=== PATIENT | male | born 1935 | race Caucasian/White ===

== ENCOUNTER 2016-11-23 10:49 | Inpatient (IN) ==
[2016-11-23] MEDS ORDERED: ACETAMINOPHEN 500 MG TABLET PO STA (10:59)
[2016-11-23] MEDS ORDERED: SODIUM CHLORIDE 0.9% 1,000 ML IV STA ×2 (11:02→11:33)
[2016-11-23] MEDS ORDERED: ACETAMINOPHEN 500 MG TABLET ONE (11:03)
[2016-11-23 11:17] LABS: Hematocrit 28.6 VOL% (42.0-52.0); Hemoglobin 10.4 GM/DL (14.0-18.0); Immature Granulocytes % 2.8 %; Immature Granulocytes Absolute 0.01 #; Lymphocytes # 0.3 10*3/uL (1.4-4.0); Lymphocytes % 69.4 % (21.2-54.2); Mean Corpuscular HGB Conc 36.4 GM/DL (32-36); Mean Corpuscular Hemoglobin 35 PG (27-34); Mean Corpuscular Volume 97.3 FL (87-102); Mean Platelet Volume 13.2 FL (9.6-12.0); Monocytes % 2.8 % (1.7-12.7); Neutrophils # 0.1 10*3/uL (1.4-7.4); Platelet Count 13 T/CUMM (130-400); Red Blood Count 2.94 MC/CUMM (3.8-5.5); Red Cell Distribution Width 15.2 % (9.3-17.3)
[2016-11-23 11:19] LABS: White Blood Count 0.4 T/CUMM (4-12)
[2016-11-23 11:22] LABS: Apearance,Urine CLEAR (Clear); Bacteria,Urine Moderate /HPF (Few); Bilirubin,Urine Negative (Negative); Blood, Urine Negative (Negative); Glucose,Urine (UA) Negative (Negative); Ketones,Urine 5 mg/dL (Negative); Nitrite,Urine Negative (Negative); Protein,Urine 30 MG/DL; RBC,Urine 2 /HPF (0-4); Squamous Epithelial Cell,Urine Occasional /HPF (0-10); Urine Color Amber (Yellow); Urine Specific Gravity 1.015 (1.001-1.035); WBC,Urine 4 /HPF (0-6)
[2016-11-23] MEDS ORDERED: LEVOFLOXACIN INJ 750 MG in PREMIX 1 EACH IV STA (11:27)
--- NOTE | 2016-11-23 11:29 | XRay Report ---
Exam: XR chest 1V portable Date: 11/23/2016 10:58 AM Indication: Shortness of breath fever Comparison: 12/10/2014 Technical: AP portable Findings: Mild cardiac enlargement. There is resolution of the right basilar interstitial pneumonic infiltrate when compared to the previous examination. No obvious consolidating infiltrates or effusions clearly seen. There is elevation right hemidiaphragm. No pneumothorax. External cardiac leads are present. Impression: 1. Cardiomegaly without decompensation or acute infiltrates with resolution of previous bilateral basilar pneumonic infiltrates . PROCEDURE INTERPRETED AT [facility] DEPARTMENT OF RADIOLOGY Final Report Signed by: Dr. Luigi Echevarria
[2016-11-23] MEDS ORDERED: LEVOFLOXACIN INJ 150 ML IV ONE (11:30)
--- NOTE | 2016-11-23 11:44 | Emergency Department Note ---
Rusty Christianson Manpreet, am scribing for, and in the presence of, Aleshia Alvarado DO 11: 43. IChristiano Debra, DO, personally performed the services described in this documentation, ascribed by Dragan Ojeda in my presence, and it is both accurate and complete . Arrival - Arrival Chief Complaint: Altered Mental Status Stated Complaint: altered LOC ED Nursing Triage Note: Complains of altered mental status and fever. Was recently diagnosed with uti. Currently taking macrobid. Started abx yesterday. Mode of Arrival: Stretcher Time Seen by Provider: 11/23/16 11:27 - History of Present Illness HPI Narrative: Pt is a 81 y/o male who is brought to the ED by his and granddaughter, his primary historians, who reported the pt with CC of AMS and fever since yesterday. Pt Dx'ed with UTI and started Abx yesterday. Pt is unable to how many kids he has when prompted. Pt also c/o pain to this right leg. Pt has a PMHx of bladder CA but is in remission. Pt also has leukemia and sees Dr. Roger. No other pains/complaints reported to ED. Allergies/Adverse Reactions: Allergies Allergy/AdvReac Type Severity Reaction Status Date / Time No Known Allergies Allergy Verified 03/11/16 15:24 Home Medications: Home Medications Medication Instructions Recorded Confirmed Type Aspirin [Ecotrin] 81 mg PO MOWEFR 12/06/14 11/23/16 History Gabapentin 600 mg PO DAILY 12/06/14 11/23/16 History Montelukast Tab [Singulair Tab] 10 mg PO DAILY 12/06/14 11/23/16 History Potassium Chloride 20 meq PO DAILY 12/06/14 11/23/16 History predniSONE TAB [PredniSONE] 10 mg PO DAILY #10 tablet 12/10/14 11/23/16 Rx Meloxicam [Meloxicam] 15 mg PO DAILY 11/23/16 11/23/16 History Nitrofurantoin Macrocrystal 100 mg PO BID 11/23/16 11/23/16 History [Nitrofurantoin] Omeprazole [Omeprazole] 20 mg PO DAILY 11/23/16 11/23/16 History amLODIPine [Norvasc] 10 mg PO DAILY 11/23/16 11/23/16 History Review of System - Review of System 12 point system: reviewed and no additional remarkable complaints except as stated - Review of System Constitutional: Present: chills, fever, weakness. Absent: diaphoresis Respiratory: Absent: cough, respiratory distress Cardiovascular: Absent: chest pain, dyspnea on exertion Gastrointestinal: Absent: abdominal pain, nausea, vomiting Musculoskeletal: Present: leg pain (Right leg pain) Neurological: Present: confusion. Absent: headache, weakness Medical,Surgical,& Family Hx - Medical History Cardio: History of: Aneurysm (Aortic (1967)) Neurology: History of: Vertigo HEENT: History of: Ear Problem (hard of hearing) Rheumatology: History of;: Rheumatoid Arthritis Respiratory: History of: Respiratory Problems (non-specific per family) Genitourinary: History of: Genitourinary Cancer (Bladder Cancer (2011)), Problems (status post cystectomy for bladder cancer) Gastrointestinal: History of: GERD Hematology: History of: Blood Disorders (myelodysplastic syndrome) - Surgical History Thoracic Surgeries: Patient denies;: Organ Transplant HEENT Surgeries: Surgical HX of: Eye Surgery (Cataract Surgery), Tonsilectomy & Adenoidectomy (removed at age 6) Abdominal Surgeries: Surgical HX of: Colonoscopy, Hernia Repair Reproductive Surgeries: Surgical HX of;: Genitourinary Surgery (urostomy (2011)) , Prostate Surgery (removed (2011)) - Social History Smoking Status: Never smoker Frequency of Alcohol Use: None Type of Drug Use: None Exam Vital Signs: Vital Signs Temperature 103.4 F H 11/23/16 10:55 Pulse Rate 108 H 11/23/16 13:15 Respiratory Rate 20 11/23/16 12:08 Blood Pressure 93/53 11/23/16 13:15 O2 Sat by Pulse Oximetry 95 11/23/16 13:15 - General Exam limited due to: ALOC - Head Head exam: Present: atraumatic, normocephalic, normal inspection - Eye Eye exam: Present: normal appearance, PERRL, EOMI - ENT ENT exam: Present: normal exam, normal oropharynx, mucous membranes dry, TM's normal bilaterally - Neck Neck exam: Present: normal inspection, full ROM, trachea midline. Absent: tenderness, thyromegaly - Chest Chest inspection: Present: normal inspection, symmetric chest wall rise. Absent : tenderness - Respiratory Respiratory exam: Present: normal lung sounds bilaterally. Absent: accessory muscle use, respiratory distress - Cardiovascular Cardiovascular exam: Present: normal rhythm, tachycardia, normal heart sounds. Absent: murmur, rubs, gallop - Abdominal Exam Abdominal exam: Present: soft, distention, normal bowel sounds, other ( Ileostomy in RLQ). Absent: tenderness, diminished bowel sounds - Extremities Exam Extremities exam: Present: full ROM. Absent: normal inspection, joint swelling - Expanded Lower Right Lower Lower leg exam: Present: ecchymosis - Back Exam Back exam: Present: normal inspection, full ROM. Absent: tenderness - Neurological Exam Neurological exam: Present: alert, CN II-XII intact, reflexes normal - Psychiatric Psychiatric exam: Present: normal affect, normal mood - Skin Skin exam: Present: warm, dry, intact, normal color. Absent: pallor Course Course Narrative: spoke with hospitalist who will admit the patient Results - Labs CBC & BMP: 11/23/16 11:03 11/23/16 11:03 Lab Results: I have reviewed the patients labs Labs: Laboratory Tests 11/23/16 11/23/16 10:57 11:03 WBC 0.4 L* RBC 2.94 L Hgb 10.4 L Hct 28.6 L MCH 35 H MCHC 36.4 H Plt Count 13 L* MPV 13.2 H Neut % (Auto) 25.0 L Lymph % (Auto) 69.4 H Neut # (Auto) 0.1 L Lymph # (Auto) 0.3 L [place] # (Auto) 0.0 L Urine pH 6.0 Ur Specific [place] 1.015 Urine Protein 30 Urine Ketones 5 Urine Urobilinogen 2.0 H Urine RBC 2 Urine WBC 4 Laboratory Tests 11/23/16 11/23/16 11/23/16 11:03 11:03 11:03 Sodium 135 L Potassium 3.9 Chloride 100 Carbon Dioxide 22 Anion Gap 16.9 H BUN 36 H Creatinine 1.80 H Lactic Acid 3.1 H Calcium 7.8 L Total Bilirubin 2.20 H Ammonia < 10 L Total Protein 6.2 L Albumin 3.3 L Amylase 18 L Lipase 50.0 L Blood Type O POSITIVE Antibody Screen Negative - Diagnostic Findings Procedure: Chest x-ray: report reviewed by me (1. Cardiomegaly without decompensation or acute infiltrates with resolution of previous bilateral basilar pneumonic infiltrates.) Disposition Clinical Impression: Sepsis Case discussed with: patient, patient's family Disposition: Still a Patient Condition: Stable Time of Disposition: 13:30
[2016-11-23 11:47] LABS: Albumin 3.3 G/DL (3.4-5.0); Bilirubin,Total 2.2 MG/DL (0.2-1.0); Calcium 7.8 MG/DL (8.5-10.1); Lactic Acid 3.1 MMOL/L (0.4-2.0); Osmolality,Calculated 277.1 MOS/KG (273-304); Potassium 3.9 MMOL/L (3.5-5.1); Total Protein 6.2 G/DL (6.4-8.3)
--- NOTE | 2016-11-23 12:27 | Ultrasound Report ---
US venous doppler LE RT Indication: Right lower extremity pain and swelling. Comparison: None. Technique: Using transcutaneous probe, color Doppler, spectral Doppler, and grayscale images prior to and following compression were obtained of the right lower extremity. Ultrasound images were captured and stored. Interrogated venous structures include the right common femoral vein, superficial femoral vein (proximal, mid, and distal), and popliteal vein. Findings: There is no evidence of thrombus within the interrogated right lower extremity venous structures. Spectral flow and color flow are present within the interrogated venous segments. Impression: 1. No evidence of venous thrombosis. 11/23/2016 12:24 PM PROCEDURE INTERPRETED AT [facility] DEPARTMENT OF RADIOLOGY Final Report Signed by: Dr. Venu Sen
[2016-11-23 12:58] LABS: Hypochromasia 2+; Lymphocytes 40 % (20-55); Microcytosis 1+; Platelet Estimate Decreased; Segmented Neutrophils 60 % (50-85); Total Cells Counted 100
[2016-11-23] MEDS ORDERED: ONDANSETRON 4 MG/2 ML VIAL IV PRN (14:01)
--- NOTE | 2016-11-23 14:15 | Hospitalist History & Physical ---
Assessment and Plan (1) Cellulitis Status: Acute Assessment and plan: Patient's exam suggests active infection in the right lower extremity was severely underestimated due to lack of white blood cells. He is certainly toxic if not septic at this point. Volume resuscitation will be undertaken with extended spectrum antibiotics including vancomycin coverage. Infectious disease will be consulted for management assistance. Patient will be placed on reverse isolation due to his neutropenia Current Visit: Yes (2) Bladder cancer Status: Chronic Assessment and plan: Cystectomy with ileal conduit Current Visit: Yes (3) Pancytopenia, acquired Status: Chronic Assessment and plan: Patient's medical records indicate a possible myelodysplastic syndrome. It is unclear what type of treatment he may have had previously as regard to his bladder cancer or composition of his current chemotherapy. His absolute neutrophil count of 100 indicates high potential for infection without dramatic inflammatory changes. Oncology will be consulted regarding details of his active treatment and recommendation on management of his thrombocytopenia. Current Visit: No History of Present Illness History of present illness: Mr. Alexander is a 81 year old male with history of bladder cancer whose family reports that he is being treated for "leukemia" records are incomplete but appears as though he has been diagnosed with myelodysplastic syndrome. He was treated with chemotherapy for approximately 6 months off chemotherapy for 3 month and resumed approximately 1 month ago for decreased blood counts. He completed his initial course on this occasion 3 weeks ago. The patient several days ago began to complain of right lower extremity pain family noted no changes. A urine culture done through his ileostomy led to initiation of Macrodantin as an outpatient. He developed a pattern of encephalopathy with memory and word finding problems and diffuse weakness. This morning the family noticed an area on the right calf of deep hyperpigmentation. He presented to the emergency department with a temperature of 103 sinus tachycardia and a blood pressure of 93/53. The patient has had no cough or sputum production nausea vomiting or diarrhea. Home Medications Medication Instructions Recorded Confirmed Type Aspirin [Ecotrin] 81 mg PO MOWEFR 12/06/14 11/23/16 History Gabapentin 600 mg PO DAILY 12/06/14 11/23/16 History Montelukast Tab [Singulair Tab] 10 mg PO DAILY 12/06/14 11/23/16 History Potassium Chloride 20 meq PO DAILY 12/06/14 11/23/16 History predniSONE TAB [PredniSONE] 10 mg PO DAILY #10 tablet 12/10/14 11/23/16 Rx Meloxicam [Meloxicam] 15 mg PO DAILY 11/23/16 11/23/16 History Nitrofurantoin Macrocrystal 100 mg PO BID 11/23/16 11/23/16 History [Nitrofurantoin] Omeprazole [Omeprazole] 20 mg PO DAILY 11/23/16 11/23/16 History amLODIPine [Norvasc] 10 mg PO DAILY 11/23/16 11/23/16 History Allergies Allergy/AdvReac Type Severity Reaction Status Date / Time No Known Allergies Allergy Verified 03/11/16 15:24 Medical,Surgical,& Family Hx - Medical History Neurology: History of: Vertigo HEENT: History of: Ear Problem Rheumatology: History of;: Rheumatoid Arthritis Genitourinary: History of: Genitourinary Cancer (Bladder Cancer (2011)) Gastrointestinal: History of: GERD Hematology: History of: Blood Disorders (myelodysplastic syndrome) - Surgical History Thoracic Surgeries: Patient denies;: Organ Transplant HEENT Surgeries: Surgical HX of: Eye Surgery (Cataract Surgery), Tonsilectomy & Adenoidectomy (removed at age 6) Abdominal Surgeries: Surgical HX of: Appendectomy, Cholecystectomy, Colonoscopy , Hernia Repair Reproductive Surgeries: Surgical HX of;: Genitourinary Surgery (urostomy (2011)) , Prostate Surgery (removed (2011)) - Social History Smoking Status: Never smoker Frequency of Alcohol Use: Rarely Type of Drug Use: None ROS unobtainable: due to delirium, other (Review of systems performed with spouse.) - Constitutional Constitutional: Present: daytime sleepiness, lethargy. Absent: chills, fever(s) , headache(s) - EENT Nose, mouth and throat: Absent: headache(s), neck pain - Cardiovascular Cardiovascular: Present: dyspnea. Absent: chest pain at rest, chest pain with activity, orthopnea, palpitations - Respiratory Respiratory: Absent: cough, hemoptysis, wheezing - Gastrointestinal Gastrointestinal: Absent: abdominal pain, coffee ground emesis, diarrhea, dysphagia, heartburn, hematemesis, hematochezia, melena, nausea, vomiting - Genitourinary Genitourinary: Absent: hematuria - Neurological Neurological: Present: confusion, memory loss. Absent: syncope - Psychiatric Psychiatric: Present: confusion Exam - Constitutional Vitals: Period Temp Pulse Resp BP Sys/Faulkner Pulse Ox Last 24 Hr 98.5 F-103.4 F 103-116 20-24 89-126/52-69 94-96 General appearance: over weight - Head Head exam: Present: atraumatic - Neck Neck exam: Absent: lymphadenopathy, thyromegaly - Respiratory Respiratory exam: Present: clear to auscultation bilaterally. Absent: rales, rhonchi, wheezes - Cardiovascular Cardiovascular exam: Present: regular rate and rhythm (Bilateral decrease in peripheral pulses), other. Absent: carotid bruit - GI/Abdominal GI/Abdominal exam: Present: normal bowel sounds. Absent: distended, organomegaly, tenderness - Extremities Exam Extremities exam: Present: other (Large ecchymosis right calf adjacent warmth with minimal skin changes per) - Neurological Exam Neurological exam: Present: alert. Absent: oriented X3 Results - Labs CBC & BMP: 11/23/16 11:03 11/23/16 11:03 Labs: Absolute neutrophils 100 Urinalysis benign Ammonia less than 10 Total bilirubin 2.2 Albumin 3.3 Lactate level 3.1 - Diagnostic Findings Procedure: Chest x-ray: image reviewed by me (Aortic ectasia versus aneurysm. Normal heart size clear lung reyes no infiltrate) Quality Measures - VTE Contraindication to Pharmacological VTE Prophylaxis: Thrombocytopenia Contraindication to Mechanical VTE Prophylaxis: Local Inflammation
[2016-11-23] MEDS: DEXTROSE 5% NACL 0.9% 1,000 ML IV SCH ×2 (15:10→21:32)
--- NOTE | 2016-11-23 16:30 | Infectious Disease Consult ---
Assessment and Plan (1) Cellulitis Status: Acute Assessment and plan: He has obvious cellulitis of the right posterior calf, there is a hemorrhagic area and this may represent an atypical infection which patient will be prone given his profound neutropenia. Recommendations: Agree with empiric vancomycin and meropenem. If we have no positive cultures he may need a punch biopsy of the area to get tissue cultures. Thank you very much for the consult. Will follow. Discussed with family at bedside Discussed with Dr. John Current Visit: Yes (2) Sepsis Status: Acute Assessment and plan: Source is cellulitis of the right leg and there may be associated bacteremia. He is hypotensive though there has been some improvement. He is on empiric antibiotics and we will follow up the cultures. He is awaiting transfer to the ICU for more close monitoring. Prognosis guarded Current Visit: Yes (3) Acute renal disease Status: Acute Assessment and plan: Most likely due to sepsis with hypotension. Renal function will be monitored very closely on vancomycin. If there is further worsening we may need to switch from vancomycin to daptomycin. Current Visit: No (4) Pancytopenia, acquired Status: Chronic Current Visit: No (5) Febrile neutropenia Status: Acute Assessment and plan: Patient is quite profoundly neutropenic with ANC of only about 100. He is at risk for severe infections including atypical infections. He is on broad- spectrum antibiotics currently and we will monitor closely. He may need to granulocyte colony-stimulating factor. Current Visit: Yes History of Present Illness Chief complaint: Fever, pancytopenia History of present illness: Mr. Alexander is a 81 year old male with history of leukemia diagnosed about 6 months ago and he has been getting chemotherapy last was about a month ago. He was relatively until about 3 days ago when he started having pain in his right leg, worse with weightbearing. This morning his noticed a large red spot to the back of the leg which is tender to touch. It is also has been weeping as the day progressed. Patient had high fever to 103 this morning and was confused and so ambulance was called to bring him to the hospital. He had a temperature of 103.4 on arrival. His blood pressure has been a little low and so though he was initially put on the floor decision was made to transfer him to the ICU. Patient noted to have profound neutropenia. I am asked to assist with antibiotics. Patient's last admission to hospital was about 1-1/2 years ago. he has not recently been on antibiotics. Home Medications Medication Instructions Recorded Confirmed Type Aspirin [Ecotrin] 81 mg PO MOWEFR 12/06/14 11/23/16 History Gabapentin 600 mg PO DAILY 12/06/14 11/23/16 History Montelukast Tab [Singulair Tab] 10 mg PO DAILY 12/06/14 11/23/16 History Potassium Chloride 20 meq PO DAILY 12/06/14 11/23/16 History predniSONE TAB [PredniSONE] 10 mg PO DAILY #10 tablet 12/10/14 11/23/16 Rx Meloxicam [Meloxicam] 15 mg PO DAILY 11/23/16 11/23/16 History Nitrofurantoin Macrocrystal 100 mg PO BID 11/23/16 11/23/16 History [Nitrofurantoin] Omeprazole [Omeprazole] 20 mg PO DAILY 11/23/16 11/23/16 History amLODIPine [Norvasc] 10 mg PO DAILY 11/23/16 11/23/16 History Allergies Allergy/AdvReac Type Severity Reaction Status Date / Time No Known Allergies Allergy Verified 03/11/16 15:24 12 point system: reviewed and no additional remarkable complaints except as stated (Per HPI) Medical,Surgical,& Family Hx - Medical History Cardio: History of: Aneurysm (Aortic (1967)) Neurology: History of: Vertigo HEENT: History of: Ear Problem Rheumatology: History of;: Rheumatoid Arthritis Respiratory: History of: Respiratory Problems (non-specific per family) Genitourinary: History of: Genitourinary Cancer (Bladder Cancer (2011)), Problems (status post cystectomy for bladder cancer) Gastrointestinal: History of: GERD Hematology: History of: Blood Disorders (myelodysplastic syndrome) - Surgical History Thoracic Surgeries: Patient denies;: Organ Transplant HEENT Surgeries: Surgical HX of: Eye Surgery (Cataract Surgery), Tonsilectomy & Adenoidectomy (removed at age 6) Abdominal Surgeries: Surgical HX of: Appendectomy, Cholecystectomy, Colonoscopy , Hernia Repair Reproductive Surgeries: Surgical HX of;: Genitourinary Surgery (urostomy (2011)) , Prostate Surgery (removed (2011)) - Social History Smoking Status: Never smoker Frequency of Alcohol Use: Rarely Type of Drug Use: None Infectious Disease Exam H&P - Constitutional Vitals: Vital Signs Temp Pulse Resp BP Pulse Ox 98.0 F 131 H 28 H 114/73 100 11/23/16 15:42 11/23/16 15:42 11/23/16 15:42 11/23/16 15:42 11/23/16 15:42 Intake and Output 11/23/16 11/23/16 11/23/16 07:59 15:59 23:59 Intake Total 2850 / 2850 Balance 2850 / 2850 Intake: IV 2150 / 2150 Levaquin Inj 750 mg In 150 / 150 Premix 1 Each @ 100 mls/ hr IV 1X ED STA Rx#: [id number] Ns 1,000 ml @ 999 mls/hr 1999 / 1999 IV 1X ED BOLUS STA Rx#: [id number] Intake - Additional IV 700 / 700 Volume (mLs) Left Hand 700 / 700 Other: Weight 106.367 kg Patient Weight 11/23/16 23:59 Weight 106.367 kg Exam: General: Patient a bit unwell-looking, he is somewhat confused though he is alert and talking HEENT: Mucous membranes pink and moist, anicteric acyanotic, surgical right pupil, left pupil reactive to light, no oropharyngeal exudates Neck: Supple, no thyroid gland enlargement Respiratory system: Breath sounds vesicular, no crepitations or wheezes Cardiovascular: Normal S1 and S2, no murmurs appreciated Abdomen: Urostomy present in right lower quadrant, normal bowel sounds, soft nontender throughout, no organomegaly or mass Genitourinary: No suprapubic, slightly cloudy urine from the urostomy Extremities: Mild bilateral lower extremity edema, there is a large somewhat hemorrhagic warm area to the posterior right calf, there is some vesiculation over the area with some mild weeping of serous fluid Skin: No rash Reports - Labs CBC & BMP: 11/23/16 11:03 11/23/16 11:03 Labs: Laboratory Results - last 24 hr 11/23/16 11/23/16 11/23/16 10:57 11:03 11:03 WBC 0.4 L* RBC 2.94 L Hgb 10.4 L Hct 28.6 L MCV 97.3 MCH 35 H MCHC 36.4 H RDW 15.2 Plt Count 13 L* MPV 13.2 H Neut % (Auto) 25.0 L Lymph % (Auto) 69.4 H [place] % (Auto) 2.8 Eos % (Auto) 0.0 Baso % (Auto) 0.0 Neut # (Auto) 0.1 L Lymph # (Auto) 0.3 L [place] # (Auto) 0.0 L Eos # (Auto) 0.0 Baso # (Auto) 0.0 Total Counted 100 Immature Gran % 2.8 Nucleated RBC % 0.0 Immature Gran # 0.01 Segmented Neutrophils 60 Lymphocytes 40 Nucleated RBCs # 0.00 Platelet Estimate Decreased Hypochromasia 2+ Microcytosis 1+ Circ Anticoag PTT Sodium 135 L Potassium 3.9 Chloride 100 Carbon Dioxide 22 Anion Gap 16.9 H BUN 36 H Creatinine 1.80 H GFR Calculation 44 BUN/Creatinine Ratio 20.00 Glucose 106 Calculated Osmolality 277.1 Lactic Acid 3.1 H Calcium 7.8 L Total Bilirubin 2.20 H AST 20 ALT 24 Alkaline Phosphatase 51 Ammonia Lactate Dehydrogenase 200 Total Protein 6.2 L Albumin 3.3 L Globulin 2.9 Albumin/Globulin Ratio 1.1 Amylase 18 L Lipase 50.0 L Urine Color [place] Urine Appearance Clear Urine pH 6.0 Ur Specific [place] 1.015 Urine Protein 30 Urine Glucose (UA) Negative Urine Ketones 5 Urine Blood Negative Urine Nitrate Negative Urine Bilirubin Negative Urine Urobilinogen 2.0 H Urine Leukocytes Negative Urine RBC 2 Urine WBC 4 Ur Squamous Epith Cells Occasional Urine Bacteria Moderate Ur Culture Indicated? Not indicated Blood Type Antibody Screen 11/23/16 11/23/16 11/23/16 11:03 11:03 11:03 WBC RBC Hgb Hct MCV MCH MCHC RDW Plt Count MPV Neut % (Auto) Lymph % (Auto) [place] % (Auto) Eos % (Auto) Baso % (Auto) Neut # (Auto) Lymph # (Auto) [place] # (Auto) Eos # (Auto) Baso # (Auto) Total Counted Immature Gran % Nucleated RBC % Immature Gran # Segmented Neutrophils Lymphocytes Nucleated RBCs # Platelet Estimate Hypochromasia Microcytosis Circ Anticoag PTT 37.9 Sodium Potassium Chloride Carbon Dioxide Anion Gap BUN Creatinine GFR Calculation BUN/Creatinine Ratio Glucose Calculated Osmolality Lactic Acid Calcium Total Bilirubin AST ALT Alkaline Phosphatase Ammonia < 10 L Lactate Dehydrogenase Total Protein Albumin Globulin Albumin/Globulin Ratio Amylase Lipase Urine Color Urine Appearance Urine pH Ur Specific [place] Urine Protein Urine Glucose (UA) Urine Ketones Urine Blood Urine Nitrate Urine Bilirubin Urine Urobilinogen Urine Leukocytes Urine RBC Urine WBC Ur Squamous Epith Cells Urine Bacteria Ur Culture Indicated? Blood Type O POSITIVE Antibody Screen Negative - Diagnostic Findings Procedure: Chest x-ray: image reviewed by me, report reviewed by me (No consolidation appreciated)
[2016-11-23] MEDS: MEROPENEM 1,000 MG in SODIUM CHLORIDE 0.9% 100 ML IV SCH (16:33)
[2016-11-23] MEDS: VANCOMYCIN INJ 1,500 MG in SODIUM CHLORIDE 0.9% 500 ML IV SCH (17:50)
[2016-11-23] MEDS ORDERED: FUROSEMIDE 40 MG/4 ML VIAL IV ONE (20:27)
[2016-11-23] MEDS ORDERED: DEXTROSE 5% NACL 0.9% 1,000 ML IV SCH (20:30)
[2016-11-23] MEDS ORDERED: SODIUM CHLORIDE 0.9% 1,000 ML IV SCH (20:30)
--- NOTE | 2016-11-23 20:35 | Event Note ---
Called by nursing that patient in resp distress. Patient received 3 liters of NS. Duonebs, solumedrol, IV lasix ordered. Patient tachycardic sinus tachy with pac. Blood pressure stable. Ordered dilt drip for HR greater than 140. Patient is extremely neutropenic and thrombocytopenic due to chemotherapy he received from Dr. Roger. He is in septic shock and has a poor prognosis. echo in am ordered. This is a complicated chemo patient that should have been admitted by Oncology. I have readdressed his code status and he wants to remain a full code at this time. Patient has diminished breath sounds and is tight and wheezing. He has a large hematoma on his leg and I will give irradiated platelets. Critical care time 35 min
[2016-11-23] MEDS: FAMOTIDINE 20 MG/2 ML VIAL IV SCH (21:32)
[2016-11-23] MEDS: methylPREDNISolone SOD SUC 40 MG/1 ML VIAL IV SCH (21:39)
[2016-11-23] MEDS ORDERED: ALBUTEROL/IPRATROPIUM 3 ML NEB RESP TX SCH (23:00)
[2016-11-23 23:19] LABS: ABG Base Excess -5.2 MMOL/L (-2.5-2.5); ABG HCO3 20.2 MMOL/L (20-26); ABG Oxygen Saturation 95.5 % (95-100); ABG PH 7.426 (7.35-7.45); ABG PO2 81.8 MM HG (80-95); ABG TCO2 15.4 MMOL/L (23-27); Allen Test Positive
[2016-11-23] MEDS: CLORAZEPATE 7.5 MG TABLET PO PRN (23:47)
[2016-11-24] MEDS: DILTIAZEM INJ 100 MG in SODIUM CHLORIDE 0.9% 100 ML IV SCH ×3 (01:36→21:25)
[2016-11-24] MEDS ORDERED: ACETAMINOPHEN 500 MG TABLET PO ONE (02:35)
[2016-11-24] MEDS ORDERED: ACETAMINOPHEN 325 MG TABLET PO PRN (02:41)
[2016-11-24 02:47] LABS: Hematocrit 28.7 VOL% (42.0-52.0); Hemoglobin 10.6 GM/DL (14.0-18.0); Lymphocytes # 0.2 10*3/uL (1.4-4.0); Lymphocytes % 43.2 % (21.2-54.2); Mean Corpuscular HGB Conc 36.9 GM/DL (32-36); Mean Corpuscular Hemoglobin 36 PG (27-34); Mean Platelet Volume 10.5 FL (9.6-12.0); Monocytes % 8.1 % (1.7-12.7); Neutrophils # 0.2 10*3/uL (1.4-7.4); Neutrophils % 48.7 % (38.7-73.9); Red Blood Count 2.99 MC/CUMM (3.8-5.5); Red Cell Distribution Width 15.2 % (9.3-17.3)
[2016-11-24] MEDS: LEVALBUTEROL 1.25 MG/3 ML NEB RESP TX SCH ×6 (02:49→23:16)
[2016-11-24 02:52] LABS: White Blood Count 0.4 T/CUMM (4-12)
[2016-11-24 02:53] LABS: Platelet Count 33 T/CUMM (130-400)
[2016-11-24 03:18] LABS: ABG Base Excess -2.3 MMOL/L (-2.5-2.5); ABG HCO3 22.5 MMOL/L (20-26); ABG Oxygen Saturation 97.1 % (95-100); ABG PCO2 24.9 MM HG (35-48); ABG PH 7.498 (7.35-7.45); ABG TCO2 16.9 MMOL/L (23-27); Allen Test Positive
--- NOTE | 2016-11-24 03:23 | Event Note ---
Patient is having a mental status changes. Patient's pupils were asymmetric at this time. We are going to take him to CT scan and get a CT scan of his head emergently. Patient is awake but somewhat confused and has been running a fever during the night. Have ordered some Tylenol.
[2016-11-24 03:31] LABS: Calcium 7.9 MG/DL (8.5-10.1); Osmolality,Calculated 274.2 MOS/KG (273-304); Potassium 3.5 MMOL/L (3.5-5.1)
[2016-11-24] MEDS: methylPREDNISolone SOD SUC 40 MG/1 ML VIAL IV SCH ×4 (03:55→21:25)
[2016-11-24 04:04] LABS: Band Neutrophils 30 % (0-10); Lymphocytes 30 % (20-55); Platelet Estimate Decreased; Segmented Neutrophils 10 % (50-85); Total Cells Counted 100
--- NOTE | 2016-11-24 05:47 | XRay Report ---
XR chest 1V portable Indication: Shortness of breath Comparison: None. Technique: Portable AP chest was performed. Findings: Heart size is normal. Pulmonary vasculature appears within normal limits. No significant abnormality of the mediastinal contours demonstrated. Lungs are clear. Bones and soft tissues demonstrate no significant abnormalities. Impression: 1. No evidence of acute pathology. 11/24/2016 5:43 AM PROCEDURE INTERPRETED AT [facility] DEPARTMENT OF RADIOLOGY Final Report Signed by: Dr. Venu Sen
--- NOTE | 2016-11-24 06:00 | EKG Report ---
Stationary ECG Study [facility] ER Test Date: 11/23/2016 11:13:22 AM Pat Name: RAMON HENAO Department: Room: 130 Gender: M Import/Export Clerk: : 1935 Requested by: Aleshia Alvarado Order Number: [id number] Reading MD: SOFI MURRAY Intervals [place] Rate: 112 P: 73 IN: 170 QRS: 63 QRSD: 90 T: 79 QT: 296 QTc: 362 Interpretive Statements SINUS TACHYCARDIA WITH OCCASIONAL SUPRAVENTRICULAR PREMATURE COMPLEXES Electronically Signed On 11-24-16 07:49:03 CDT by SOFI MURRAY [email or web address]
--- NOTE | 2016-11-24 06:26 | CT Report ---
CT head/brain wo con Indication: Altered mental status. Comparison: CT head 11/24/2016. Technique: CT of the brain was performed without administration of intravenous contrast. The CT examination was performed using one or more of the following dose reduction techniques: Automatic exposure control, adjustment of the mA and kV according to patient size, use of acute or iterative reconstruction techniques. Findings: There is no evidence of acute intracranial mass, hemorrhage, or infarction. Generalized cerebral atrophy is present. Areas of decreased attenuation within the periventricular white matter and cerebral white matter are present which could be compatible with microvascular ischemia. The basal cisterns are patent. No significant abnormality is demonstrated to involve the posterior fossa or cerebellum. Orbits and globes demonstrate no evidence of significant pathology. Bilateral cataract surgery is suggested. The paranasal sinuses are clear. No significant abnormality is demonstrated to involve the mastoid air cells. The calvarium and overlying soft tissues demonstrate no evidence of acute pathology. Impression: 1. No CT evidence of acute intracranial pathology. Stable interval appearance of the brain. 11/24/2016 6:22 AM PROCEDURE INTERPRETED AT [facility] DEPARTMENT OF RADIOLOGY Final Report Signed by: Dr. Venu Sen
--- NOTE | 2016-11-24 06:39 | EKG Report ---
Stationary ECG Study [facility] Test Date: 11/23/2016 8:22:13 PM Pat Name: RAMON HENAO Department: Room: 130 Gender: M Security Checker: : 1935 Requested by: Karen Ferreira Order Number: [id number] Reading MD: SOFI MURRAY Intervals [place] Rate: 120 P: 112 TN: 174 QRS: 119 QRSD: 88 T: 129 QT: 325 QTc: 396 Interpretive Statements SINUS TACHYCARDIA WITH FREQUENT SUPRAVENTRICULAR PREMATURE COMPLEXES Possible lead misplacement Electronically Signed On 11-24-16 07:52:12 CDT by SOFI MURRAY [email or web address]
[2016-11-24] MEDS ORDERED: LABETALOL 20 MG/4 ML SYRINGE IV PRN (06:41)
--- NOTE | 2016-11-24 06:51 | XRay Report ---
XR chest 1V portable Indication: Shortness of breath Comparison: Chest x-ray 11/23/2016 Technique: Portable AP chest was performed. Findings: Heart size is borderline in size to minimally enlarged. Mild ectasia of the thoracic aorta is stable.. Pulmonary vasculature appears within normal limits. No significant abnormality of the mediastinal contours demonstrated. Lungs are clear. Bones and soft tissues demonstrate no significant abnormalities. Impression: 1. No evidence of acute pathology. Stable interval appearance of the chest. 11/24/2016 6:48 AM PROCEDURE INTERPRETED AT [facility] DEPARTMENT OF RADIOLOGY Final Report Signed by: Dr. Venu Sen
[2016-11-24] MEDS: MEROPENEM 1,000 MG in SODIUM CHLORIDE 0.9% 100 ML IV SCH ×2 (06:57→16:02)
[2016-11-24] MEDS: LABETALOL 20 MG/4 ML SYRINGE IV SCH (07:19)
--- NOTE | 2016-11-24 07:59 | Oncology Consult Note ---
History of Present Illness History of present illness: Mr. Alexander is a 81 year old male who has had pancytopenia since early in 2014. 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 At that time the patient was found to have approximately 20% blasts on bone marrow but cytogenetics were normal. The patient was treated with Dacogen. At the time of an evaluation of the patient on October 30, 2016, Dr. Roger found pancytopenia once again because the patient had severe neutropenia and thrombocytopenia with a platelet count of 50,000. In spite of comments made on this chart concerning the chemotherapy causing the pancytopenia , it appears that the myelodysplastic syndrome with increased blasts is actually the cause of the pancytopenia. Apparently the patient has been started back on Dacogen recently. He has been found to have cellulitis in his right calf. In addition, as I was dictating this, I was notified that the patient has gram- negative rods on 2 blood cultures. He is currently on Merrem and vancomycin. Infectious disease is consulted. Past medical history: No known allergies The patient had been followed in the past for bladder cancer. Past medical history is positive for: Aortic aneurysm Vertigo Rheumatoid arthritis Respiratory congestion and dyspnea Bladder cancer treated with cystectomy. GERD Surgical history: Positive cataract surgery, tonsillectomy and adenoidectomy at age 6. Positive for appendicitis post appendectomy, cholecystectomy, colonoscopy and hernia repair. Prostatectomy in 2011. Social history: Occasional alcoholic beverage intake. He has never smoked. Family history: Negative for AML or bladder cancer. Positive for arterial sclerosis. Review of systems: General: Positive for fatigue, fever and night sweats that are long-standing. ENT: Negative for mouth ulcers, nasal congestion and nasal drainage. Eyes: Negative for vision change and decreased visual acuity. Respiratory: Positive for pulmonary congestion and occasional cough. Negative for chest pain or hemoptysis. Cardiovascular: Positive for aortic aneurysm. Negative for cardiac syncope, claudication or irregular heartbeat/palpitations. GI: Positive for GERD. Negative for abdominal pain, constipation, decreased appetite, diarrhea or vomiting. : The patient has had a cystectomy. Endocrine: Negative for cold intolerance. Negative for thyroid disease or diabetes. Psychiatric: Negative for psychiatric illness. Skin: Negative for rash or skin lesions. Musculoskeletal: Positive for rheumatoid arthritis. Hematologic: Positive for pancytopenia but negative for easy bleeding or easy bruising. Physical examination: General: The patient appears to be acutely and chronically ill. Eyes: He has bilateral arcus senilis with normal lids and conjunctivae. His vision does not appear to be very good. ENT: His oral mucosa and pharynx are normal. He is hard of hearing. His trachea is midline and he has no neck masses. Lungs and thorax: He is tachypneic. His chest moves symmetrically with respiration. There is no chest wall tenderness. Breath sounds are coarse throughout but there are no rubs, rales or rhonchi. Expiratory phase of respiration is relatively normal. Cardiovascular: His heart rhythm is regular without murmur, gallop or rub. There is no jugular venous distention, clubbing or cyanosis. Abdomen: Bowel sounds are normal. There are no abdominal masses, organomegaly, distention, tenderness or ascites. Musculoskeletal: He has arthritic changes in his hands. 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 Neurologic: Cranial nerves II through XII appear to be intact except that he is hard of hearing. He has no obvious focal neurologic deficits. Nodes: I palpate no cervical, supraclavicular, submandibular, axillary adenopathy. Skin: Nailbeds appear normal except that his nails are very thin. I see no other significant abnormalities of the skin other than his right lower leg is bandaged because of the cellulitis. I agree with the current antibiotic plans and hematologic support. However, this patient's prognosis is exceedingly poor because of his long-standing myelodysplastic syndrome that does not appear to be responding well to resumption of chemotherapy yet. Blood work on this admission includes a white cell count of 400 with an absolute neutrophil count of 200 today. His hemoglobin is 10.6 and his platelet count is 33,000. His comprehensive metabolic profile includes a serum creatinine of 1.8 on admission and the creatinine is down to 1.6 today. In addition, the patient has a low serum albumin of 3.3. The patient was supposed to be scheduled for a knee replacement but I doubt that he will ever undergo that procedure. In addition, this is a myelodysplastic syndrome with pancytopenia, according to Dr. Roger. The patient is 81 years old and his short-term prognosis is very poor in view of this fact. Thank you for consulting me. I will follow him with you. His prognosis is very grave, in my opinion. Impression: Gram-negative neutropenic sepsis possibly developing from cellulitis of the right calf pancytopenia due to myelodysplastic syndrome neutropenia with an ANC of 200 anemia with hemoglobin of 10.6 thrombocytopenia with platelet count of 33,000 COPD history of aortic aneurysm rheumatoid arthritis renal failure Home Medications Medication Instructions Recorded Confirmed Type Aspirin [Ecotrin] 81 mg PO MOWEFR 12/06/14 11/23/16 History Gabapentin 600 mg PO BID 12/06/14 11/23/16 History Montelukast Tab [Singulair Tab] 10 mg PO BEDTIME 12/06/14 11/23/16 History Potassium Chloride 10 meq PO DAILY 12/06/14 11/23/16 History predniSONE TAB [PredniSONE] 10 mg PO DAILY #10 tablet 12/10/14 11/23/16 Rx Gabapentin Cap/Tab [Neurontin 200 mg PO BEDTIME 11/23/16 11/23/16 History Cap/Tab] Meloxicam [Meloxicam] 15 mg PO DAILY 11/23/16 11/23/16 History Nitrofurantoin Macrocrystal 100 mg PO BID 11/23/16 11/23/16 History [Nitrofurantoin] Omeprazole [Omeprazole] 20 mg PO Q3DAY 11/23/16 11/23/16 History amLODIPine [Norvasc] 5 mg PO DAILY 11/23/16 11/23/16 History Allergies Allergy/AdvReac Type Severity Reaction Status Date / Time No Known Allergies Allergy Verified 03/11/16 15:24 Medical,Surgical,& Family Hx - Medical History Cardio: History of: Aneurysm (Aortic (1967)) Neurology: History of: Vertigo HEENT: History of: Ear Problem Rheumatology: History of;: Rheumatoid Arthritis Respiratory: History of: Respiratory Problems (non-specific per family) Genitourinary: History of: Genitourinary Cancer (Bladder Cancer (2011)), Problems (status post cystectomy for bladder cancer) Gastrointestinal: History of: GERD Hematology: History of: Blood Disorders (myelodysplastic syndrome) - Surgical History Thoracic Surgeries: Patient denies;: Organ Transplant HEENT Surgeries: Surgical HX of: Eye Surgery (Cataract Surgery), Tonsilectomy & Adenoidectomy (removed at age 6) Abdominal Surgeries: Surgical HX of: Appendectomy, Cholecystectomy, Colonoscopy , Hernia Repair Reproductive Surgeries: Surgical HX of;: Genitourinary Surgery (urostomy (2012)) , Prostate Surgery (removed (2012)) - Social History Smoking Status: Never smoker Frequency of Alcohol Use: Rarely Type of Drug Use: None Exam - Constitutional Vitals: Period Temp Pulse Resp BP Sys/Faulkner Pulse Ox Last 24 Hr 98.0 F-103.4 F 81-152 17-97 89-156/52-108 88-100 Results - Labs CBC & BMP: 11/24/16 02:43 11/24/16 02:43 Quality Measures - VTE Contraindication to Pharmacological VTE Prophylaxis: Thrombocytopenia Contraindication to Mechanical VTE Prophylaxis: Local Inflammation
--- NOTE | 2016-11-24 08:47 | Physician Query Form ---
CLICK EDIT DOCUMENT TO SELECT QUERY ANSWER --> OK --> SIGN Diamante Sen RN, CCDS Certified Clinical Driver Retraining Instructor W) [phone] (f) [phone] [email or web address] PROVIDERS: Make your selection(s) from the choices in EACH section by typing an "x" and enter comments in the comment section. Please use your independent medical judgment in providing your response. This request does not imply that any particular answer is desired or expected. CLINICAL INDICATORS: (Providers should not edit this section) The medical record indicates that the patient was admitted with Sepsis, AMS, on the 7th: "Patient's pupils were asymmetric at this time" and CT of the brain was ordered. ACUITY: ( x) Acute ( ) Acute on Chronic ( ) Chronic ( ) Clinically unable to determine NATURE: ( x) Delirium due to general medical condition ( ) Dementia ( ) Encephalopathy ( ) Unconscious ( ) Transient level of awareness ( ) Comatose ( ) Locked-in State ( ) Persistent Vegetative State ( ) Other, please specify: ( ) Clinically unable to determine Please indicate the underlying cause of the altered mental status (CHECK ALL THAT APPLY): ( ) Baseline dementia ( ) Alzheimer's disease ( ) Parkinson's disease ( ) Lewy body dementia ( ) Acute stroke ( ) Late effect of stroke ( ) Reactive (from emotional stress, psychological trauma) ( ) Due to narcotics/other drugs ( ) Post procedural delirium ( ) Transient ischemic attack ( ) Generalized cerebral edema ( ) Normal pressure hydrocephalus ( ) Psychiatric illness ( ) Other, please specify: ( ) Clinically unable to determine Please indicate if there is an infection, sepsis, dehydration or specific organ failure that is causing the dementia. Be specific with clarifying the relationship between that process and the mental status change. COMMENTS: PLEASE ALSO DOCUMENT RESPONSE IN PROGRESS NOTES AND/OR DISCHARGE SUMMARY Use of terms such as suspected, likely, or probable (associated with a specific diagnosis that is being evaluated, monitored, or treated as if it exists) are acceptable and can be restated in the discharge summary if not ruled out. MTDD
[2016-11-24] MEDS ORDERED: predniSONE 10 MG TABLET PO SCH (09:00)
[2016-11-24] MEDS ORDERED: PANTOPRAZOLE 40 MG TABLET PO SCH (09:00)
[2016-11-24] MEDS: FAMOTIDINE 20 MG/2 ML VIAL IV SCH ×2 (09:08→21:25)
--- NOTE | 2016-11-24 10:51 | Infectious Disease Progress ---
Assessment and Plan (1) Cellulitis Status: Acute Assessment and plan: Cellulitis posterior aspect of the right leg, the area looks slightly better today. Blood cultures coming back positive for gram-negative rods. Recommendations: Continue empiric broad-spectrum antibiotics pending finalization of the cultures. We will also repeat blood cultures tomorrow. Adjust antibiotics as able depending on finalized culture results. r Current Visit: Yes (2) Sepsis Status: Acute Assessment and plan: Patient has septicemia due to gram-negative bacteria. He seems slightly better today supportive of a positive response to the current antibiotics. Prognosis guarded Current Visit: Yes (3) Acute renal disease Status: Acute Assessment and plan: Most likely due to sepsis with hypotension. Renal function slightly better today. If no gram positives isolated by day 3 will stop the vancomycin. Current Visit: No (4) Pancytopenia, acquired Status: Chronic Assessment and plan: Reportedly due to myelodysplastic syndrome. Current Visit: No (5) Febrile neutropenia Status: Acute Assessment and plan: Causes gram-negative septicemia patient is on appropriate broad-spectrum antibiotic therapy. Current Visit: Yes Infectious Disease - PN: Subj Interval history: Patient was transferred to ICU yesterday due to hypotension and confusion. Overnight he had severe tachycardia to almost 150 and is now on a Cardizem drip. He also had fever last night over 102. This morning he is feeling a little better less pain in his right leg. Infectious Disease Exam (PN) - Constitutional Vitals: Temp Pulse Resp BP Pulse Ox 99.5 F 89 21 104/73 97 11/24/16 08:00 11/24/16 10:30 11/24/16 10:00 11/24/16 10:30 11/24/16 10:00 General appearance: over weight Exam: General appearance: A little more alert today and very pleasant, less toxic looking - Eye Eye exam: Present: EOMI. no icterus Pupils: Present: SHAZIA - ENT ENT exam: no oral exudates - Respiratory Respiratory exam: vesicular BS, no crepitations or wheezes - Cardiovascular Cardiovascular exam: regular rate and rhythm, no murmurs - GI/Abdominal GI/Abdominal exam: normal bowel sounds, soft, non-tender, no organomegaly or mass - Extremities Exam Extremities exam: The hemorrhagic area to the posterior right leg is less angry looking, also less hyperemic and indurated. The overlying blisters have ruptured with denuding of the skin. There is a large bulla just below the hemorrhagic area. - Skin Skin exam: no rash Results - Labs CBC & BMP: 11/24/16 02:43 11/24/16 02:43 Lab Results: I have reviewed the past 24 hour labs Quality Measures - VTE Contraindication to Pharmacological VTE Prophylaxis: Thrombocytopenia Contraindication to Mechanical VTE Prophylaxis: Local Inflammation
--- NOTE | 2016-11-24 14:07 | Hospitalist Progress Note ---
Assessment and Plan - Time spent with patient Time spent with patient: Greater than 30 minutes (Sepsis with gram negative rods growing in blood cultures collected yesterday. Patient is receiving empiric vancomycin and meropenem antibiotic therapy. Infectious disease consulted.) (1) Sepsis Problem details: Gram-negative rods reported growing and blood cultures and urine cultures collected yesterday. Patient is receiving empiric vancomycin and meropenem empiric coverage selected by ID bmw sales consultant. Of note patient's urinalysis report was rather innocuous while gram-negative rods are growing in urine culture. Status: Acute Current Visit: Yes Qualifiers: Sepsis type: sepsis due to unspecified organism Qualified Code(s): A41.9 - Sepsis, unspecified organism (2) Acute kidney injury Problem details: Possibly related to hypo-intensive episode related to sepsis and septic shock. Continue IV hydration to improve sepsis and renal perfusion. BUN and creatinine are decreasing today compared with yesterday. Status: Acute Current Visit: Yes (3) Pancytopenia Problem details: Multifactorial including myelodysplastic syndrome (confirmed by bone marrow biopsy December 2015). 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 Platelet count improved from 13,000 yesterday to 33,000 today. No spontaneous bleeding noted. Status: Acute Current Visit: Yes (4) Ileostomy in place Problem details: Increases patient's risk for recurrent infections. Patient has a history of bladder cancer managed with cystectomy and ileal conduit. He reportedly completed chemotherapy completed initial course 3 months ago but restarted the beginning of last month. It is unclear if a second cancer diagnosis has been confirmed or if patient has a recurrence of known bladder cancer. Oncologist consulted. Status: Acute Current Visit: Yes (5) Cellulitis of right leg Problem details: Ruptured bullous lesion along proximal calf. Lower right calf bullous lesion intact still fluid-filled. Status: Acute Current Visit: Yes (6) GERD (gastroesophageal reflux disease) Problem details: Managed with antireflux behaviors/maneuvers and PPI therapy. Status: Acute Current Visit: Yes (7) COPD (chronic obstructive pulmonary disease) Problem details: Without acute exacerbation. No history of tobacco use. Beta- 2 agonists inhaler therapy as required. Bedside incentive spirometry with cough and deep breathing exercises reviewed. Chest x-ray does not reveal acute cardiopulmonary pathology today. Status: Acute Current Visit: Yes Hospitalist: Subjective Interval history: Patient is alert and fully oriented. He communicates well verbally. He intends to return home with his posthospital discharge. He declines the option of swing bed or shelter facility rehabilitation. Exam - Constitutional Vitals: Period Temp Pulse Resp BP Sys/Faulkner Pulse Ox Last 24 Hr 98.0 F-102.9 F 81-152 14-97 87-156/56-108 88-100 General appearance: normal weight, no acute distress - Head Head exam: Present: normocephalic - Eye Eye exam: Present: EOMI Pupils: Present: SHAZIA - Neck Neck exam: Present: normal inspection. Absent: meningismus - Respiratory Respiratory exam: Present: clear to auscultation bilaterally, other (Low volume wheezes audible at bedside but not confirmed when listening with stethoscope) - Cardiovascular Cardiovascular exam: Present: regular rate and rhythm - GI/Abdominal GI/Abdominal exam: Present: normal bowel sounds, distended, soft, other (Right lower quadrant ileostomy stoma with collection bag in place. ). Absent: tenderness, rebound - Extremities Exam Extremities exam: Present: normal inspection, edema (1+ right greater than left lower extremity pitting edema). Absent: calf tenderness - Neurological Exam Neurological exam: Present: alert, oriented X3 - Psychiatric Psychiatric exam: Present: normal affect, normal mood. Absent: agitated, anxious - Skin Skin exam: Present: normal color, dry. Absent: rash Results - Labs CBC & BMP: 11/24/16 02:43 11/24/16 02:43 - Diagnostic Findings Procedure: Ultrasound: other, report reviewed by me (Right lower leg ultrasound no acute DVT) Quality Measures - VTE Contraindication to Pharmacological VTE Prophylaxis: Thrombocytopenia Contraindication to Mechanical VTE Prophylaxis: Local Inflammation Sepsis Sepsis documentation within 6 hours of presentation: passive leg raise, fluid change - Physical Exam Respiratory exam: clear to auscultation bilaterally Capillary Refill: Less Than 3 Seconds Peripheral pulses: Radial (L): 1+, Radial (R): 1+, Dorsalis Pedis (L) PM: 1+, Dorsalis Pedis (R) PM: 1+, Posterior Tibialis (L): 1+, Posterior Tibialis (R): 1 + Cardiovascular exam: regular rate and rhythm Skin exam: normal color
[2016-11-24] MEDS: VANCOMYCIN INJ 1,500 MG in SODIUM CHLORIDE 0.9% 500 ML IV SCH ×2 (16:04→17:00)
--- NOTE | 2016-11-24 19:14 | ECHO Report ---
Virgilio Alexander Exam Date: 11/24/2016 09:06 Referring Physician: Technologist: jesu Blanco ARDMS, RVT Age: 81 Ht (in): 72 Wt (lb): 234 Gender: M Exam Location: [facility] Echo Indications: Tachycardia, unspecified, Septic shock, Respiratory distress, Cellulitis, Bladder Cancer BP: 93 / 67 HR: 87 Rhythm: Sinus Technical Quality: IMPRESSIONS Normal left ventricular size, without hypertrophy. Borderline global hypokinesis, estimated left ventricular ejection fraction 50%. Grade 2 diastolic dysfunction. Mild biatrial enlargement. Mild mitral regurgitation. Aortic valve sclerosis, without stenosis, with mild insufficiency. Mild pulmonary hypertension. Mild pulmonic valve insufficiency. MEASUREMENTS (Male / Female) Normal Values 2D ECHO LV Diastolic Diameter PLAX 5.1 cm 4.2 - 5.9 / 3.9 - 5.3 cm LV Systolic Diameter PLAX 3.4 cm LV Fractional Shortening PLAX 33.6 % IVS Diastolic Thickness 1.0 cm 0.6 - 1.0 / 0.6 - 0.9 cm LVPW Diastolic Thickness 1.1 cm 0.6 - 1.0 / 0.6 - 0.9 cm RV Internal Dim ED PLAX 3.8 cm Aortic Root Diameter 3.5 cm LA Systolic Diameter LX 3.4 cm 3.0 - 4.0 / 2.7 - 3.8 cm DOPPLER TR Peak Velocity 286.0 cm/s TR Peak Gradient 32.7 mmHg FINDINGS Left Ventricle Normal left ventricular size, without hypertrophy. Borderline global hypokinesis, estimated left ventricular ejection fraction 50%. Grade 2 diastolic dysfunction. Right Ventricle The right ventricle is normal in size and function. Right Atrium The right atrium is mildly dilated Left Atrium The left atrium is mildly dilated. Mitral Valve Morphologically normal mitral valve. Mild mitral valve regurgitation. Aortic Valve Aortic valve sclerosis without stenosis. Mild aortic valve regurgitation. Tricuspid Valve Morphologically normal tricuspid valve. Mild tricuspid valve regurgitation. Tricuspid regurgitation velocities suggest a PAP of 43 mmHg. Pulmonic Valve Morphologically normal pulmonic valve. Mild pulmonary valve regurgitation. Pericardium Normal pericardium without effusion. Aorta Normal ascending aorta dimension. Dewey Hernandez (Electronically Signed) Final Date: 24 November 2016 19:13
[2016-11-24] MEDS: ZIPRASIDONE 20 MG/1 ML VIAL IM PRN (20:21)
[2016-11-25] MEDS: LEVALBUTEROL 1.25 MG/3 ML NEB RESP TX SCH ×6 (02:21→23:32)
[2016-11-25] MEDS: methylPREDNISolone SOD SUC 40 MG/1 ML VIAL IV SCH ×4 (03:17→20:15)
[2016-11-25 05:39] LABS: Calcium 7.9 MG/DL (8.5-10.1); Osmolality,Calculated 287.4 MOS/KG (273-304); Potassium 2.9 MMOL/L (3.5-5.1)
[2016-11-25] MEDS: MEROPENEM 1,000 MG in SODIUM CHLORIDE 0.9% 100 ML IV SCH ×2 (05:46→17:00)
[2016-11-25] MEDS ORDERED: FLUCONAZOLE 150 MG TABLET PO SCH (09:00)
[2016-11-25] MEDS: FAMOTIDINE 20 MG/2 ML VIAL IV SCH ×2 (09:08→20:12)
[2016-11-25] MEDS: ZIPRASIDONE 20 MG/1 ML VIAL IM PRN (09:30)
--- NOTE | 2016-11-25 09:34 | Oncology Progress Note ---
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 Alexander today is back. He has become increasingly confused overnight. 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 He has had a better than average response to treatment already and is back on treatment now, under the supervision of Dr. Roger who will be back on Sunday. The patient had an appointment to see him on Sunday. I had a discussion with the patient's concerning the fact that the patient has done better than average but that it is extremely unusual to cure this disease and long-term prognosis is poor due to the fact that most people develop resistant infections that are primarily resistant because patients have no white cells to fight off infections. In addition, most patients develop bleeding problems as well due to pancytopenia. Gram-negative neutropenic sepsis possibly developing from cellulitis of the right calf He has neutropenic sepsis with 2 blood cultures positive for gram-negative rods and also a urine culture positive for gram-negative rods. MRSA surveillance culture is negative. His cellulitis, which is probably the source of his infection, is not likely to clear without improvement in his myelodysplastic syndrome and leukemia. neutropenia with an ANC of 300. Blood work today includes a white cell count of 600 with an absolute neutrophil count of 300, which is severe neutropenia. anemia with a hemoglobin of 10.3 that is relatively stable. thrombocytopenia: He has thrombocytopenia with platelet count of 22,000. I would plan to transfuse platelets if he bleeds or if his platelet count drops below 15,000. Exam - Constitutional Vitals: Period Temp Pulse Resp BP Sys/Faulkner Pulse Ox Last 24 Hr 97.9 F-99.9 F 87-111 12-29 87-145/55-98 95-100 Results - Labs CBC & BMP: 11/25/16 09:54 11/25/16 04:23 Quality Measures - VTE Contraindication to Pharmacological VTE Prophylaxis: Thrombocytopenia Contraindication to Mechanical VTE Prophylaxis: Local Inflammation
[2016-11-25 10:00] LABS: Hematocrit 27.5 VOL% (42.0-52.0); Hemoglobin 10.3 GM/DL (14.0-18.0); Immature Granulocytes % 3.6 %; Immature Granulocytes Absolute 0.02 #; Lymphocytes # 0.2 10*3/uL (1.4-4.0); Lymphocytes % 34.5 % (21.2-54.2); Mean Corpuscular HGB Conc 37.5 GM/DL (32-36); Mean Corpuscular Hemoglobin 35 PG (27-34); Mean Corpuscular Volume 94.2 FL (87-102); Mean Platelet Volume 12.6 FL (9.6-12.0); Monocytes % 3.6 % (1.7-12.7); Neutrophils # 0.3 10*3/uL (1.4-7.4); Neutrophils % 58.3 % (38.7-73.9); Platelet Count 22 T/CUMM (130-400); Red Blood Count 2.92 MC/CUMM (3.8-5.5); Red Cell Distribution Width 15.1 % (9.3-17.3)
[2016-11-25 10:02] LABS: White Blood Count 0.6 T/CUMM (4-12)
[2016-11-25] MEDS: POTASSIUM CHLORIDE RIDER 10 MEQ in PREMIX 1 EACH IV PRN ×7 (12:10→22:55)
[2016-11-25 12:17] LABS: Hypochromasia 2+; Lymphocytes 60 % (20-55); Microcytosis 2+; Platelet Estimate Decreased; Segmented Neutrophils 40 % (50-85); Total Cells Counted 100
--- NOTE | 2016-11-25 13:07 | Discharge Summary ---
Hospital Course - Time spent with patient Time with patient DS: Greater than 30 minutes (Patient is confused. He does not understand that he is in a hospital intensive care unit.) Diagnosis - Discharge Diagnosis (1) Pancytopenia Status: Acute (2) Sepsis Status: Acute (3) Acute kidney injury Status: Acute (4) Ileostomy in place Status: Acute (5) Cellulitis of right leg Status: Acute (6) GERD (gastroesophageal reflux disease) Status: Acute (7) COPD (chronic obstructive pulmonary disease) Status: Acute Discharge Plan - Discharge Medications No Action Aspirin [Ecotrin] 81 mg PO MOWEFR Montelukast Tab [Singulair Tab] 10 mg PO BEDTIME Potassium Chloride 10 meq PO DAILY Gabapentin 600 mg PO BID predniSONE TAB [PredniSONE] 10 mg PO DAILY #10 tablet Omeprazole [Omeprazole] 20 mg PO Q3DAY Gabapentin Cap/Tab [Neurontin Cap/Tab] 200 mg PO BEDTIME Nitrofurantoin Macrocrystal [Nitrofurantoin] 100 mg PO BID amLODIPine [Norvasc] 5 mg PO DAILY Meloxicam [Meloxicam] 15 mg PO DAILY - Follow Up or Referral - Forms/Instructions Exam - Constitutional Vitals: Period Temp Pulse Resp BP Sys/Faulkner Pulse Ox Last 24 Hr 97.9 F-99.5 F 87-111 12-29 97-145/55-98 95-100 General appearance: normal weight, mild distress - Head Head exam: Present: normal inspection - Eye Eye exam: Present: EOMI Pupils: Present: SHAZIA - Neck Neck exam: Absent: meningismus, tenderness Discharge Results Procedures and tests throughout hospitalization: Pending Orders 11/23/16 11:03 Blood Culture Stat Urine Culture Stat 11/25/16 04:24 Blood Culture IN AM 11/25/16 12:33 Blood Culture Stat 11/26/16 04:00 BMP [Basic Metabolic Panel] IN AM Comp Blood Count Auto Diff IN AM Comprehensive Metabolic Panel IN AM 11/27/16 04:00 Comp Blood Count Auto Diff IN AM Comprehensive Metabolic Panel IN AM 11/28/16 04:00 Comp Blood Count Auto Diff IN AM Comprehensive Metabolic Panel IN AM 11/29/16 04:00 Comp Blood Count Auto Diff IN AM Comprehensive Metabolic Panel IN AM 11/30/16 04:00 Comp Blood Count Auto Diff IN AM Comprehensive Metabolic Panel IN AM 12/01/16 04:00 Comp Blood Count Auto Diff IN AM Comprehensive Metabolic Panel IN AM Labs on day of discharge: Labs from last 24 hours 11/25/16 11/25/16 09:54 04:23 WBC 0.6 L* D RBC 2.92 L Hgb 10.3 L Hct 27.5 L MCV 94.2 MCH 35 H MCHC 37.5 H RDW 15.1 Plt Count 22 L* D MPV 12.6 H Neut % (Auto) 58.3 Lymph % (Auto) 34.5 [place] % (Auto) 3.6 Eos % (Auto) 0.0 Baso % (Auto) 0.0 Neut # (Auto) 0.3 L Lymph # (Auto) 0.2 L [place] # (Auto) 0.0 L Eos # (Auto) 0.0 Baso # (Auto) 0.0 Total Counted 100 Immature Gran % 3.6 Nucleated RBC % 0.0 Immature Gran # 0.02 Segmented Neutrophils 40 L Lymphocytes 60 H Nucleated RBCs # 0.00 Platelet Estimate Decreased Hypochromasia 2+ Microcytosis 2+ Sodium 140 Potassium 2.9 L Chloride 103 Carbon Dioxide 26 Anion Gap 13.9 BUN 35 H Creatinine 1.40 H GFR Calculation 61 BUN/Creatinine Ratio 25.00 H Glucose 125 H Calculated Osmolality 287.4 Calcium 7.9 L Preliminary micro results at discharge 11/23/16 11:03 Blood Culture - Preliminary Blood Gram Negative Rods Gram Positive Cocci 11/23/16 11:03 Urine Culture - Preliminary Urine,Suprapubic Gram Negative Rods Gram Negative Rods#2 11/23/16 11:03 Blood Culture - Preliminary Blood Gram Negative Rods DS: Provider Date of admission: 11/23/16 13:38 Primary care physician: Delilah Quintana M.D. Attending physician on admission: Mihir John MD Consults: 11/23/16 14:01 Consult to Physician [CONS] Routine Comment: Critical pancytopenia Consulting Provider: Irineo Ugarte Consulting Provider Notified: Yes When should Consulting Provider be notified: Now Consult to Specialist Group: Oncology When should Consulting Provider be notified: Now Person Notified: JAROD Date Notified: 11/23/16 Time Notified: 14:33 Consult to Physician [CONS] Routine Comment: Febrile neutropenia Consulting Provider: Geri Schilling Consulting Provider Notified: Yes When should Consulting Provider be notified: Now Consult to Specialist Group: Infectious Disease When should Consulting Provider be notified: Now Person Notified: césar Date Notified: 11/23/16 Time Notified: 14:28 11/23/16 16:34 Consult to Pharmacy [CONS] Routine Reason for Pharmacy Consult: Dose/Manage Vancomycin Discharging clinician: Clement Villatoro III
--- NOTE | 2016-11-25 13:17 | Hospitalist Progress Note ---
Assessment and Plan (1) Pancytopenia Problem details: Multifactorial including myelodysplastic syndrome (confirmed by bone marrow biopsy December 2015). 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 Patient remains severely neutropenic. his absolute neutrophil count measures approximately 350. Platelet count remains within critical range at 22,000. No spontaneous bleeding noticed. Status: Acute Current Visit: Yes (2) Sepsis Problem details: 11/23/2016 blood cultures growing gram-negative rods and gram- positive cocci 11/23/2016 second set blood cultures growing gram-negative rods 11/23/2016 ileostomy urine culture growing 2 different gram-negative rods 11/23/2016 nasal swab MRSA negative Repeat blood cultures ordered today Patient is receiving empiric meropenem and vancomycin day #2 I appreciate review and input from infectious disease treasury management sales consultant Status: Acute Current Visit: Yes Qualifiers: Sepsis type: sepsis due to unspecified organism Qualified Code(s): A41.9 - Sepsis, unspecified organism (3) Acute kidney injury Problem details: Possibly related to hypotensive episode related to sepsis and septic shock. Continue IV hydration to improve sepsis and renal perfusion. Monitor daily BUN and creatinine. Status: Acute Current Visit: Yes (4) Ileostomy in place Problem details: Increases patient's risk for recurrent infections. Patient has a history of bladder cancer managed with cystectomy and ileal conduit. He reportedly completed chemotherapy completed initial course 3 months ago but restarted the beginning of last month. It is unclear if a second cancer diagnosis has been confirmed or if patient has a recurrence of known bladder cancer. Oncologist consulted. Status: Acute Current Visit: Yes (5) Cellulitis of right leg Problem details: Ruptured bullous lesion along proximal calf. Lower right calf bullous lesion intact still fluid-filled. Status: Acute Current Visit: Yes (6) GERD (gastroesophageal reflux disease) Problem details: Managed with antireflux behaviors/maneuvers and PPI therapy. Status: Acute Current Visit: Yes (7) COPD (chronic obstructive pulmonary disease) Problem details: Without acute exacerbation. No history of tobacco use. Beta- 2 agonists inhaler therapy as required. Bedside incentive spirometry with cough and deep breathing exercises reviewed. Chest x-ray does not reveal acute cardiopulmonary pathology today. Status: Acute Current Visit: Yes Hospitalist: Subjective Interval history: Patient has become confused, and agitated. He requires wrist restraints to avoid loss of IV access and to prevent patient's attempt to climb out of bed. Exam - Constitutional Vitals: Period Temp Pulse Resp BP Sys/Faulkner Pulse Ox Last 24 Hr 97.9 F-99.5 F 87-111 12-29 97-145/55-98 95-100 General appearance: normal weight, mild distress - Head Head exam: Present: atraumatic - Eye Eye exam: Present: EOMI - Neck Neck exam: Present: normal inspection. Absent: meningismus - Respiratory Respiratory exam: Present: clear to auscultation bilaterally. Absent: accessory muscle use, rales, rhonchi - Cardiovascular Cardiovascular exam: Present: regular rate and rhythm. Absent: carotid bruit - GI/Abdominal GI/Abdominal exam: Present: normal bowel sounds, soft. Absent: mass, tenderness , rebound - Extremities Exam Extremities exam: Present: normal inspection, edema. Absent: calf tenderness - Neurological Exam Neurological exam: Present: alert. Absent: oriented X3 - Psychiatric Psychiatric exam: Present: agitated - Skin Skin exam: Present: normal color, warm, dry, rash (Right lower leg with bullous lesion) Results - Labs CBC & BMP: 11/25/16 09:54 11/25/16 04:23 Quality Measures - VTE Contraindication to Pharmacological VTE Prophylaxis: Thrombocytopenia Contraindication to Mechanical VTE Prophylaxis: Local Inflammation
[2016-11-25] MEDS: VANCOMYCIN INJ 1,500 MG in SODIUM CHLORIDE 0.9% 500 ML IV SCH (17:30)
[2016-11-25] MEDS: CLORAZEPATE 7.5 MG TABLET PO PRN (20:12)
[2016-11-25] MEDS: DILTIAZEM INJ 100 MG in SODIUM CHLORIDE 0.9% 100 ML IV SCH (20:26)
[2016-11-26] MEDS: LEVALBUTEROL 1.25 MG/3 ML NEB RESP TX SCH ×6 (02:19→23:33)
[2016-11-26] MEDS: ZIPRASIDONE 20 MG/1 ML VIAL IM PRN (02:30)
[2016-11-26] MEDS: methylPREDNISolone SOD SUC 40 MG/1 ML VIAL IV SCH ×4 (02:32→19:54)
[2016-11-26] MEDS: MEROPENEM 1,000 MG in SODIUM CHLORIDE 0.9% 100 ML IV SCH ×2 (05:41→17:00)
[2016-11-26 06:37] LABS: Hematocrit 28.1 VOL% (42.0-52.0); Hemoglobin 10.2 GM/DL (14.0-18.0); Immature Granulocytes Absolute 0.01 #; Lymphocytes # 0.3 10*3/uL (1.4-4.0); Lymphocytes % 29.9 % (21.2-54.2); Mean Corpuscular HGB Conc 36.3 GM/DL (32-36); Mean Corpuscular Hemoglobin 35 PG (27-34); Mean Corpuscular Volume 95.3 FL (87-102); Monocytes % 3.1 % (1.7-12.7); Neutrophils # 0.6 10*3/uL (1.4-7.4); Red Blood Count 2.95 MC/CUMM (3.8-5.5); Red Cell Distribution Width 16.1 % (9.3-17.3)
[2016-11-26 07:05] LABS: Albumin 2.4 G/DL (3.4-5.0); Osmolality,Calculated 291.3 MOS/KG (273-304); Platelet Count 16 T/CUMM (130-400); Potassium 3.7 MMOL/L (3.5-5.1)
[2016-11-26 08:04] LABS: Hypochromasia 2+; Lymphocytes 45 % (20-55); Microcytosis 2+; Platelet Estimate Decreased; Segmented Neutrophils 55 % (50-85); Total Cells Counted 100
[2016-11-26] MEDS: FAMOTIDINE 20 MG/2 ML VIAL IV SCH ×2 (09:10→19:51)
--- NOTE | 2016-11-26 09:45 | Hospitalist Progress Note ---
Assessment and Plan - Time spent with patient Time spent with patient: Greater than 30 minutes (1) Sepsis Problem details: 11/23/2016 blood cultures growing gram-negative rods and gram- positive cocci 11/23/2016 second set blood cultures growing gram-negative rods 11/23/2016 ileostomy urine culture growing 2 different gram-negative rods 11/23/2016 nasal swab MRSA negative Repeat blood cultures ordered today Patient is receiving empiric meropenem and vancomycin day #2 I appreciate review and input from infectious disease business travel consultant Status: Acute Assessment and plan: Continue VCN and Merrem, consult ID in am. Current Visit: Yes Qualifiers: Sepsis type: sepsis due to unspecified organism Qualified Code(s): A41.9 - Sepsis, unspecified organism (2) Pancytopenia Problem details: Multifactorial including myelodysplastic syndrome (confirmed by bone marrow biopsy December 2015). 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 Patient remains severely neutropenic. his absolute neutrophil count measures approximately 350. Platelet count remains within critical range at 22,000. No spontaneous bleeding noticed. Status: Acute Assessment and plan: Hem/Onc f/u. Transfuse 1u PRBC today. Current Visit: Yes (3) Cellulitis of right leg Problem details: Ruptured bullous lesion along proximal calf. Lower right calf bullous lesion intact still fluid-filled. Status: Acute Current Visit: Yes (4) Acute kidney injury Problem details: Possibly related to hypotensive episode related to sepsis and septic shock. Continue IV hydration to improve sepsis and renal perfusion. Monitor daily BUN and creatinine. Status: Acute Assessment and plan: Cr 1.o today. ERICK resolved. Current Visit: Yes (5) GERD (gastroesophageal reflux disease) Problem details: Managed with antireflux behaviors/maneuvers and PPI therapy. Status: Acute Current Visit: Yes (6) COPD (chronic obstructive pulmonary disease) Problem details: Without acute exacerbation. No history of tobacco use. Beta- 2 agonists inhaler therapy as required. Bedside incentive spirometry with cough and deep breathing exercises reviewed. Chest x-ray does not reveal acute cardiopulmonary pathology today. Status: Acute Current Visit: Yes Hospitalist: Subjective Interval history: No overnight acute event. Cellulitis on right leg calf area. Pancytopenia with MDS conversion to acute leukemia followed by Hem/Onc. Plt 16 today. No fever or diarrhea. Exam - Constitutional Vitals: Period Temp Pulse Resp BP Sys/Faulkner Pulse Ox Last 24 Hr 97 F-98 F 69-106 14-29 82-146/51-98 93-100 Exam: GENERAL: Lying in bed supine. Sleeping HEENT: Pupils equally round and reactive to light, conjunctivae clear. TMs rotiz and translucent. Oropharynx pink, with moist mucous membranes. Normal lips, teeth and gums. NECK: Supple without mass. HEART: RRR, no murmur. CHEST: Normal shape, good air movement, no retractions. CV: RRR, no murmurs, 2+ peripheral pulses LUNGS: Clear to auscultation; no rales, rhonchi, or wheezes. ABDOMEN: Soft, nontender, and no hepatosplenomegaly. SKIN: No rash or edema. LYMPH: No anterior or posterior cervical, or supraclavicular lymphadenopathy. NEURO: No gross motor deficits noted. Results - Labs CBC & BMP: 11/26/16 05:13 11/26/16 05:13 Quality Measures - VTE Contraindication to Pharmacological VTE Prophylaxis: Thrombocytopenia Contraindication to Mechanical VTE Prophylaxis: Local Inflammation
--- NOTE | 2016-11-26 12:13 | Oncology Progress Note ---
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 Alexander today is back. He has become increasingly confused overnight. 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 He has had a better than average response to treatment already and is back on treatment now, under the supervision of Dr. Roger who will be back on Sunday. The patient had an appointment to see him on Sunday. I had a discussion with the patient's yesterday concerning the fact that the patient has done better than average but that it is extremely unusual to cure this disease and long-term prognosis is poor due to the fact that most people develop resistant infections that are primarily resistant because patients have no white cells to fight off infections. In addition, most patients develop bleeding problems as well due to pancytopenia. Gram-negative neutropenic sepsis possibly developing from cellulitis of the right calf He has neutropenic sepsis with 2 blood cultures positive for Acinetobacter and also a urine culture positive for E. coli and Proteus vulgaris. MRSA surveillance culture is negative. His cellulitis, which is probably the source of his infection, is not likely to clear without improvement in his myelodysplastic syndrome and leukemia. However, I examined the right calf today during wound change and it appears to be less acute and less serious than it was a couple of days ago. neutropenia with an ANC of 300. Blood work today includes a white cell count of 1000 with an absolute neutrophil count of 600, which is severe neutropenia. anemia with a hemoglobin of 10.2 that is relatively stable. thrombocytopenia: He has thrombocytopenia with platelet count of 16,000. I would plan to transfuse platelets if he bleeds or if his platelet count drops below 15,000. Confusion:He was confused yesterday. This has modestly improved but he remains confused. Exam - Constitutional Vitals: Period Temp Pulse Resp BP Sys/Faulkner Pulse Ox Last 24 Hr 97.4 F-98 F 69-106 14-29 82-146/51-89 93-100 Results - Labs CBC & BMP: 11/26/16 05:13 11/26/16 05:13 Quality Measures - VTE Contraindication to Pharmacological VTE Prophylaxis: Thrombocytopenia Contraindication to Mechanical VTE Prophylaxis: Local Inflammation
[2016-11-26] MEDS: DILTIAZEM INJ 100 MG in SODIUM CHLORIDE 0.9% 100 ML IV SCH (19:37)
[2016-11-26] MEDS: VANCOMYCIN INJ 1,500 MG in SODIUM CHLORIDE 0.9% 500 ML IV SCH (19:50)
[2016-11-26] MEDS: CIPROFLOXACIN INJ 400 MG in PREMIX 1 EACH IV SCH (22:46)
[2016-11-27] MEDS: LEVALBUTEROL 1.25 MG/3 ML NEB RESP TX SCH ×5 (03:29→20:13)
[2016-11-27] MEDS: methylPREDNISolone SOD SUC 40 MG/1 ML VIAL IV SCH (03:30)
[2016-11-27] MEDS: MEROPENEM 1,000 MG in SODIUM CHLORIDE 0.9% 100 ML IV SCH (04:43)
[2016-11-27 05:13] LABS: Basophils % 0.6 % (0.0-0.8); Hemoglobin 9.7 GM/DL (14.0-18.0); Immature Granulocytes % 0.6 %; Immature Granulocytes Absolute 0.01 #; Lymphocytes # 0.4 10*3/uL (1.4-4.0); Lymphocytes % 20.6 % (21.2-54.2); Mean Corpuscular HGB Conc 35.9 GM/DL (32-36); Mean Corpuscular Hemoglobin 34 PG (27-34); Mean Corpuscular Volume 95.4 FL (87-102); Mean Platelet Volume 10.9 FL (9.6-12.0); Monocytes # 0.1 10*3/uL (0.11-0.8); Monocytes % 3.4 % (1.7-12.7); Neutrophils # 1.3 10*3/uL (1.4-7.4); Neutrophils % 74.8 % (38.7-73.9); Red Blood Count 2.83 MC/CUMM (3.8-5.5); Red Cell Distribution Width 16.5 % (9.3-17.3); White Blood Count 1.8 T/CUMM (4-12)
[2016-11-27 05:22] LABS: Platelet Count 23 T/CUMM (130-400)
[2016-11-27 05:51] LABS: Albumin 2.2 G/DL (3.4-5.0); Bilirubin,Total 1.2 MG/DL (0.2-1.0); Calcium 7.6 MG/DL (8.5-10.1); Osmolality,Calculated 296.1 MOS/KG (273-304); Potassium 3.6 MMOL/L (3.5-5.1); Total Protein 5.6 G/DL (6.4-8.3)
[2016-11-27] MEDS: POTASSIUM CHLORIDE RIDER 10 MEQ in PREMIX 1 EACH IV PRN ×2 (06:30→08:30)
[2016-11-27 06:31] LABS: Band Neutrophils 1 % (0-10); Lymphocytes 24 % (20-55); Segmented Neutrophils 73 % (50-85); Total Cells Counted 100
[2016-11-27 06:32] LABS: Hypochromasia 1+; Microcytosis 1+; Ovalocytes Few; Platelet Estimate Decreased
--- NOTE | 2016-11-27 07:54 | Oncology Progress Note ---
Assessment and Plan (1) AML (acute myeloblastic leukemia) Status: Acute Current Visit: Yes (2) COPD (chronic obstructive pulmonary disease) Problem details: Without acute exacerbation. No history of tobacco use. Beta- 2 agonists inhaler therapy as required. Bedside incentive spirometry with cough and deep breathing exercises reviewed. Chest x-ray does not reveal acute cardiopulmonary pathology today. Status: Acute Current Visit: Yes (3) Cellulitis Status: Acute Current Visit: Yes (4) Ileostomy in place Problem details: Increases patient's risk for recurrent infections. Patient has a history of bladder cancer managed with cystectomy and ileal conduit. He reportedly completed chemotherapy completed initial course 3 months ago but restarted the beginning of last month. It is unclear if a second cancer diagnosis has been confirmed or if patient has a recurrence of known bladder cancer. Oncologist consulted. Status: Acute Current Visit: Yes (5) Sepsis Status: Acute Current Visit: Yes (6) Thrombocytopenia Status: Acute Current Visit: No (7) Leukopenia Status: Chronic Current Visit: No (8) Myelodysplasia (myelodysplastic syndrome) Status: Chronic Current Visit: No Oncology Subjective PN Interval history: Mr. Alexander is an 81-year-old white male with high-grade myelodysplasia that is converted to acute myelogenous leukemia that we are managing with monthly Dacogen therapy hoping to palliate his leukemia symptoms as long as possible. We initiated treatment in the latter part of 2015 he actually had a very remarkable response. He was off any kind of treatment for approximately 3-4 months throughout the spring 2016. We reinitiated Dacogen last month when his blood counts began to worsen. He presented to the emergency room on November 23. His symptoms were fever and confusion. He was begun on broad-spectrum antibiotics. His blood cultures have grown out Acinetobacter and 1 culture has gram-positive cocci that was not fully speciated. His urine culture also showed E. coli and Proteus. All gram-negative rods are sensitive to Cipro. I am uncertain how to interpret the gram-positive cocci since it was never fully speciated. He has an area of cellulitis over his right calf. He remains severely neutropenic and thrombocytopenic. His white blood cell count is around his usual baseline. His platelet count usually runs around 40,000. On my exam today he was back to his normal self. He does not appear confused at all. I think he is safe to be transferred from the ICU to a regular bed and be best served on 4 E. We can discontinue Merrem since Cipro covers all the gram-negative rods. Infectious disease is following him and may want to want make further adjustments to his antibiotics. I will leave him on vancomycin for now since he has this right calf cellulitis and this questionable gram- positive cocci in 1 of his blood cultures. I will follow blood cultures have been no growth. He is not bleeding so I do not see a reason to transfuse platelets today. I anticipate he will still be in the hospital for at least 2- 3 more days if not longer. He is very anxious about getting out of the hospital and going back to playing golf. Exam - Constitutional Vitals: Period Temp Pulse Resp BP Sys/Faulkner Pulse Ox Last 24 Hr 97 F-98.1 F 74-103 13-24 99-143/58-97 91-100 General appearance: normal weight, no acute distress - Head Head Exam: Present: normocephalic, atraumatic - Eye Eye Exam: Present: EOMI Pupils: Present: PERRL - ENT ENT exam: Present: normal exam, normal oropharynx - Neck Neck exam: Absent: lymphadenopathy, thyromegaly - Respiratory Respiratory exam: Present: CTAB. Absent: wheezes - Cardiovascular Cardiovascular exam: Present: RRR. Absent: JVD - GI/Abdominal GI/Abdominal exam: Present: soft. Absent: ascites, distended, mass - Neurological Exam Neurological exam: Present: alert, oriented X3 - Psychiatric Psychiatric exam: Present: normal affect, normal mood - Skin Skin exam: Present: warm, dry Results - Labs CBC & BMP: 11/27/16 04:08 11/27/16 04:08 Lab Results: I have reviewed the past 24 hour labs Quality Measures - VTE Contraindication to Pharmacological VTE Prophylaxis: Thrombocytopenia Contraindication to Mechanical VTE Prophylaxis: Local Inflammation
[2016-11-27] MEDS: FAMOTIDINE 20 MG/2 ML VIAL IV SCH ×2 (09:46→22:22)
--- NOTE | 2016-11-27 11:01 | Hospitalist Progress Note ---
Assessment and Plan - Time spent with patient Time spent with patient: Greater than 30 minutes (1) UTI (urinary tract infection) Status: Acute Assessment and plan: Continue IV abx. On Cipro and vancomycin. Current Visit: Yes Qualifiers: Urinary tract infection type: acute cystitis Hematuria presence: without hematuria Qualified Code(s): N30.00 - Acute cystitis without hematuria (2) Febrile neutropenia Status: Acute Assessment and plan: - Time spent with patient Time spent with patient: Greater than 30 minutes (1) Sepsis Problem details: 11/23/2016 blood cultures growing gram-negative rods and gram- positive cocci 11/23/2016 second set blood cultures growing gram-negative rods 11/23/2016 ileostomy urine culture growing 2 different gram-negative rods 11/23/2016 nasal swab MRSA negative Repeat blood cultures ordered today Patient is receiving empiric meropenem and vancomycin day #3. I have added Cipro. Status: Acute Assessment and plan: Continue VCN and Merrem, consult ID in am. Current Visit: Yes Qualifiers: Sepsis type: sepsis due to unspecified organism Qualified Code(s): A41.9 - Sepsis, unspecified organism (2) Pancytopenia Problem details: Multifactorial including myelodysplastic syndrome (confirmed by bone marrow biopsy December 2015). 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 Patient remains severely neutropenic. his absolute neutrophil count measures approximately 350. Platelet count remains within critical range at 22,000. No spontaneous bleeding noticed. Status: Acute Assessment and plan: Hem/Onc f/u. Transfuse 1u PRBC today. Current Visit: Yes (3) Cellulitis of right leg Problem details: Ruptured bullous lesion along proximal calf. Lower right calf bullous lesion intact still fluid-filled. Status: Acute Current Visit: Yes (4) Acute kidney injury Problem details: Possibly related to hypotensive episode related to sepsis and septic shock. Continue IV hydration to improve sepsis and renal perfusion. Monitor daily BUN and creatinine. Status: Acute Assessment and plan: Cr 1.o today. ERICK resolved. Current Visit: Yes (5) GERD (gastroesophageal reflux disease) Problem details: Managed with antireflux behaviors/maneuvers and PPI therapy. Status: Acute Current Visit: Yes (6) COPD (chronic obstructive pulmonary disease) Problem details: Without acute exacerbation. No history of tobacco use. Beta- 2 agonists inhaler therapy as required. Bedside incentive spirometry with cough and deep breathing exercises reviewed. Chest x-ray does not reveal acute cardiopulmonary pathology today. Status: Acute Current Visit: Yes Current Visit: Yes (3) Sepsis Problem details: 11/23/2016 blood cultures growing gram-negative rods and gram- positive cocci 11/23/2016 second set blood cultures growing gram-negative rods 11/23/2016 ileostomy urine culture growing 2 different gram-negative rods 11/23/2016 nasal swab MRSA negative Repeat blood cultures ordered today Patient is receiving empiric meropenem and vancomycin day #2 I appreciate review and input from infectious disease political consultant Status: Acute Current Visit: Yes Qualifiers: Sepsis type: sepsis due to unspecified organism Qualified Code(s): A41.9 - Sepsis, unspecified organism (4) Pancytopenia Problem details: Multifactorial including myelodysplastic syndrome (confirmed by bone marrow biopsy December 2015). 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 Patient remains severely neutropenic. his absolute neutrophil count measures approximately 350. Platelet count remains within critical range at 22,000. No spontaneous bleeding noticed. Status: Acute Current Visit: Yes (5) Ileostomy in place Problem details: Increases patient's risk for recurrent infections. Patient has a history of bladder cancer managed with cystectomy and ileal conduit. He reportedly completed chemotherapy completed initial course 3 months ago but restarted the beginning of last month. It is unclear if a second cancer diagnosis has been confirmed or if patient has a recurrence of known bladder cancer. Oncologist consulted. Status: Acute Current Visit: Yes (6) Cellulitis of right leg Problem details: Ruptured bullous lesion along proximal calf. Lower right calf bullous lesion intact still fluid-filled. Status: Acute Current Visit: Yes (7) GERD (gastroesophageal reflux disease) Problem details: Managed with antireflux behaviors/maneuvers and PPI therapy. Status: Acute Current Visit: Yes (8) COPD (chronic obstructive pulmonary disease) Problem details: Without acute exacerbation. No history of tobacco use. Beta- 2 agonists inhaler therapy as required. Bedside incentive spirometry with cough and deep breathing exercises reviewed. Chest x-ray does not reveal acute cardiopulmonary pathology today. Status: Acute Current Visit: Yes (9) AML (acute myeloblastic leukemia) Status: Acute Current Visit: Yes Hospitalist: Subjective Interval history: Patient seen and examined. No acute events overnight. Case discussed with nursing staff. Labs reviewed. The patient looks and feels better today. Dr. Moreland notes were reviewed. Patient will be transferred up to the floor today. Examination of his right lower extremity shows continued cellulitic changes with redness erythema and warmth. He has an area of skin sloughing on the posterior aspect of the calf. I have ordered wound care consult and surgery consult for evaluation of possible debridement. Exam - Constitutional Vitals: Period Temp Pulse Resp BP Sys/Faulkner Pulse Ox Last 24 Hr 97 F-98.1 F 80-103 13-24 99-143/58-97 91-100 Exam: Constitutional System: No redness and erythema noted in the right distress. No tremulousness. Head: Normocephalic, atraumatic. Ears, Nose and Throat System: No pain or tenderness. No epistaxis or discharge Eyes System: Pupils equal, round, and reactive. Extraocular muscles intact. Neck: Supple, without adenopathy, No jugular venous distention. No thyromegaly, neck mass, or prior surgery apparent. Respiratory System: Chest clear to auscultation. Cardiovascular System: Heart with regular rate and rhythm. No murmur. GI System: Abdomen soft, nontender. Normo active bowel sounds present. Musculoskeletal System: limbs with no pedal edema. Full distal pulses. Lower extremity. Skin breakdown and sloughing noted in the posterior calf area. Minimal drainage from the wound. Neurological System: No discernable sensory deficit. No aphasia Psychiatric System: Conversation is rational Results - Labs CBC & BMP: 11/27/16 04:08 11/27/16 04:08 Lab Results: I have reviewed the past 24 hour labs Quality Measures - VTE Contraindication to Pharmacological VTE Prophylaxis: Thrombocytopenia Contraindication to Mechanical VTE Prophylaxis: Local Inflammation
--- NOTE | 2016-11-27 11:19 | Infectious Disease Progress ---
Assessment and Plan (1) Cellulitis Status: Acute Assessment and plan: Cellulitis posterior aspect of the right leg -I think overall it has improved with terms of the induration and erythema, however the area of discoloration is larger than several days ago. Recommendations: I would continue the vancomycin for little longer since I am not sure that it is Acinetobacter that caused the cellulitis. r Current Visit: Yes (2) Sepsis Status: Acute Assessment and plan: Patient had septicemia due to Acinetobacter. Clinically he is improved on antibiotic therapy. He was getting meropenem but that was replaced with ciprofloxacin yesterday and I agree with this. He had staph capitis in his blood which I suspect was a contaminant. Patient will however remain on vancomycin because of the cellulitis. Current Visit: Yes (3) Acute renal disease Status: Acute Assessment and plan: Most likely due to sepsis with hypotension. Renal function better. Continue to watch closely on vancomycin. Current Visit: No (4) Pancytopenia, acquired Status: Chronic Assessment and plan: Reportedly due to myelodysplastic syndrome. Current Visit: No (5) Febrile neutropenia Status: Acute Assessment and plan: Fever resolved and repeat blood cultures negative today. Current Visit: Yes Infectious Disease - PN: Subj Interval history: Patient generally doing much better, says he feels close to his baseline no more confusion. He has not had fever. Right leg not as sore but he still has discomfort there. Infectious Disease Exam (PN) - Constitutional Vitals: Temp Pulse Resp BP Pulse Ox 97.7 F 94 H 24 132/71 100 11/27/16 08:00 11/27/16 11:00 11/27/16 11:00 11/27/16 10:00 11/27/16 11:00 General appearance: normal weight, no acute distress Exam: General appearance: Alert and talkative, nontoxic-appearing - Eye Eye exam: Present: EOMI. no icterus Pupils: Present: SHAZIA - ENT ENT exam: no oral exudates - Respiratory Respiratory exam: vesicular BS, no crepitations or wheezes - Cardiovascular Cardiovascular exam: regular rate and rhythm, no murmurs - GI/Abdominal GI/Abdominal exam: normal bowel sounds, soft, non-tender, no organomegaly or mass - Extremities Exam Extremities exam: Posterior right leg no longer angry looking but there is a large area of discoloration, with peripheral bruising and vesiculation, new area of vesiculation to the anterior medial aspect, overall there is less induration to the affected areas, there is more edema to the leg in general - Skin Skin exam: no rash Results - Labs CBC & BMP: 11/27/16 04:08 11/27/16 04:08 Lab Results: I have reviewed the past 24 hour labs (Acinetobacter Juli from 2 of 2 sets of blood cultures, 1 of 2 sets had staph capitis, repeat blood cultures negative to date) Quality Measures - VTE Contraindication to Pharmacological VTE Prophylaxis: Thrombocytopenia Contraindication to Mechanical VTE Prophylaxis: Local Inflammation
[2016-11-27] MEDS: CIPROFLOXACIN INJ 400 MG in PREMIX 1 EACH IV SCH (11:50)
[2016-11-27] MEDS: VANCOMYCIN INJ 1,500 MG in SODIUM CHLORIDE 0.9% 500 ML IV SCH (14:54)
--- NOTE | 2016-11-27 15:40 | General Surgery Consult Note ---
Assessment and Plan - Time spent with patient Time spent with patient: Greater than 30 minutes (1) Myelodysplasia (myelodysplastic syndrome) Status: Chronic Assessment and plan: Mr. Alexander is a very pleasant 81-year-old white male with history of bladder cancer and acute myelogenous leukemia. Patient was septic with positive blood cultures with gram-negative rods. Dr. Madsen from infectious disease is following along with oncology. Patient is currently on Cipro and vancomycin. Patient has an intense erythema with induration and bullous formation with some that have opened and drained and peeled. Did not see any signs of fluctuance or area that needs to be opened at this time. Wound orders have been written and agree with continued antibiotics per Dr. Madsen. Dr. Lott will see and examine patient and further recommendations to follow. Current Visit: No (2) Pancytopenia, acquired Status: Chronic Current Visit: No (3) Sepsis Status: Acute Current Visit: Yes (4) Cellulitis Status: Acute Current Visit: Yes (5) Bladder cancer Status: Chronic Current Visit: Yes (6) Febrile neutropenia Status: Acute Current Visit: Yes History of Present Illness Chief complaint: Right leg pain History of present illness: Mr. Alexander is a 81 year old white male with history of bladder cancer and leukemia admitted by the hospitalist service on 11/23/2016 with altered mental status due to sepsis and cellulitis to the right lower extremity. Patient has febrile neutropenia, pancytopenia, and acute renal disease. He is being followed by oncology and infectious disease. According to Dr. Madsen's note it looks like the cellulitis on the posterior aspect of the leg has overall improved in terms of induration and erythema however the area is larger than several days ago. Patient is on vancomycin and Cipro IV. Patient states his leg hurts to touch and hurts when he walks. He has normal motor function of his ankle foot knee along with normal sensation. He denies headache, confusion , difficulty swallowing, chest pain, shortness of breath, abdominal pain, or left lower extremity edema. Upon exam he does have erythema to the posterior aspect of the leg and a small portion to the anterior. This is streaked up the medial thigh about midway since this morning per nursing. He does have some blister formation with some that have drained and the skin is peeling off. The skin underneath is clean and without purulence. He does have some induration to the calf but no fluctuance noticed. He does have some mild ankle edema with good palpable pulses. Patient is afebrile and his vital signs are stable. WBCs today are 1.8 with 23 platelets and his creatinine is normal. Dr. Lott has been consulted to evaluate. Home Medications Medication Instructions Recorded Confirmed Type Aspirin [Ecotrin] 81 mg PO MOWEFR 12/06/14 11/23/16 History Gabapentin 600 mg PO BID 12/06/14 11/23/16 History Montelukast Tab [Singulair Tab] 10 mg PO BEDTIME 12/06/14 11/23/16 History Potassium Chloride 10 meq PO DAILY 12/06/14 11/23/16 History predniSONE TAB [PredniSONE] 10 mg PO DAILY #10 tablet 12/10/14 11/23/16 Rx Gabapentin Cap/Tab [Neurontin 200 mg PO BEDTIME 11/23/16 11/23/16 History Cap/Tab] Meloxicam [Meloxicam] 15 mg PO DAILY 11/23/16 11/23/16 History Nitrofurantoin Macrocrystal 100 mg PO BID 11/23/16 11/23/16 History [Nitrofurantoin] Omeprazole [Omeprazole] 20 mg PO Q3DAY 11/23/16 11/23/16 History amLODIPine [Norvasc] 5 mg PO DAILY 11/23/16 11/23/16 History Allergies Allergy/AdvReac Type Severity Reaction Status Date / Time No Known Allergies Allergy Verified 03/11/16 15:24 Medical,Surgical,& Family Hx - Medical History Cardio: History of: Aneurysm (Aortic (1967)) Neurology: History of: Vertigo HEENT: History of: Ear Problem Rheumatology: History of;: Rheumatoid Arthritis Respiratory: History of: Respiratory Problems (non-specific per family) Genitourinary: History of: Genitourinary Cancer (Bladder Cancer (2011)), Problems (status post cystectomy for bladder cancer) Gastrointestinal: History of: GERD Hematology: History of: Blood Disorders (myelodysplastic syndrome) - Surgical History Thoracic Surgeries: Patient denies;: Organ Transplant HEENT Surgeries: Surgical HX of: Eye Surgery (Cataract Surgery), Tonsilectomy & Adenoidectomy (removed at age 6) Abdominal Surgeries: Surgical HX of: Appendectomy, Cholecystectomy, Colonoscopy , Hernia Repair Reproductive Surgeries: Surgical HX of;: Genitourinary Surgery (urostomy (2012)) , Prostate Surgery (removed (2012)) - Family History Family History: Denies;: Family Hypertension - Social History Smoking Status: Never smoker Frequency of Alcohol Use: Rarely Type of Drug Use: None Marital Status: Lives With:: Spouse Functional capacity: independent ambulation Review of systems: A complete 10 system review of systems was obtained and pertinent positives and negatives per HPI Exam - Constitutional Vitals: Period Temp Pulse Resp BP Sys/Faulkner Pulse Ox Last 24 Hr 97 F-98 F 80-102 13-24 99-143/38-96 91-100 Exam: Constitutional System: No distress. No tremulousness. Head: Normocephalic, atraumatic. Ears, Nose and Throat System: No evidence of Otitis or Mastoiditis. No epistaxis or discharge Eyes System: Pupils equal, round, and reactive. Extraocular muscles intact. Neck: Supple, without adenopathy, No jugular venous distention. No thyromegaly, neck mass, or prior surgery apparent. Respiratory System: Chest clear to auscultation. Cardiovascular System: Heart with regular rate and rhythm. No murmur. GI System: Abdomen soft, nontender. Normo active bowel sounds present. Musculoskeletal System: limbs with right lower extremity with mild pedal edema. Full distal pulses. Intense erythema from right ankle to the knee with some streaking up the medial thigh. Induration posterior calf with no fluctuance. Open blisters with clean skin intact underneath. Neurological System: No discernable sensory deficit. No aphasia Psychiatric System: Conversation is rational Quality Measures - VTE Contraindication to Pharmacological VTE Prophylaxis: Thrombocytopenia Contraindication to Mechanical VTE Prophylaxis: Local Inflammation Results - Labs CBC & BMP: 11/27/16 04:08 11/27/16 04:08 Lab Results: I have reviewed the past 24 hour labs
[2016-11-27] MEDS: CHLORHEXIDINE 4% SOLN 118 ML BOTTLE TOP SCH (17:45)
[2016-11-27] MEDS: GABAPENTIN 600 MG TABLET PO SCH (22:21)
[2016-11-27] MEDS: GABAPENTIN 100 MG CAPSULE PO SCH (22:22)
[2016-11-27] MEDS: CLORAZEPATE 7.5 MG TABLET PO PRN (22:22)
[2016-11-28] MEDS: CIPROFLOXACIN INJ 400 MG in PREMIX 1 EACH IV SCH ×2 (00:50→12:46)
[2016-11-28] MEDS: LEVALBUTEROL 1.25 MG/3 ML NEB RESP TX SCH ×7 (04:19→23:51)
[2016-11-28 06:39] LABS: Hematocrit 25.1 VOL% (42.0-52.0); Hemoglobin 8.9 GM/DL (14.0-18.0); Immature Granulocytes % 1.2 %; Immature Granulocytes Absolute 0.04 #; Lymphocytes # 0.6 10*3/uL (1.4-4.0); Lymphocytes % 16.3 % (21.2-54.2); Mean Corpuscular HGB Conc 35.5 GM/DL (32-36); Mean Corpuscular Hemoglobin 35 PG (27-34); Mean Corpuscular Volume 97.7 FL (87-102); Mean Platelet Volume 14.4 FL (9.6-12.0); Monocytes # 0.1 10*3/uL (0.11-0.8); Neutrophils # 2.7 10*3/uL (1.4-7.4); Neutrophils % 79.5 % (38.7-73.9); Red Blood Count 2.57 MC/CUMM (3.8-5.5); Red Cell Distribution Width 17.1 % (9.3-17.3); White Blood Count 3.4 T/CUMM (4-12)
[2016-11-28 06:57] LABS: Platelet Count 13 T/CUMM (130-400)
[2016-11-28 07:02] LABS: Band Neutrophils 15 % (0-10); Hypochromasia Slight; Lymphocytes 14 % (20-55); Microcytosis 1+; Platelet Estimate Decreased; Segmented Neutrophils 68 % (50-85); Total Cells Counted 100
[2016-11-28 07:07] LABS: Bilirubin,Total 0.8 MG/DL (0.2-1.0); Calcium 7.4 MG/DL (8.5-10.1); Osmolality,Calculated 298.7 MOS/KG (273-304); Potassium 4.7 MMOL/L (3.5-5.1); Total Protein 4.9 G/DL (6.4-8.3)
[2016-11-28] MEDS ORDERED: SODIUM CHLORIDE 0.9% 250 ML IV PRN (07:45)
--- NOTE | 2016-11-28 07:50 | Oncology Progress Note ---
Assessment and Plan (1) AML (acute myeloblastic leukemia) Status: Acute Current Visit: Yes (2) COPD (chronic obstructive pulmonary disease) Status: Acute Current Visit: Yes (3) Cellulitis Status: Acute Current Visit: Yes (4) Sepsis Status: Acute Current Visit: Yes (5) Thrombocytopenia Status: Acute Current Visit: No (6) Leukopenia Status: Chronic Current Visit: No (7) Myelodysplasia (myelodysplastic syndrome) Status: Chronic Current Visit: No Oncology Subjective PN Interval history: Mr. Alexander is now on a regular hospital floor. He is doing well. His right leg appears to be less swollen today but still has significant cellulitis. I do not see any obvious areas of fluctuance to drain. Debridement in his case would be risky given his pancytopenia. If the superficial skin layer becomes necrotic, we may have no choice but to debride the top layer. His white count seems to be improving. His platelet count is low today at 13. I will give him 1 unit of platelets today. I think we should continue with IV Cipro and IV vancomycin for now. His right leg cellulitis is his biggest issue that is keeping him in the hospital. I will go ahead and consult physical therapy to help regain his strength in anticipation for discharge home later this week. I am unsure if infectious disease is going to want long-term IV antibiotics for his leg or if they feel p.o. treatment will be suffice. Exam - Constitutional Vitals: Period Temp Pulse Resp BP Sys/Faulkner Pulse Ox Last 24 Hr 97.3 F-98.6 F 54-99 16-24 118-140/38-96 90-100 General appearance: normal weight, no acute distress - Head Head Exam: Present: normocephalic, atraumatic - Eye Eye Exam: Present: EOMI Pupils: Present: PERRL - ENT ENT exam: Present: normal exam, normal oropharynx - Neck Neck exam: Absent: lymphadenopathy, thyromegaly - Respiratory Respiratory exam: Present: CTAB. Absent: wheezes - Cardiovascular Cardiovascular exam: Present: RRR. Absent: JVD - GI/Abdominal GI/Abdominal exam: Present: soft. Absent: ascites, distended, mass - Neurological Exam Neurological exam: Present: alert, oriented X3 - Psychiatric Psychiatric exam: Present: normal affect, normal mood - Skin Skin exam: Present: other (Obvious area of cellulitis on his right calf) Results - Labs CBC & BMP: 11/28/16 06:14 11/28/16 06:14 Lab Results: I have reviewed the past 24 hour labs Quality Measures - VTE Contraindication to Pharmacological VTE Prophylaxis: Thrombocytopenia Contraindication to Mechanical VTE Prophylaxis: Local Inflammation
[2016-11-28] MEDS: VANCOMYCIN INJ 1,500 MG in SODIUM CHLORIDE 0.9% 500 ML IV SCH (08:03)
[2016-11-28] MEDS: FAMOTIDINE 20 MG/2 ML VIAL IV SCH ×2 (08:03→21:35)
[2016-11-28] MEDS: POTASSIUM CHLORIDE 10 MEQ TABLET PO SCH (08:03)
[2016-11-28] MEDS: GABAPENTIN 600 MG TABLET PO SCH ×2 (08:03→21:35)
[2016-11-28] MEDS: CHLORHEXIDINE 4% SOLN 118 ML BOTTLE TOP SCH (08:23)
--- NOTE | 2016-11-28 16:06 | Hospitalist Progress Note ---
Assessment and Plan (1) Cellulitis of right leg Problem details: Ruptured bullous lesion along proximal calf. Lower right calf bullous lesion intact still fluid-filled. Status: Acute Assessment and plan: Patient has apparently improved from what he presented at the time of admission his repeat culture has been negative he is responding to antibiotic well will continue those antibiotics and follow with ID recommendations. Current Visit: Yes (2) Sepsis Status: Acute Assessment and plan: Sepsis due to above cellulitis Current Visit: Yes (3) AML (acute myeloblastic leukemia) Status: Acute Assessment and plan: Status post chemotherapy with pancytopenia oncology following. White count is increased platelets are still low there is no overt bleeding but need to be aware of that. Hemoglobin hematocrit is a little down from yesterday will continue follow to make sure there is no associated GI bleed especially with a BUN little elevated at 44 Current Visit: Yes (4) Acute kidney injury Problem details: Possibly related to hypotensive episode related to sepsis and septic shock. Continue IV hydration to improve sepsis and renal perfusion. Monitor daily BUN and creatinine. Status: Acute Assessment and plan: Keep hydration Current Visit: Yes (5) Pancytopenia Problem details: Multifactorial including myelodysplastic syndrome (confirmed by bone marrow biopsy December 2015). 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 Patient remains severely neutropenic. his absolute neutrophil count measures approximately 350. Platelet count remains within critical range at 22,000. No spontaneous bleeding noticed. Status: Acute Assessment and plan: Due to chemotherapy oncology follow Current Visit: Yes Hospitalist: Subjective Interval history: Mr. Alexander is a 81 year old male with history of leukemia and bladder cancer status post prostatectomy and you bladder resection. He was diagnosed to have a leukemia about 6 months ago and has been getting chemotherapy. His last chemotherapy was about a month ago. He was admitted on 11/23/2016 with the altered mental status and generalized weakness along with fever and some rash on the back of right cough. It was started the blister but increased progressively. He was noted to have pancytopenia with a WBC count of 0.4 platelet count 1 of 13. He had positive blood culture of Citrobacter from admission. He has been followed by infectious disease general surgery and oncology. At present patient is on ciprofloxacin and vancomycin. He was in ICU but was transferred after stabilization. He is afebrile now and alert. He has some pain right lower leg Exam - Constitutional Vitals: Period Temp Pulse Resp BP Sys/Faulkner Pulse Ox Last 24 Hr 97.3 F-98.6 F 54-98 12-20 105-133/51-76 90-100 General appearance: no acute distress - Respiratory Respiratory exam: Present: clear to auscultation bilaterally. Absent: rales, rhonchi - Cardiovascular Cardiovascular exam: Present: regular rate and rhythm. Absent: tachycardia - GI/Abdominal GI/Abdominal exam: Present: normal bowel sounds, soft. Absent: tenderness - Extremities Exam Extremities exam: Present: edema, other (Right lower extremities edema with erythema involving lower right calf and leg posteriorly with some involvement of the thigh. Some drainage from the blisters) Results - Labs CBC & BMP: 11/28/16 06:14 11/28/16 06:14 Lab Results: I have reviewed the past 24 hour labs Quality Measures - VTE Contraindication to Pharmacological VTE Prophylaxis: Thrombocytopenia Contraindication to Mechanical VTE Prophylaxis: Local Inflammation
--- NOTE | 2016-11-28 17:41 | Infectious Disease Progress ---
Assessment and Plan (1) Cellulitis Status: Acute Assessment and plan: Cellulitis to right leg slow to improved. Recommendations: I would continue the vancomycin until there is notable improvement in the appearance of his right leg. r Current Visit: Yes (2) Sepsis Status: Acute Assessment and plan: Patient had septicemia due to Acinetobacter. Clinically he is improved on antibiotic therapy. He was getting meropenem but that was replaced with ciprofloxacin yesterday and I agree with this. He had staph capitis in his blood which I suspect was a contaminant. Patient will remain on vancomycin because of the cellulitis. Current Visit: Yes (3) Acute renal disease Status: Acute Assessment and plan: Most likely due to sepsis with hypotension. Renal function now normal. Continue to watch closely on vancomycin. Current Visit: No (4) Pancytopenia, acquired Status: Chronic Assessment and plan: Reportedly due to myelodysplastic syndrome. Current Visit: No (5) Febrile neutropenia Status: Acute Assessment and plan: Fever resolved and repeat blood cultures negative today. Current Visit: Yes Infectious Disease - PN: Subj Interval history: Patient overall feeling okay is out of ICU. He has not had fever. Right leg still a bit sore but improved. Family concerned that he still confused though they admit this is better than before. Infectious Disease Exam (PN) - Constitutional Vitals: Temp Pulse Resp BP Pulse Ox 97.8 F 96 H 20 106/53 98 11/28/16 16:00 11/28/16 16:00 11/28/16 16:00 11/28/16 16:00 11/28/16 16:00 General appearance: no acute distress Exam: General appearance: Alert and talkative, nontoxic-appearing - Eye Eye exam: Present: EOMI. no icterus Pupils: Present: SHAZIA - ENT ENT exam: no oral exudates - Respiratory Respiratory exam: vesicular BS, no crepitations or wheezes - Cardiovascular Cardiovascular exam: regular rate and rhythm, no murmurs - GI/Abdominal GI/Abdominal exam: normal bowel sounds, soft, non-tender, no organomegaly or mass - Extremities Exam Extremities exam: Less edema to the right leg however there is still quite a bit of erythema although this looks more hemorrhagic probably related to bleeding from the computer use related to his thrombocytopenia. There is no hyperemia and the affected area does not seem indurated except on the posterior medial thigh where there is some streaking and a hard knot is palpated as if he has some lymphangitis. Blistering noted with some skin loss - Skin Skin exam: no rash Results - Labs CBC & BMP: 11/28/16 06:14 11/28/16 06:14 Lab Results: I have reviewed the past 24 hour labs (Repeat blood cultures negative today) Quality Measures - VTE Contraindication to Pharmacological VTE Prophylaxis: Thrombocytopenia Contraindication to Mechanical VTE Prophylaxis: Local Inflammation
[2016-11-28] MEDS: CLORAZEPATE 7.5 MG TABLET PO PRN (21:35)
[2016-11-28] MEDS: GABAPENTIN 100 MG CAPSULE PO SCH (21:35)
[2016-11-29] MEDS: CIPROFLOXACIN INJ 400 MG in PREMIX 1 EACH IV SCH ×2 (00:24→12:00)
[2016-11-29] MEDS: VANCOMYCIN INJ 1,500 MG in SODIUM CHLORIDE 0.9% 500 ML IV SCH ×2 (02:37→22:35)
[2016-11-29 02:42] LABS: Bilirubin,Total 0.9 MG/DL (0.2-1.0); Calcium 7.1 MG/DL (8.5-10.1); Osmolality,Calculated 289.3 MOS/KG (273-304); Total Protein 4.8 G/DL (6.4-8.3)
[2016-11-29 02:50] LABS: Eosinophils % 0.5 % (0.00-10.9); Hematocrit 23.8 VOL% (42.0-52.0); Hemoglobin 8.3 GM/DL (14.0-18.0); Immature Granulocytes % 0.8 %; Immature Granulocytes Absolute 0.03 #; Lymphocytes # 1.1 10*3/uL (1.4-4.0); Lymphocytes % 28.6 % (21.2-54.2); Mean Corpuscular HGB Conc 34.9 GM/DL (32-36); Mean Corpuscular Hemoglobin 35 PG (27-34); Mean Corpuscular Volume 99.6 FL (87-102); Mean Platelet Volume 12.3 FL (9.6-12.0); Monocytes # 0.1 10*3/uL (0.11-0.8); Monocytes % 2.4 % (1.7-12.7); Neutrophils # 2.5 10*3/uL (1.4-7.4); Neutrophils % 67.7 % (38.7-73.9); Red Blood Count 2.39 MC/CUMM (3.8-5.5); Red Cell Distribution Width 17.3 % (9.3-17.3); White Blood Count 3.7 T/CUMM (4-12)
[2016-11-29 02:53] LABS: Platelet Count 28 T/CUMM (130-400)
[2016-11-29] MEDS: LEVALBUTEROL 1.25 MG/3 ML NEB RESP TX SCH ×6 (03:55→23:20)
[2016-11-29 04:43] LABS: Band Neutrophils 2 % (0-10); Lymphocytes 23 % (20-55); Metamyelocytes 1 %; Segmented Neutrophils 74 % (50-85); Total Cells Counted 100
[2016-11-29 04:44] LABS: Anisocytosis 1+; Platelet Estimate Decreased; Tear Drop Cells Few
--- NOTE | 2016-11-29 07:56 | Oncology Progress Note ---
Assessment and Plan (1) AML (acute myeloblastic leukemia) Status: Acute Current Visit: Yes (2) COPD (chronic obstructive pulmonary disease) Status: Acute Current Visit: Yes (3) Cellulitis Status: Acute Current Visit: Yes (4) Sepsis Status: Acute Current Visit: Yes (5) Thrombocytopenia Status: Acute Current Visit: No (6) Leukopenia Status: Chronic Current Visit: No (7) Myelodysplasia (myelodysplastic syndrome) Status: Chronic Current Visit: No Oncology Subjective PN Interval history: Mr. Alexander seems to be doing well today. His neutrophil count remains above 2. He does not need reverse isolation with a normal neutrophil count. His right leg appears slightly improved. There is less erythema extending to the knee. His lower leg was extensively wrapped this morning so I did not see the actual ulcerated area. I think he still needs at least another day or 2 of IV vancomycin for his cellulitis. He remains on IV Cipro for his Acinetobacter bacteremia. He does not need any transfusions today. Physical therapy is working with him. I encouraged him to ambulate as much as he can on his own and to sit up in the chair for most of the day. Exam - Constitutional Vitals: Period Temp Pulse Resp BP Sys/Faulkner Pulse Ox Last 24 Hr 97.1 F-98.2 F 70-98 17-20 105-133/51-76 92-99 General appearance: normal weight, no acute distress - Head Head Exam: Present: normocephalic, atraumatic - Eye Eye Exam: Present: EOMI Pupils: Present: PERRL - ENT ENT exam: Present: normal exam, normal oropharynx - Neck Neck exam: Absent: lymphadenopathy, thyromegaly - Respiratory Respiratory exam: Present: CTAB. Absent: wheezes - Cardiovascular Cardiovascular exam: Present: RRR. Absent: JVD - GI/Abdominal GI/Abdominal exam: Present: soft. Absent: ascites, mass - Neurological Exam Neurological exam: Present: alert, oriented X3 - Psychiatric Psychiatric exam: Present: normal affect, normal mood (He still has some erythema to the knee on his right leg but this is improved from yesterday) Results - Labs CBC & BMP: 11/29/16 01:49 11/29/16 01:49 Lab Results: I have reviewed the past 24 hour labs Quality Measures - VTE Contraindication to Pharmacological VTE Prophylaxis: Thrombocytopenia Contraindication to Mechanical VTE Prophylaxis: Local Inflammation
[2016-11-29] MEDS: POTASSIUM CHLORIDE 10 MEQ TABLET PO SCH (10:15)
[2016-11-29] MEDS: GABAPENTIN 600 MG TABLET PO SCH ×2 (10:16→22:34)
--- NOTE | 2016-11-29 11:27 | Hospitalist Progress Note ---
Assessment and Plan - Time spent with patient Time spent with patient: Less than 30 minutes (1) AML (acute myeloblastic leukemia) Status: Acute Assessment and plan: Oncology is following. Patient is status post chemotherapy with pancytopenia. Neutrophil count is 2.5 this a.m. WBC up to 3.7 this a.m from 3.4. Plt count is up to 28 from 13. H&H is down slightly this a.m. to 8.3 and 23.8. Will continue to monitor a.m. labs. will continue to follow Oncology for further recommendations. Current Visit: Yes (2) Acute kidney injury Problem details: Possibly related to hypotensive episode related to sepsis and septic shock. Continue IV hydration to improve sepsis and renal perfusion. Monitor daily BUN and creatinine. Status: Acute Assessment and plan: BUN improving 39 this a.m and creatinine 1.00. will repeat a.m. labs and continue to monitor for improvement Current Visit: Yes (3) Cellulitis of right leg Problem details: Ruptured bullous lesion along proximal calf. Lower right calf bullous lesion intact still fluid-filled. Status: Acute Assessment and plan: Swelling has improved slightly. Will continue antibiotic therapy and wound care. Will continue PT therapy. Will continue to follow with ID recommendations. Current Visit: Yes (4) Pancytopenia Problem details: Multifactorial including myelodysplastic syndrome (confirmed by bone marrow biopsy December 2015). 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 Patient remains severely neutropenic. his absolute neutrophil count measures approximately 350. Platelet count remains within critical range at 22,000. No spontaneous bleeding noticed. Status: Acute Assessment and plan: Patient has history of Myelodysplastic syndome. Platelet count is 28 this a.m up from 13. neutrophil is 2.5 this a.m. Will continue to closely monitor for bleeding. Will continue to follow oncology recommendations. Will repeat a.m. labs. Current Visit: Yes Hospitalist: Subjective Interval history: Mr Alexander with history of leukemia and bladder cancer. He is sitting up in chair this a.m. Verbalizes a better night last night. He reports some improvement in the right lower leg edema (cellulitis), dressing intact and minimal drainage noted to the dressing. He reports they should be coming shortly to change his dressing and wound care. He reports that he is working with PT and tolerating ambulation. He reports that his pain is being well managed at this time. Denies any shortness of breath, fever, chills, nausea or vomiting at this time. Exam - Constitutional Vitals: Period Temp Pulse Resp BP Sys/Faulkner Pulse Ox Last 24 Hr 97.1 F-97.8 F 82-98 18-20 105-133/51-76 92-98 General appearance: over weight - Head Head exam: Present: normal inspection - Eye Eye exam: Present: EOMI Pupils: Present: SHAZIA - ENT ENT exam: Present: other (moist membranes) - Neck Neck exam: Present: normal inspection - Respiratory Respiratory exam: Present: clear to auscultation bilaterally - Cardiovascular Cardiovascular exam: Present: regular rate and rhythm - GI/Abdominal GI/Abdominal exam: Present: normal bowel sounds, soft. Absent: tenderness, rebound - Extremities Exam Extremities exam: Present: full ROM, edema (right leg with edema and erythema extending from lower calf to thigh (lower posterior thigh with minimal swelling and redness); drainage noted to lower area of dressing) - Expanded Right Lower Lower leg exam: Present: full ROM, swelling, tenderness, erythema - Neurological Exam Neurological exam: Present: alert, oriented X3 - Psychiatric Psychiatric exam: Present: normal affect, normal mood - Skin Skin exam: Present: normal color, warm, dry, erythema (right lower leg and posterior lower thigh with dressing intact (cellulitis)) Results - Labs CBC & BMP: 11/29/16 01:49 11/29/16 01:49 Lab Results: I have reviewed the past 24 hour labs Quality Measures - VTE Contraindication to Pharmacological VTE Prophylaxis: Thrombocytopenia Contraindication to Mechanical VTE Prophylaxis: Local Inflammation
--- NOTE | 2016-11-29 11:45 | Infectious Disease Progress ---
Assessment and Plan (1) Cellulitis Status: Acute Assessment and plan: Cellulitis to right leg slow to improve. Recommendations: I think patient getting a prolonged course of antibiotics intravenously. I would not stop it until we see notable improvement in the leg. Patient's family is reluctant to take him home before there is notable improvement and think he needs physical therapy. We discussed possible LTAC placement in they like this idea. Will consult social media assistant to look into LTAC placement so the patient can continue his IV antibiotics, get aggressive wound care, and physical therapy. Current Visit: Yes (2) Sepsis Status: Acute Assessment and plan: Patient had septicemia due to Acinetobacter. Clinically he is improved on antibiotic therapy. He had staph capitis in his blood which I suspect was a contaminant. Patient will remain on vancomycin until the significant improvement in the cellulitis. Current Visit: Yes (3) Acute renal disease Status: Acute Assessment and plan: Most likely due to sepsis with hypotension. Renal function now normal. Continue to watch closely on vancomycin. Current Visit: No (4) Pancytopenia, acquired Status: Chronic Assessment and plan: Reportedly due to myelodysplastic syndrome. Current Visit: No (5) Febrile neutropenia Status: Acute Assessment and plan: Fever resolved and repeat blood cultures negative. Current Visit: Yes Infectious Disease - PN: Subj Interval history: Patient doing okay he is very anxious to go home. He still has some soreness in his right leg especially when he walks on it. He has not had fever. Tolerating his antibiotics without nausea vomiting or diarrhea. He was ambulating today. Infectious Disease Exam (PN) - Constitutional Vitals: Temp Pulse Resp BP Pulse Ox 97.4 F L 92 H 18 133/74 95 11/29/16 04:00 11/29/16 10:16 11/29/16 10:16 11/29/16 04:00 11/29/16 10:16 General appearance: over weight Exam: General appearance: Alert and talkative, nontoxic-appearing - Eye Eye exam: Present: EOMI. no icterus Pupils: Present: SHAZIA - ENT ENT exam: no oral exudates - Respiratory Respiratory exam: vesicular BS, no crepitations or wheezes - Cardiovascular Cardiovascular exam: regular rate and rhythm, no murmurs - GI/Abdominal GI/Abdominal exam: normal bowel sounds, soft, non-tender, no organomegaly or mass - Extremities Exam Extremities exam: Right leg exam more or less unchanged since yesterday, still with a lot of blistering and hemorrhagic changes on the skin, except that he no longer has a firm knot to the posterior medial thigh and the erythema that is slightly less. kin loss - Skin Skin exam: no rash Results - Labs CBC & BMP: 11/29/16 01:49 11/29/16 01:49 Lab Results: I have reviewed the past 24 hour labs Quality Measures - VTE Contraindication to Pharmacological VTE Prophylaxis: Thrombocytopenia Contraindication to Mechanical VTE Prophylaxis: Local Inflammation
[2016-11-29] MEDS ORDERED: SILVER SULFADIAZINE 1% CREAM 400 GM JAR TOP ONE (12:00)
[2016-11-29] MEDS: CHLORHEXIDINE 4% SOLN 118 ML BOTTLE TOP SCH (12:00)
[2016-11-29] MEDS: FAMOTIDINE 20 MG/2 ML VIAL IV SCH ×2 (12:00→22:34)
--- NOTE | 2016-11-29 16:07 | General Surgery Progress Note ---
Assessment and Plan - Time spent with patient Time spent with patient: Less than 30 minutes (1) Myelodysplasia (myelodysplastic syndrome) Status: Chronic Assessment and plan: Mr. Alexander is a very pleasant 81-year-old white male with history of bladder cancer and acute myelogenous leukemia. Patient was septic with positive blood cultures with gram-negative rods. Dr. Madsen from infectious disease is following along with oncology. Patient is currently on Cipro and vancomycin. Patient has an intense erythema with induration and bullous formation with some that have opened and drained and peeled. Did not see any signs of fluctuance or area that needs to be opened at this time. Wound orders have been written and agree with continued antibiotics per Dr. Madsen. Dr. Lott will see and examine patient and further recommendations to follow. 11/29/2016 patient's leg looks a little improved today as far as erythema and induration go. He still has multiple areas of bullous formation but the fluid is clear. His leg is more supple today and the redness seems to have receded mildly. Am mildly concerned about the posterior calf and that the color is more pale than it is pink. We will go ahead and change of the wound care orders by adding some Silvadene to the leg wound. Laurie POZO was also in on his care today. Still no indication for surgery at this time. Discussed with Dr. Lott. Current Visit: No (2) Pancytopenia, acquired Status: Chronic Current Visit: No (3) Sepsis Status: Acute Current Visit: Yes (4) Cellulitis Status: Acute Current Visit: Yes (5) Bladder cancer Status: Chronic Current Visit: Yes (6) Febrile neutropenia Status: Acute Current Visit: Yes Subjective Narrative: Patient is very talkative and in good spirits today. He states his leg looks and feels better according to him. He is not having much pain in the leg and he was able to walk with physical therapy today. Exam - Constitutional Vitals: Period Temp Pulse Resp BP Sys/Faulkner Pulse Ox Last 24 Hr 97.1 F-98.2 F 68-92 18-21 104-133/64-76 92-97 Exam: 81-year-old white male, no acute distress, alert and oriented Chest clear CV regular rate and rhythm Abdomen soft and nontender Extremities right lower leg continues with erythema but does seem to be improved. He still has multiple bolus formations in the leg is more supple. Am concerned about the posterior calf being pale and no longer pink, continues to have moderate edema in the right ankle Results - Labs CBC & BMP: 11/29/16 01:49 11/29/16 01:49 Lab Results: I have reviewed the past 24 hour labs Quality Measures - VTE Contraindication to Pharmacological VTE Prophylaxis: Thrombocytopenia Contraindication to Mechanical VTE Prophylaxis: Local Inflammation
[2016-11-29] MEDS: GABAPENTIN 100 MG CAPSULE PO SCH (22:34)
[2016-11-30] MEDS: CIPROFLOXACIN INJ 400 MG in PREMIX 1 EACH IV SCH ×2 (01:28→12:29)
[2016-11-30] MEDS: LEVALBUTEROL 1.25 MG/3 ML NEB RESP TX SCH ×6 (03:39→23:48)
[2016-11-30 07:15] LABS: Eosinophils % 0.8 % (0.00-10.9); Hematocrit 22.3 VOL% (42.0-52.0); Hemoglobin 7.7 GM/DL (14.0-18.0); Immature Granulocytes % 1.3 %; Immature Granulocytes Absolute 0.05 #; Lymphocytes % 24.7 % (21.2-54.2); Mean Corpuscular HGB Conc 34.5 GM/DL (32-36); Mean Corpuscular Hemoglobin 35 PG (27-34); Mean Corpuscular Volume 100.5 FL (87-102); Mean Platelet Volume 12.6 FL (9.6-12.0); Monocytes # 0.1 10*3/uL (0.11-0.8); Monocytes % 2.9 % (1.7-12.7); NRBC # 0.02 10*3/uL; Neutrophils # 2.7 10*3/uL (1.4-7.4); Neutrophils % 70.3 % (38.7-73.9); Red Blood Count 2.22 MC/CUMM (3.8-5.5); Red Cell Distribution Width 16.6 % (9.3-17.3); White Blood Count 3.9 T/CUMM (4-12)
[2016-11-30 07:23] LABS: Platelet Count 25 T/CUMM (130-400)
[2016-11-30 07:40] LABS: Band Neutrophils 3 % (0-10); Hypochromasia 2+; Lymphocytes 31 % (20-55); Microcytosis 2+; Platelet Estimate Decreased; Polychromasia Slight; Segmented Neutrophils 65 % (50-85); Total Cells Counted 100
[2016-11-30 07:52] LABS: Albumin 1.9 G/DL (3.4-5.0); Calcium 7.2 MG/DL (8.5-10.1); Osmolality,Calculated 277.7 MOS/KG (273-304); Potassium 4.5 MMOL/L (3.5-5.1); Total Protein 4.6 G/DL (6.4-8.3)
[2016-11-30] MEDS ORDERED: SODIUM CHLORIDE 0.9% 250 ML IV PRN (08:10)
--- NOTE | 2016-11-30 08:13 | Oncology Progress Note ---
Assessment and Plan (1) AML (acute myeloblastic leukemia) Status: Acute Current Visit: Yes (2) COPD (chronic obstructive pulmonary disease) Status: Acute Current Visit: Yes (3) Cellulitis Status: Acute Current Visit: Yes (4) Sepsis Status: Acute Current Visit: Yes (5) Thrombocytopenia Status: Acute Current Visit: No (6) Leukopenia Status: Chronic Current Visit: No (7) Myelodysplasia (myelodysplastic syndrome) Status: Chronic Current Visit: No Oncology Subjective PN Interval history: Mr. Messina hemoglobin has decreased some overnight. It is now below 8. I think he would benefit from 2 units of blood particularly since we are looking at transferring him to a more long-term stay facility for further IV antibiotics. I had a lengthy discussion yesterday with his and granddaughter who is a nurse about his current situation. I told him that he does seem to have turnaround from his recent septic episode but we are nowhere near at a place where he is back to his usual self. His acute leukemia makes him very fragile to any illness and his clinical situation could deteriorate rapidly at any time. I think transferring him to an LTAC is reasonable. He may need transfusions there. My recommendations would be to transfuse 2 units of blood anytime if hemoglobin drops below 8 and transfuse 1 unit of single donor platelets anytime his platelet count drops below 20. He remains afebrile here. All of his repeat cultures are negative. He appears to be on a good road to recovery. Once he is fully discharge from whatever long-term facility he goes to, we will likely restart Dacogen if he is still doing well at that time. At any point that he deteriorates, we will strongly consider hospice. It is quite remarkable that his age with advanced leukemia that has been diagnosed for almost a year now, that he is still alive. Exam - Constitutional Vitals: Period Temp Pulse Resp BP Sys/Faulkner Pulse Ox Last 24 Hr 97.6 F-99.1 F 68-94 18-20 104-131/61-73 69-98 General appearance: normal weight, no acute distress - Head Head Exam: Present: normocephalic, atraumatic - Eye Eye Exam: Present: EOMI Pupils: Present: PERRL - ENT ENT exam: Present: normal exam, normal oropharynx - Neck Neck exam: Absent: lymphadenopathy, thyromegaly - Respiratory Respiratory exam: Present: CTAB. Absent: wheezes - Cardiovascular Cardiovascular exam: Present: RRR. Absent: JVD - GI/Abdominal GI/Abdominal exam: Present: soft. Absent: ascites, distended, mass - Neurological Exam Neurological exam: Present: alert, oriented X3 - Psychiatric Psychiatric exam: Present: normal affect, normal mood - Skin Skin exam: Present: warm, dry Results - Labs CBC & BMP: 11/30/16 06:19 11/30/16 06:19 Quality Measures - VTE Contraindication to Pharmacological VTE Prophylaxis: Thrombocytopenia Contraindication to Mechanical VTE Prophylaxis: Local Inflammation
[2016-11-30] MEDS: POTASSIUM CHLORIDE 10 MEQ TABLET PO SCH (09:16)
[2016-11-30] MEDS: FAMOTIDINE 20 MG/2 ML VIAL IV SCH ×2 (09:16→20:35)
[2016-11-30] MEDS: GABAPENTIN 600 MG TABLET PO SCH ×2 (09:16→20:35)
[2016-11-30] MEDS: CHLORHEXIDINE 4% SOLN 118 ML BOTTLE TOP SCH (10:30)
--- NOTE | 2016-11-30 10:41 | General Surgery Progress Note ---
Assessment and Plan (1) Cellulitis of right leg Problem details: Ruptured bullous lesion along proximal calf. Lower right calf bullous lesion intact still fluid-filled. Status: Acute Assessment and plan: The cellulitis in the right leg is improving. I will sign off. Continue antibiotics and local wound care. Call back with questions per Current Visit: Yes Subjective Patient reports: Present: no new complaints, afebrile Exam - Constitutional Vitals: Period Temp Pulse Resp BP Sys/Faulkner Pulse Ox Last 24 Hr 97.6 F-99.1 F 68-94 18-20 104-131/61-73 69-99 General appearance: no acute distress, over weight - Head Head exam: Present: normal inspection, normocephalic - Eye Eye exam: Present: EOMI Pupils: Present: SHAZIA - ENT ENT exam: Present: normal exam Mouth exam: Present: normal external inspection, normal voice - Neck Neck exam: Present: normal inspection, trachea midline - Respiratory Respiratory exam: Present: clear to auscultation bilaterally. Absent: accessory muscle use, chest wall tenderness - Cardiovascular Cardiovascular exam: Present: RRR. Absent: systolic murmur, tachycardia - GI/Abdominal GI/Abdominal exam: Present: soft. Absent: tenderness, rebound - Extremities Exam Extremities exam: Present: normal inspection, normal capillary refill - Back Exam Back exam: Present: normal inspection - Neurological Exam Neurological exam: Present: alert, oriented X3 Speech: Present: normal - Skin Skin exam: Present: normal color, warm Results - Labs CBC & BMP: 11/30/16 06:19 11/30/16 06:19 Quality Measures - VTE Contraindication to Pharmacological VTE Prophylaxis: Thrombocytopenia Contraindication to Mechanical VTE Prophylaxis: Local Inflammation
--- NOTE | 2016-11-30 11:19 | Hospitalist Progress Note ---
Assessment and Plan - Time spent with patient Time spent with patient: Less than 30 minutes (1) AML (acute myeloblastic leukemia) Status: Acute Assessment and plan: 11/30/16 - Oncology seen this a.m noted decrease in H&H. Patient will receive RBC 2 units. Agree with oncology recommendation of LTAC for further care after leaving hospital. Oncology recommends transfusing 2 units of blood anytime hemoglobin drops below 8 and transfuse single donor platelets when count drops below 20. Thank you for recommendations and following patient. 11/29/16 - Oncology is following. Patient is status post chemotherapy with pancytopenia. Neutrophil count is 2.5 this a.m. WBC up to 3.7 this a.m from 3.4. Plt count is up to 28 from 13. H&H is down slightly this a.m. to 8.3 and 23.8. Will continue to monitor a.m. labs. will continue to follow Oncology for further recommendations. Current Visit: Yes (2) Acute kidney injury Problem details: Possibly related to hypotensive episode related to sepsis and septic shock. Continue IV hydration to improve sepsis and renal perfusion. Monitor daily BUN and creatinine. Status: Acute Assessment and plan: 11/30/16 - BUN 25 and Creatinine 1.10 this a.m. Will continue to monitor a.m. labs. 11/29/16 - BUN improving 39 this a.m and creatinine 1.00. will repeat a.m. labs and continue to monitor for improvement Current Visit: Yes (3) Cellulitis of right leg Problem details: Ruptured bullous lesion along proximal calf. Lower right calf bullous lesion intact still fluid-filled. Status: Acute Assessment and plan: 11/30/16 - slight improvement in swelling to right leg cellulitis. Dr Lott recommends to continue antibiotics and local wound care and is signing off, unless needed in the future. I greatly appreciate his recommendations and care with this patient. 11/29/16 -Swelling has improved slightly. Will continue antibiotic therapy and wound care. Will continue PT therapy. Will continue to follow with ID recommendations. Current Visit: Yes (4) Pancytopenia Problem details: Multifactorial including myelodysplastic syndrome (confirmed by bone marrow biopsy December 2015). 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 Patient remains severely neutropenic. his absolute neutrophil count measures approximately 350. Platelet count remains within critical range at 22,000. No spontaneous bleeding noticed. Status: Acute Assessment and plan: 11/30/16 - Patient continues to be monitored by Oncology/Heme. Neutrophil is 2.7 this a.m. Platelet count 25. Will repeat a.m. labs and continue to monitor closely. Greatly appreciate oncology/heme recommendations with this patient's care. 11/29/16 -Patient has history of Myelodysplastic syndome. Platelet count is 28 this a.m up from 13. neutrophil is 2.5 this a.m. Will continue to closely monitor for bleeding. Will continue to follow oncology recommendations. Will repeat a.m. labs. Current Visit: Yes Hospitalist: Subjective Interval history: 11/30/16 - Mr Little resting comfortable in the bed, family at bedside. No acute distress noted. Some pain in the right leg with ambulation, comfortable at present. Exam - Constitutional Vitals: Period Temp Pulse Resp BP Sys/Faulkner Pulse Ox Last 24 Hr 97.6 F-99.1 F 68-94 18-20 104-131/61-73 69-99 General appearance: over weight - Head Head exam: Present: normal inspection - Eye Eye exam: Present: EOMI Pupils: Present: SHAZIA - Neck Neck exam: Present: normal inspection - Respiratory Respiratory exam: Present: clear to auscultation bilaterally. Absent: rhonchi, wheezes - Cardiovascular Cardiovascular exam: Present: regular rate and rhythm - GI/Abdominal GI/Abdominal exam: Present: normal bowel sounds, soft. Absent: guarding, rebound - Extremities Exam Extremities exam: Present: edema (right leg dressing intact and dry ) - Neurological Exam Neurological exam: Present: alert, oriented X3 - Psychiatric Psychiatric exam: Present: normal affect, normal mood - Skin Skin exam: Present: normal color, warm, dry Results - Labs CBC & BMP: 11/30/16 06:19 11/30/16 06:19 Lab Results: I have reviewed the past 24 hour labs Labs: 11/30/16 - Neutrophils 2.7 Quality Measures - VTE Contraindication to Pharmacological VTE Prophylaxis: Thrombocytopenia Contraindication to Mechanical VTE Prophylaxis: Local Inflammation
[2016-11-30] MEDS: VANCOMYCIN INJ 1,500 MG in SODIUM CHLORIDE 0.9% 500 ML IV SCH (15:38)
--- NOTE | 2016-11-30 17:55 | Infectious Disease Progress ---
Assessment and Plan (1) Cellulitis Status: Acute Assessment and plan: Cellulitis to right leg slow to improve. Recommendations: Continue vancomycin and aggressive wound care. I will follow the patient at specialty. Current Visit: Yes (2) Sepsis Status: Acute Assessment and plan: Patient had septicemia due to Acinetobacter. Clinically he is improved on antibiotic therapy. He had staph capitis in his blood which I suspect was a contaminant. Continue ciprofloxacin until December 09. Current Visit: Yes (3) Acute renal disease Status: Acute Assessment and plan: Most likely due to sepsis with hypotension. Renal function now normal. Continue to watch closely on vancomycin. Current Visit: No (4) Pancytopenia, acquired Status: Chronic Assessment and plan: Reportedly due to myelodysplastic syndrome. Current Visit: No (5) Febrile neutropenia Status: Resolved Assessment and plan: Resolved Current Visit: Yes Infectious Disease - PN: Subj Interval history: Patient doing relatively okay, still some soreness in the right leg. No fever. He has been accepted to go to specialty tomorrow. Infectious Disease Exam (PN) - Constitutional Vitals: Temp Pulse Resp BP Pulse Ox 99.0 F 95 H 18 121/56 92 L 11/30/16 15:37 11/30/16 15:37 11/30/16 15:37 11/30/16 15:37 11/30/16 15:37 General appearance: over weight Exam: General appearance: Alert and talkative, nontoxic-appearing - Eye Eye exam: Present: EOMI. no icterus Pupils: Present: SHAZIA - ENT ENT exam: no oral exudates - Respiratory Respiratory exam: vesicular BS, no crepitations or wheezes - Cardiovascular Cardiovascular exam: regular rate and rhythm, no murmurs - GI/Abdominal GI/Abdominal exam: normal bowel sounds, soft, non-tender, no organomegaly or mass - Extremities Exam Extremities exam: Right leg bandaged, there is still some streaking of erythema up the posterior medial right thigh - Skin Skin exam: no rash Results - Labs CBC & BMP: 11/30/16 06:19 11/30/16 06:19 Lab Results: I have reviewed the past 24 hour labs (Repeat blood cultures negative to date) Quality Measures - VTE Contraindication to Pharmacological VTE Prophylaxis: Thrombocytopenia Contraindication to Mechanical VTE Prophylaxis: Local Inflammation
[2016-11-30] MEDS: GABAPENTIN 100 MG CAPSULE PO SCH (20:35)
[2016-12-01] MEDS: CIPROFLOXACIN INJ 400 MG in PREMIX 1 EACH IV SCH ×2 (01:30→14:40)
[2016-12-01] MEDS: LEVALBUTEROL 1.25 MG/3 ML NEB RESP TX SCH ×3 (03:18→10:29)
[2016-12-01 06:19] LABS: Basophils % 0.3 % (0.0-0.8); Eosinophils # 0.1 10*3/uL (0.0-0.87); Eosinophils % 1.3 % (0.00-10.9); Hematocrit 26.5 VOL% (42.0-52.0); Immature Granulocytes % 1.8 %; Immature Granulocytes Absolute 0.07 #; Lymphocytes # 0.9 10*3/uL (1.4-4.0); Mean Corpuscular HGB Conc 35.1 GM/DL (32-36); Mean Corpuscular Hemoglobin 34 PG (27-34); Mean Corpuscular Volume 98.1 FL (87-102); Mean Platelet Volume 11.4 FL (9.6-12.0); Monocytes # 0.1 10*3/uL (0.11-0.8); Monocytes % 3.5 % (1.7-12.7); Neutrophils # 2.8 10*3/uL (1.4-7.4); Neutrophils % 71.1 % (38.7-73.9); Red Cell Distribution Width 16.8 % (9.3-17.3)
[2016-12-01 06:25] LABS: Platelet Count 33 T/CUMM (130-400)
[2016-12-01 06:26] LABS: Hemoglobin 9.3 GM/DL (14.0-18.0)
[2016-12-01 06:53] LABS: Albumin 1.8 G/DL (3.4-5.0); Calcium 7.5 MG/DL (8.5-10.1); Osmolality,Calculated 277.7 MOS/KG (273-304)
[2016-12-01 07:01] LABS: Lymphocytes 19 % (20-55); Platelet Estimate Decreased; Segmented Neutrophils 79 % (50-85); Total Cells Counted 100
[2016-12-01 07:02] LABS: Hypochromasia 2+
[2016-12-01] MEDS: FAMOTIDINE 20 MG/2 ML VIAL IV SCH (08:11)
[2016-12-01] MEDS: VANCOMYCIN INJ 1,500 MG in SODIUM CHLORIDE 0.9% 500 ML IV SCH (08:11)
[2016-12-01] MEDS: GABAPENTIN 600 MG TABLET PO SCH (08:12)
[2016-12-01] MEDS: POTASSIUM CHLORIDE 10 MEQ TABLET PO SCH (08:12)
[2016-12-01] MEDS: CHLORHEXIDINE 4% SOLN 118 ML BOTTLE TOP SCH (08:14)
--- NOTE | 2016-12-01 08:31 | Oncology Progress Note ---
Assessment and Plan (1) AML (acute myeloblastic leukemia) Status: Acute Current Visit: Yes (2) COPD (chronic obstructive pulmonary disease) Status: Acute Current Visit: Yes (3) Cellulitis Status: Acute Current Visit: Yes (4) Sepsis Status: Acute Current Visit: Yes (5) Thrombocytopenia Status: Acute Current Visit: No (6) Leukopenia Status: Chronic Current Visit: No (7) Myelodysplasia (myelodysplastic syndrome) Status: Chronic Current Visit: No Oncology Subjective PN Interval history: Mr. Alexander looks good today. He responded well to 2 units packed red cells. For some reason he did not receive his blood until early this morning even I ordered it yesterday morning around 8 AM. I am assuming there was some difficulty finding the appropriate match. Fortunately this was not urgent matter so it was perfectly fine for him to have such a delay in receiving the blood. His right leg looks essentially the same to me today. There is still some erythema above the knee on the posterior thigh. He is being discharged to an LTAC at [facility] for further IV antibiotics and physical therapy care. Again, my recommendations for transfusions would be a hemoglobin less than 8 or a platelet count less than 20. He will need to come see me in clinic shortly after his discharge from the LTAC so that we can resume his Dacogen therapy for his AML. Exam - Constitutional Vitals: Period Temp Pulse Resp BP Sys/Faulkner Pulse Ox Last 24 Hr 96.8 F-99.9 F 76-95 17-20 99-134/56-87 91-99 General appearance: normal weight, no acute distress - Head Head Exam: Present: normocephalic, atraumatic - ENT ENT exam: Present: normal exam, normal oropharynx - Neck Neck exam: Absent: lymphadenopathy, thyromegaly - Respiratory Respiratory exam: Present: CTAB. Absent: wheezes - Cardiovascular Cardiovascular exam: Present: RRR. Absent: JVD, systolic murmur - GI/Abdominal GI/Abdominal exam: Present: ascites. Absent: distended, mass - Neurological Exam Neurological exam: Present: alert, oriented X3 - Psychiatric Psychiatric exam: Present: normal affect, normal mood - Skin Skin exam: Present: warm, dry Results - Labs CBC & BMP: 12/01/16 05:52 12/01/16 05:52 Lab Results: I have reviewed the past 24 hour labs Quality Measures - VTE Contraindication to Pharmacological VTE Prophylaxis: Thrombocytopenia Contraindication to Mechanical VTE Prophylaxis: Local Inflammation
[2016-12-01 11:58] VITALS: BP 114/68
--- NOTE | 2016-12-01 12:46 | Infectious Disease Progress ---
Assessment and Plan (1) Cellulitis Status: Acute Assessment and plan: Cellulitis to right leg, improving but slowly. Recommendations: Continue vancomycin and aggressive wound care. He is going to specialty today and I will see me on Sunday. Discussed with at bedside Current Visit: Yes (2) Sepsis Status: Acute Assessment and plan: Patient had septicemia due to Acinetobacter. Clinically he is improved on antibiotic therapy. He had staph capitis in his blood which I suspect was a contaminant. Continue ciprofloxacin until December 09. Current Visit: Yes (3) Acute renal disease Status: Acute Assessment and plan: Most likely due to sepsis with hypotension. Renal function now normal. Continue to watch closely on vancomycin. Current Visit: No (4) Pancytopenia, acquired Status: Chronic Assessment and plan: Reportedly due to myelodysplastic syndrome and AML. Current Visit: No (5) Febrile neutropenia Status: Resolved Assessment and plan: Resolved Current Visit: Yes Infectious Disease - PN: Subj Interval history: Patient doing well, afebrile. Tolerating antibiotics without nausea vomiting or diarrhea. Infectious Disease Exam (PN) - Constitutional Vitals: Temp Pulse Resp BP Pulse Ox 97.8 F 82 18 114/68 93 L 12/01/16 11:57 12/01/16 11:57 12/01/16 11:57 12/01/16 11:57 12/01/16 11:57 General appearance: normal weight, no acute distress Exam: General appearance: Comfortable - Eye Eye exam: Present: EOMI. no icterus Pupils: Present: SHAZIA - ENT ENT exam: no oral exudates - Extremities Exam Extremities exam: Right leg with necrosis of skin and subcutaneous tissues, blisters have all ruptured. Overall the leg looks better with less edema. - Skin Skin exam: no rash Results - Labs CBC & BMP: 12/01/16 05:52 12/01/16 05:52 Lab Results: I have reviewed the past 24 hour labs Quality Measures - VTE Contraindication to Pharmacological VTE Prophylaxis: Thrombocytopenia Contraindication to Mechanical VTE Prophylaxis: Local Inflammation
--- NOTE | 2016-12-01 13:00 | Discharge Summary ---
Hospital Course - Hospital Course Hospital Course: This hospitalization included patient admitted for fever, bacteremia, sepsis due to urinary tract infection and cellulitis as well as altered mental status due to sepsis. Blood cultures were positive for Acinetobacter. Moreover urine cultures were positive for E. coli. The gentleman was started on broad- spectrum antibiotics. Infectious disease was consulted for further management. Antibiotics were tailored to culture results. Temperature curve continued to improve. Oncology was also consulted due to patient's underlying cancer history of AML and bladder cancer. The recommendation was to continue medical management for this patient. He had a CT head that showed no intracranial pathology no masses appreciated. Moreover, lower extremity Dopplers were negative for DVT. Surgery was consulted for the lower extremity cellulitis. Further wound care continued for this patient. Over the course of hospitalization his mentation continued to improve. He had acute renal failure that continue to improve as well serum creatinine has been stable at 1. He has required 2 units packed red blood cells that was completed earlier this morning. Hematocrit is now at 26. Dr. Esparza made recommendations for further transfusions for hemoglobin less than 8. He has a history of thrombocytopenia. Platelet count has been 33. Of note, this patient was a DO NOT RESUSCITATE during this hospitalization. The patient will follow up with Dr. Roger at discharge. Consult was made for patient to go to [facility] due to the cellulitis and wound. He has been accepted to [facility] and will continue wound care and antibiotics there. - Time spent with patient Time with patient DS: Greater than 30 minutes (35 minutes) Diagnosis - Discharge Diagnosis (1) Leukopenia Status: Chronic (2) Acute renal disease Status: Resolved (3) Thrombocytopenia Status: Chronic (4) Sepsis Status: Resolved (5) Cellulitis Status: Chronic (6) Bladder cancer Status: Chronic (7) GERD (gastroesophageal reflux disease) Status: Chronic (8) AML (acute myeloblastic leukemia) Status: Chronic (9) UTI (urinary tract infection) Status: Resolved Discharge Plan - Discharge Data Disposition: Disch/[facility]fer to [facility] Condition at Discharge: Stable Discharge Diet: advance to your usual diet Activity: resume usual activities as tolerated Hygiene: no restrictions Contact your physician if you experience:: fever over 101 - Discharge Medications New Acetaminophen Tab [Tylenol Tab] 650 mg PO Q4H PRN tablet PRN Reason: Fever, Headache, Mild Pain Ciprofloxacin Inj [Cipro Inj] 400 mg IV Q12H Levalbuterol Neb [Xopenex Neb] 1.25 mg RESP TX RT Q4H Ondansetron Inj [Zofran Inj] 4 mg IV Q4H PRN vial PRN Reason: Nausea Vancomycin Inj 1,500 mg IV Q18H vial Ziprasidone Inj [Geodon Inj] 10 mg IM Q6H PRN vial PRN Reason: Agitation Chlorhexidine 4% Soln [Hibiclens] 1 applic TOP DAILY applic Continue Aspirin [Ecotrin] 81 mg PO MOWEFR Montelukast Tab [Singulair Tab] 10 mg PO BEDTIME Potassium Chloride 10 meq PO DAILY Gabapentin 600 mg PO BID predniSONE TAB [PredniSONE] 10 mg PO DAILY #10 tablet Omeprazole 20 mg PO Q3DAY Gabapentin Cap/Tab [Neurontin Cap/Tab] 200 mg PO BEDTIME amLODIPine [Norvasc] 5 mg PO DAILY Discontinued Nitrofurantoin Macrocrystal [Nitrofurantoin] 100 mg PO BID Meloxicam [Meloxicam] 15 mg PO DAILY - Follow Up or Referral - Forms/Instructions Additional Discharge Instructions: Follow-up with the specialty [facility] for wound care management. Exam - Constitutional Vitals: Period Temp Pulse Resp BP Sys/Faulkner Pulse Ox Last 24 Hr 96.8 F-99.9 F 76-95 17-20 104-134/56-87 91-99 General appearance: normal weight - Head Head exam: Present: normal inspection - Eye Eye exam: Present: EOMI - Neck Neck exam: Present: normal inspection - Respiratory Respiratory exam: Present: clear to auscultation bilaterally - Cardiovascular Cardiovascular exam: Present: regular rate and rhythm - Neurological Exam Neurological exam: Present: alert, oriented X3 - Psychiatric Psychiatric exam: Present: normal affect - Skin Skin exam: Present: normal color, warm Discharge Results Procedures and tests throughout hospitalization: Pending Orders 12/02/16 01:00 Vancomycin,Trough Timed Labs on day of discharge: Labs from last 24 hours 12/01/16 12/01/16 11/30/16 05:52 05:52 06:19 WBC 4.0 RBC 2.70 L D Hgb 9.3 L D Hct 26.5 L MCV 98.1 MCH 34 MCHC 35.1 RDW 16.8 Plt Count 33 L* D MPV 11.4 Neut % (Auto) 71.1 Lymph % (Auto) 22.0 [place] % (Auto) 3.5 Eos % (Auto) 1.3 Baso % (Auto) 0.3 Neut # (Auto) 2.8 Lymph # (Auto) 0.[address] [place] # (Auto) 0.1 L Eos # (Auto) 0.1 Baso # (Auto) 0.0 Total Counted 100 Immature Gran % 1.8 Nucleated RBC % 0.0 Immature Gran # 0.07 Segmented Neutrophils 79 Lymphocytes 19 L Monocytes 2 Nucleated RBCs # 0.00 Platelet Estimate Decreased Hypochromasia 2+ Sodium 138 Potassium 4.0 Chloride 103 Carbon Dioxide 28 Anion Gap 11.0 BUN 18 Creatinine 1.10 GFR Calculation 83 BUN/Creatinine Ratio 16.00 Glucose 125 H Calculated Osmolality 277.7 Calcium 7.5 L Total Bilirubin 1.00 AST 17 ALT 65 H Alkaline Phosphatase 88 Total Protein 5.0 L Albumin 1.8 L Globulin 3.2 Albumin/Globulin Ratio 0.5 L Blood Type O POSITIVE Antibody Screen Negative Crossmatch See Detail DS: Provider Date of admission: 11/23/16 13:38 Primary care physician: Delilah Quintana M.D. Attending physician on admission: Mihir John MD Consults: 11/23/16 14:01 Consult to Physician [CONS] Routine Comment: Critical pancytopenia Consulting Provider: Porfirio Roger Consulting Provider Notified: Yes When should Consulting Provider be notified: Now Consult to Specialist Group: Oncology When should Consulting Provider be notified: Now Person Notified: JAROD Date Notified: 11/23/16 Time Notified: 14:33 Consult to Physician [CONS] Routine Comment: Febrile neutropenia Consulting Provider: Geri Schilling Consulting Provider Notified: Yes When should Consulting Provider be notified: Now Consult to Specialist Group: Infectious Disease When should Consulting Provider be notified: Now Person Notified: césar Date Notified: 11/23/16 Time Notified: 14:28 11/23/16 16:34 Consult to Pharmacy [CONS] Routine Reason for Pharmacy Consult: Dose/Manage Vancomycin 11/25/16 13:51 Consult to Dietitian [CONS] Routine Reason for Dietitian: Supplements and/or Snacks Consult Comment: pt not eating much 11/27/16 10:36 Consult to Physician [CONS] Routine Comment: Right lower leg cellulitis Consulting Provider: Compa Lott Consult to Specialist Group: Surgery Person Notified: ARYAN Date Notified: 11/27/16 Time Notified: 11:28 Consult Notification Comment: ADVISED ARYAN OF CONSULT @ DR MOE OFFICE & THAT PT WOULD BE MOVED TO [facility] LATER TODAY , @ [address] MOE OFFICE THAT FAMILY NOW REQUESTS DR LOTT FOR CONSULT & NOTIFIED DR LOTT'S OFFICE OF CONSULT -- PT WILL BE MOVED TO 436 11/28/16 07:45 Consult to Physical Therapy [CONS] Routine Reason for Physical Therapy: Evaluate and Treat 11/29/16 11:04 Consult to Case Mgmt/Social Srvs [CONS] Routine Reason for Case Mgmt/Social Srvs: LTAC 11/29/16 11:46 Consult to Case Mgmt/Social Srvs [CONS] Routine Reason for Case Mgmt/Social Srvs: LTAC Consult Comment: Intravenous antibiotics at least 2 weeks, wound care, and physical therapy Discharging clinician: Brandon Kim Jr., MD
== END 2016-12-01 15:45 | DRG 871 ==
LOC: N.ED 10:49 → N.EDINP 13:38 → SUATTDRO 13:38 → N.EDINP 14:44 → N.4E 14:49 → N.CC 17:01 → N.4E 11-27 15:10 → N.5E 11-27 17:22
PROVIDERS: ADMIT Internal Medicine Cardiovascular Disease; ATTEND Internal Medicine Nephrology

== ENCOUNTER 2016-12-06 16:52 | Inpatient (IN) ==
--- NOTE | 2016-12-06 17:25 | General Surg History&Physical ---
Assessment and Plan (1) Cellulitis of right leg Problem details: Ruptured bullous lesion along proximal calf. Lower right calf bullous lesion intact still fluid-filled. Status: Acute Assessment and plan: The patient will be admitted to the hospital and we will continue IV antibiotics. Plan for debridement in the operating room tomorrow. The risks, benefits, and alternatives of the operation were discussed with the patient and his family, and the expected outcomes have been reviewed. They agreed to the procedure History of Present Illness Chief complaint: Right lower leg wound History of present illness: Mr. Alexander is a 81 year old male with a history of leukemia who is currently on chemotherapy recently transferred to [facility] for right lower leg wound and developed necrotic eschar over his medial right lower leg for which she is being transferred back to [facility] for debridement and possible skin grafting. Patient has been stable down at [facility]. He has been on antibiotics. Home Medications Medication Instructions Recorded Confirmed Type Aspirin [Ecotrin] 81 mg PO MOWEFR 12/06/14 11/23/16 History Gabapentin 600 mg PO BID 12/06/14 11/23/16 History Montelukast Tab [Singulair Tab] 10 mg PO BEDTIME 12/06/14 11/23/16 History Potassium Chloride 10 meq PO DAILY 12/06/14 11/23/16 History predniSONE TAB [PredniSONE] 10 mg PO DAILY #10 tablet 12/10/14 11/23/16 Rx Gabapentin Cap/Tab [Neurontin 200 mg PO BEDTIME 11/23/16 11/23/16 History Cap/Tab] Omeprazole 20 mg PO Q3DAY 11/23/16 11/23/16 History amLODIPine [Norvasc] 5 mg PO DAILY 11/23/16 11/23/16 History Acetaminophen Tab [Tylenol Tab] 650 mg PO Q4H PRN tablet 12/01/16 Rx Chlorhexidine 4% Soln [Hibiclens] 1 applic TOP DAILY applic 12/01/16 Rx Ciprofloxacin Inj [Cipro Inj] 400 mg IV Q12H 12/01/16 Rx Levalbuterol Neb [Xopenex Neb] 1.25 mg RESP TX RT Q4H 12/01/16 Rx Ondansetron Inj [Zofran Inj] 4 mg IV Q4H PRN vial 12/01/16 Rx Vancomycin Inj 1,500 mg IV Q18H vial 12/01/16 Rx Ziprasidone Inj [Geodon Inj] 10 mg IM Q6H PRN vial 12/01/16 Rx Allergies Allergy/AdvReac Type Severity Reaction Status Date / Time No Known Allergies Allergy Verified 03/11/16 15:24 Medical,Surgical,& Family Hx - Medical History Cardio: History of: Aneurysm (Aortic (1967)) Neurology: History of: Vertigo HEENT: History of: Ear Problem Rheumatology: History of;: Rheumatoid Arthritis Respiratory: History of: Respiratory Problems (non-specific per family) Genitourinary: History of: Genitourinary Cancer (Bladder Cancer (2011)), Problems (status post cystectomy for bladder cancer) Gastrointestinal: History of: GERD Hematology: History of: Blood Disorders (myelodysplastic syndrome) - Surgical History Thoracic Surgeries: Patient denies;: Organ Transplant HEENT Surgeries: Surgical HX of: Eye Surgery (Cataract Surgery), Tonsilectomy & Adenoidectomy (removed at age 6) Abdominal Surgeries: Surgical HX of: Appendectomy, Cholecystectomy, Colonoscopy , Hernia Repair Reproductive Surgeries: Surgical HX of;: Genitourinary Surgery (urostomy (2011)) , Prostate Surgery (removed (2011)) - Family History Family History: Denies;: Family Hypertension - Social History Smoking Status: Never smoker Exam - Constitutional General appearance: no acute distress, over weight - Head Head exam: Present: normal inspection, normocephalic - Eye Eye exam: Present: EOMI Pupils: Present: SHAZIA - ENT ENT exam: Present: normal exam Mouth exam: Present: normal external inspection, normal voice - Neck Neck exam: Present: normal inspection, trachea midline - Respiratory Respiratory exam: Present: clear to auscultation bilaterally. Absent: accessory muscle use, chest wall tenderness - Cardiovascular Cardiovascular exam: Present: RRR. Absent: systolic murmur, tachycardia - GI/Abdominal GI/Abdominal exam: Present: normal bowel sounds, soft. Absent: tenderness, rebound - Extremities Exam Extremities exam: Present: other (Necrotic eschar right lower leg medial calf measures approximately 200 cm. No obvious infection. No fluctuance or purulence. No foul odor.) - Back Exam Back exam: Present: normal inspection - Neurological Exam Neurological exam: Present: alert, oriented X3 Speech: Present: normal - Skin Skin exam: Present: normal color, warm - Constitutional Constitutional: Present: as per HPI - EENT Nose, mouth and throat: Present: as per HPI - Cardiovascular Cardiovascular: Present: as per HPI - Respiratory Respiratory: Present: as per HPI - Gastrointestinal Gastrointestinal: Present: as per HPI - Genitourinary Genitourinary: Present: as per HPI - Musculoskeletal Musculoskeletal: Present: as per HPI - Neurological Neurological: Present: as per HPI - Endocrine Endocrine: Present: as per HPI Hematologic/Lymphatic: Present: as per HPI
[2016-12-06] MEDS ORDERED: PROMETHAZINE 25 MG/1 ML VIAL IM PRN (21:25)
[2016-12-06] MEDS ORDERED: ACETAMINOPHEN 325 MG TABLET PO PRN (21:25)
[2016-12-06] MEDS ORDERED: GLUCAGON 1 MG VIAL IM PRN (21:25)
[2016-12-06] MEDS ORDERED: DEXTROSE 50% 25 GM/50 ML VIAL IV PRN (21:25)
[2016-12-06] MEDS ORDERED: ONDANSETRON 4 MG/2 ML VIAL IV PRN (21:25)
[2016-12-06] MEDS ORDERED: VANCOMYCIN INJ 1,000 MG in SODIUM CHLORIDE 0.9% 250 ML IV SCH (21:25)
[2016-12-06 21:50] LABS: Basophils % 0.3 % (0.0-0.8); Eosinophils # 0.1 10*3/uL (0.0-0.87); Eosinophils % 3.2 % (0.00-10.9); Hematocrit 25.1 VOL% (42.0-52.0); Hemoglobin 8.7 GM/DL (14.0-18.0); Immature Granulocytes Absolute 0.03 #; Lymphocytes # 0.7 10*3/uL (1.4-4.0); Lymphocytes % 23.9 % (21.2-54.2); Mean Corpuscular HGB Conc 34.7 GM/DL (32-36); Mean Corpuscular Hemoglobin 34 PG (27-34); Mean Corpuscular Volume 96.5 FL (87-102); Mean Platelet Volume 9.9 FL (9.6-12.0); Monocytes # 0.2 10*3/uL (0.11-0.8); Monocytes % 4.8 % (1.7-12.7); Neutrophils # 2.1 10*3/uL (1.4-7.4); Neutrophils % 66.8 % (38.7-73.9); Platelet Count 53 T/CUMM (130-400); White Blood Count 3.1 T/CUMM (4-12)
[2016-12-06 22:04] LABS: Calcium 7.6 MG/DL (8.5-10.1); Osmolality,Calculated 264.4 MOS/KG (273-304); Potassium 3.9 MMOL/L (3.5-5.1)
[2016-12-06 22:10] LABS: Band Neutrophils 1 % (0-10); Lymphocytes 25 % (20-55); Platelet Estimate Decreased; Segmented Neutrophils 71 % (50-85); Total Cells Counted 100
[2016-12-06] MEDS: INSULIN REGULAR 100 UNIT/ML SUBCUT SCH (23:23)
[2016-12-06] MEDS: VANCOMYCIN INJ 1,500 MG in SODIUM CHLORIDE 0.9% 500 ML IV SCH (23:47)
[2016-12-07] MEDS: INSULIN REGULAR 100 UNIT/ML SUBCUT SCH ×4 (06:58→20:54)
[2016-12-07 07:00] LABS: Basophils % 0.3 % (0.0-0.8); Eosinophils # 0.1 10*3/uL (0.0-0.87); Eosinophils % 3.1 % (0.00-10.9); Hematocrit 25.8 VOL% (42.0-52.0); Hemoglobin 8.9 GM/DL (14.0-18.0); Immature Granulocytes % 0.7 %; Immature Granulocytes Absolute 0.02 #; Lymphocytes # 0.7 10*3/uL (1.4-4.0); Lymphocytes % 25.4 % (21.2-54.2); Mean Corpuscular HGB Conc 34.5 GM/DL (32-36); Mean Corpuscular Hemoglobin 34 PG (27-34); Mean Corpuscular Volume 97.7 FL (87-102); Mean Platelet Volume 10.8 FL (9.6-12.0); Monocytes # 0.1 10*3/uL (0.11-0.8); Monocytes % 4.9 % (1.7-12.7); Neutrophils # 1.9 10*3/uL (1.4-7.4); Neutrophils % 65.6 % (38.7-73.9); Red Blood Count 2.64 MC/CUMM (3.8-5.5); White Blood Count 2.9 T/CUMM (4-12)
[2016-12-07 07:02] LABS: Platelet Count 59 T/CUMM (130-400)
[2016-12-07 07:26] LABS: Calcium 7.9 MG/DL (8.5-10.1); Osmolality,Calculated 269.1 MOS/KG (273-304); Potassium 4.6 MMOL/L (3.5-5.1)
--- NOTE | 2016-12-07 07:37 | Oncology History&Physical ---
History of Present Illness History of present illness: He has had pancytopenia since early in 2014. 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 At that time the patient was found to have approximately 20% blasts on bone marrow but cytogenetics were normal. The patient was treated with Dacogen. At the time of an evaluation of the patient on October 30, 2016, Dr. Roger found pancytopenia once again because the patient had severe neutropenia and thrombocytopenia with a platelet count of 50,000. In spite of comments made on this chart concerning the chemotherapy causing the pancytopenia, it appears that the myelodysplastic syndrome with increased blasts is actually the cause of the pancytopenia. Apparently the patient has been started back on Dacogen recently. He has been found to have cellulitis in his right calf. In addition, as I was dictating this, I was notified that the patient has gram- negative rods on 2 blood cultures. He is currently on Merrem and vancomycin. Infectious disease is consulted. Past medical history: No known allergies The patient had been followed in the past for bladder cancer. Past medical history is positive for: Aortic aneurysm Vertigo Rheumatoid arthritis Respiratory congestion and dyspnea Bladder cancer treated with cystectomy. GERD Surgical history: Positive cataract surgery, tonsillectomy and adenoidectomy at age 6. Positive for appendicitis post appendectomy, cholecystectomy, colonoscopy and hernia repair. Prostatectomy in 2011. Social history: Occasional alcoholic beverage intake. He has never smoked. Family history: Negative for AML or bladder cancer. Positive for arterial sclerosis. Review of systems: General: Positive for fatigue, fever and night sweats that are long-standing. ENT: Negative for mouth ulcers, nasal congestion and nasal drainage. Eyes: Negative for vision change and decreased visual acuity. Respiratory: Positive for pulmonary congestion and occasional cough. Negative for chest pain or hemoptysis. Cardiovascular: Positive for aortic aneurysm. Negative for cardiac syncope, claudication or irregular heartbeat/palpitations. GI: Positive for GERD. Negative for abdominal pain, constipation, decreased appetite, diarrhea or vomiting. : The patient has had a cystectomy. Endocrine: Negative for cold intolerance. Negative for thyroid disease or diabetes. Psychiatric: Negative for psychiatric illness. Skin: Negative for rash or skin lesions. Musculoskeletal: Positive for rheumatoid arthritis. Hematologic: Positive for pancytopenia but negative for easy bleeding or easy bruising. Home Medications Medication Instructions Recorded Confirmed Type Gabapentin 600 mg PO TID 12/06/14 12/06/16 History Potassium Chloride 10 meq PO DAILY 12/06/14 12/06/16 History Acetaminophen Tab [Tylenol Tab] 650 mg PO Q4H PRN tablet 12/01/16 12/06/16 Rx Ciprofloxacin Inj [Cipro Inj] 400 mg IV Q12H 12/01/16 12/06/16 Rx Levalbuterol Neb [Xopenex Neb] 1.25 mg RESP TX RT Q4H 12/01/16 12/06/16 Rx Vancomycin Inj 1,500 mg IV Q18H vial 12/01/16 12/06/16 Rx Ziprasidone Inj [Geodon Inj] 10 mg IM Q6H PRN vial 12/01/16 12/06/16 Rx Albuterol Sulfate [Albuterol Tab] 1 tablet PO QID 12/06/16 12/06/16 History Alum/Mag/Simeth Liquid [Mylanta 30 ml PO RT Q6H PRN 12/06/16 12/06/16 History Liquid] Bisacodyl Supp [Dulcolax Supp] 10 mg RECTAL DAILY PRN 12/06/16 12/06/16 History Ciprofloxacin Lactate/D5w 400 mg IV BID 12/06/16 12/06/16 History [Ciprofloxacin Inj] Clorazepate [Tranxene] 1 tablet PO RT Q6H 12/06/16 12/06/16 History Famotidine Inj [Pepcid Inj] 20 mg IV BID 12/06/16 12/06/16 History Lactulose Liquid [Chronulac] 30 ml PO DAILY PRN 12/06/16 12/06/16 History Ondansetron Inj [Zofran Inj] 4 mg IV Q4H PRN vial 12/06/16 12/06/16 Rx Silver Sulfadiazine 1% Cream 1 applic TOP DAILY 12/06/16 12/06/16 History [Silvadene 1% Cream] cloNIDine HCl [Clonidine HCl] 0.1 mg PO Q6HR PRN 12/06/16 12/06/16 History Allergies Allergy/AdvReac Type Severity Reaction Status Date / Time No Known Allergies Allergy Verified 03/11/16 15:24 Medical,Surgical,& Family Hx - Medical History Cardio: History of: Aneurysm (Aortic (1967)), Hypertension Psychological: No history of: Anxiety Disorders, ADHD, Behavior Problems, Bipolar Disorder, Depression, Previous Suicide Attempt, Psychiatric/Substance Abuse Tx, Schizophrenia, Violent Behavior, Psychiatric Problems Neurology: History of: Vertigo HEENT: History of: Ear Problem Rheumatology: History of;: Rheumatoid Arthritis Respiratory: History of: Respiratory Problems (non-specific per family) Genitourinary: History of: Genitourinary Cancer (Bladder Cancer (2011)), Problems (status post cystectomy for bladder cancer) Gastrointestinal: History of: GERD Hematology: History of: Blood Disorders (myelodysplastic syndrome) - Surgical History Thoracic Surgeries: Patient denies;: Organ Transplant HEENT Surgeries: Surgical HX of: Eye Surgery (Cataract Surgery), Tonsilectomy & Adenoidectomy (removed at age 6) Abdominal Surgeries: Surgical HX of: Appendectomy, Cholecystectomy, Colonoscopy , Hernia Repair Reproductive Surgeries: Surgical HX of;: Genitourinary Surgery (urostomy (2011)) , Prostate Surgery (removed (2011)) - Family History Family History: Denies;: Family Hypertension - Social History Smoking Status: Never smoker Frequency of Alcohol Use: Occasionally Type of Drug Use: None Exam - Constitutional Vitals: Period Temp Pulse Resp BP Sys/Faulkner Pulse Ox Last 24 Hr 97.4 F-100.0 F 81-92 20-22 112-137/63-75 91-94 Results - Labs CBC & BMP: 12/07/16 06:20 12/07/16 06:20 Quality Measures - VTE Contraindication to Pharmacological VTE Prophylaxis: Thrombocytopenia
[2016-12-07 07:39] LABS: Band Neutrophils 2 % (0-10); Hypochromasia 1+; Lymphocytes 27 % (20-55); Microcytosis 1+; Ovalocytes Slight; Platelet Estimate Decreased; Segmented Neutrophils 68 % (50-85); Total Cells Counted 100
--- NOTE | 2016-12-07 08:17 | Oncology Consult Note ---
History of Present Illness Chief complaint: Myelodysplastic syndrome converting to AML History of present illness: Mr. Alexander is a 81 year old male who is followed by Dr. 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 He was last here within the last month with sepsis and severe neutropenia. He returns now from swing bed because of an infection of his right calf that has failed to heal. This was apparently the source of his sepsis at the time of his last admission. Lab work this morning includes a white cell count 2900 with an absolute neutrophil count of 1900 which should be adequate. His hemoglobin is 8.9 and his platelet count is 59,000. I am ordering a comprehensive metabolic profile and LDH since we really need to know what his liver function is and a little bit more concerning his myelodysplastic syndrome in transition to AML. I do note that on his basic metabolic profile his electrolytes are normal and his serum creatinine is 1.0. In addition, note that a vancomycin trough level is 23.3 but I am not sure of the significance of this. He has had pancytopenia since early in 2014. 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 At that time the patient was found to have approximately 20% blasts on bone marrow but cytogenetics were normal. The patient was treated with Dacogen. At the time of an evaluation of the patient on October 30, 2016, Dr. Roger found pancytopenia once again because the patient had severe neutropenia and thrombocytopenia with a platelet count of 50,000. In spite of comments made on this chart concerning the chemotherapy causing the pancytopenia, it appears that the myelodysplastic syndrome with increased blasts is actually the cause of the pancytopenia. He has been found to have cellulitis in his right calf. In addition, as I was dictating this, I was notified that the patient has gram- negative rods on 2 blood cultures. He is currently on Merrem and vancomycin. Infectious disease is consulted. Past medical history: No known allergies The patient had been followed in the past for bladder cancer. Past medical history is positive for: Aortic aneurysm Vertigo Rheumatoid arthritis Respiratory congestion and dyspnea Bladder cancer treated with cystectomy. GERD Surgical history: Positive cataract surgery, tonsillectomy and adenoidectomy at age 6. Positive for appendicitis post appendectomy, cholecystectomy, colonoscopy and hernia repair. Prostatectomy in 2011. Social history: Occasional alcoholic beverage intake. He has never smoked. Family history: Negative for AML or bladder cancer. Positive for arterial sclerosis. Review of systems: General: Positive for fatigue, fever and night sweats that are long-standing. ENT: Negative for mouth ulcers, nasal congestion and nasal drainage. Eyes: Negative for vision change and decreased visual acuity. Respiratory: Positive for pulmonary congestion and occasional cough. Negative for chest pain or hemoptysis. Cardiovascular: Positive for aortic aneurysm. Negative for cardiac syncope, claudication or irregular heartbeat/palpitations. GI: Positive for GERD. Negative for abdominal pain, constipation, decreased appetite, diarrhea or vomiting. : The patient has had a cystectomy. Endocrine: Negative for cold intolerance. Negative for thyroid disease or diabetes. Psychiatric: Negative for psychiatric illness. Skin: Negative for rash or skin lesions. Musculoskeletal: Positive for rheumatoid arthritis. Hematologic: Positive for pancytopenia but negative for easy bleeding or easy bruising. Physical examination: General: The patient appears somewhat chronically ill but he is certainly improved from the last time I saw him. Eyes: Lids and conjunctive are normal. ENT: He is somewhat hard of hearing. His oral mucosa and pharynx are normal. His voice is clear. Neck: No neck masses. His trachea is midline. His thyroid appears normal. Lungs: Breath sounds are slightly coarse without rubs, rales or rhonchi. His chest moves symmetrically with respiration and he has no chest wall tenderness. Cardiovascular: His heart rhythm is regular without murmur, gallop or rub. There is no jugular venous distention, clubbing, cyanosis or edema. Abdomen: He has several well-healed surgical incision scars. I palpate no ascites and there are no masses or organomegaly and no tenderness. Musculoskeletal: There is no focal muscle atrophy or bone or joint deformity. Neurologic: Cranial nerves II through XII are intact. The no focal neurologic deficits. Nodes: There is no submandibular, cervical, supraclavicular or axillary adenopathy. Skin: His right calf is bandaged. I did not examine it. I see no significant ecchymoses or petechiae however and no other significant rashes. 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 We will follow this patient with you. Thank you for consulting. Home Medications Medication Instructions Recorded Confirmed Type Gabapentin 600 mg PO TID 12/06/14 12/06/16 History Potassium Chloride 10 meq PO DAILY 12/06/14 12/06/16 History Acetaminophen Tab [Tylenol Tab] 650 mg PO Q4H PRN tablet 12/01/16 12/06/16 Rx Ciprofloxacin Inj [Cipro Inj] 400 mg IV Q12H 12/01/16 12/06/16 Rx Levalbuterol Neb [Xopenex Neb] 1.25 mg RESP TX RT Q4H 12/01/16 12/06/16 Rx Vancomycin Inj 1,500 mg IV Q18H vial 12/01/16 12/06/16 Rx Ziprasidone Inj [Geodon Inj] 10 mg IM Q6H PRN vial 12/01/16 12/06/16 Rx Albuterol Sulfate [Albuterol Tab] 1 tablet PO QID 12/06/16 12/06/16 History Alum/Mag/Simeth Liquid [Mylanta 30 ml PO RT Q6H PRN 12/06/16 12/06/16 History Liquid] Bisacodyl Supp [Dulcolax Supp] 10 mg RECTAL DAILY PRN 12/06/16 12/06/16 History Ciprofloxacin Lactate/D5w 400 mg IV BID 12/06/16 12/06/16 History [Ciprofloxacin Inj] Clorazepate [Tranxene] 1 tablet PO RT Q6H 12/06/16 12/06/16 History Famotidine Inj [Pepcid Inj] 20 mg IV BID 12/06/16 12/06/16 History Lactulose Liquid [Chronulac] 30 ml PO DAILY PRN 12/06/16 12/06/16 History Ondansetron Inj [Zofran Inj] 4 mg IV Q4H PRN vial 12/06/16 12/06/16 Rx Silver Sulfadiazine 1% Cream 1 applic TOP DAILY 12/06/16 12/06/16 History [Silvadene 1% Cream] cloNIDine HCl [Clonidine HCl] 0.1 mg PO Q6HR PRN 12/06/16 12/06/16 History Allergies Allergy/AdvReac Type Severity Reaction Status Date / Time No Known Allergies Allergy Verified 03/11/16 15:24 Medical,Surgical,& Family Hx - Medical History Cardio: History of: Aneurysm (Aortic (1967)), Hypertension Psychological: No history of: Anxiety Disorders, ADHD, Behavior Problems, Bipolar Disorder, Depression, Previous Suicide Attempt, Psychiatric/Substance Abuse Tx, Schizophrenia, Violent Behavior, Psychiatric Problems Neurology: History of: Vertigo HEENT: History of: Ear Problem Rheumatology: History of;: Rheumatoid Arthritis Respiratory: History of: Respiratory Problems (non-specific per family) Genitourinary: History of: Genitourinary Cancer (Bladder Cancer (2011)), Problems (status post cystectomy for bladder cancer) Gastrointestinal: History of: GERD Hematology: History of: Blood Disorders (myelodysplastic syndrome) - Surgical History Thoracic Surgeries: Patient denies;: Organ Transplant HEENT Surgeries: Surgical HX of: Eye Surgery (Cataract Surgery), Tonsilectomy & Adenoidectomy (removed at age 6) Abdominal Surgeries: Surgical HX of: Appendectomy, Cholecystectomy, Colonoscopy , Hernia Repair Reproductive Surgeries: Surgical HX of;: Genitourinary Surgery (urostomy (2011)) , Prostate Surgery (removed (2011)) - Family History Family History: Denies;: Family Hypertension - Social History Smoking Status: Never smoker Frequency of Alcohol Use: Occasionally Type of Drug Use: None Exam - Constitutional Vitals: Period Temp Pulse Resp BP Sys/Faulkner Pulse Ox Last 24 Hr 97.4 F-100.0 F 81-92 - 112-137/63-75 91-94 Results - Labs CBC & BMP: 12/07/16 06:20 12/07/16 06:20 Quality Measures - VTE Contraindication to Pharmacological VTE Prophylaxis: Thrombocytopenia
[2016-12-07] MEDS: PANTOPRAZOLE 40 MG TABLET PO SCH (09:58)
[2016-12-07 10:20] LABS: Bilirubin,Total 0.5 MG/DL (0.2-1.0); Potassium 4.5 MMOL/L (3.5-5.1); Total Protein 5.8 G/DL (6.4-8.3); Uric Acid 4.7 MG/DL (3.5-7.2)
[2016-12-07] MEDS ORDERED: SODIUM CHLORIDE 0.9% 250 ML IV PRN (11:48)
[2016-12-07] MEDS ORDERED: PROPOFOL 200 MG/20 ML VIAL IV ONE (12:00)
[2016-12-07] MEDS ORDERED: BUPIVACAINE 0.25% /EPI 10 ML VIAL ONE (13:19)
[2016-12-07] MEDS ORDERED: LIDOCAINE 1%/EPI INJ 20 ML VIAL ONE (13:19)
[2016-12-07] MEDS ORDERED: fentaNYL 100 MCG/2 ML VIAL ONE (13:50)
[2016-12-07] MEDS ORDERED: KETAMINE 500 MG/10 ML VIAL ONE (14:40)
--- NOTE | 2016-12-07 15:07 | Operative Note ---
Date of procedure: 12/07/16 Pre-op diagnosis: Necrotic wound right lower leg Post-op diagnosis: same Procedure: Preoperative diagnosis Necrotic wound right lower leg Postoperative diagnosis Same Procedure performed Excisional debridement of 200 cm of necrotic skin and subcutaneous tissue right leg Findings There was some fat necrosis and some infected fluid underneath the eschar of the skin and subcutaneous tissue on the right lower leg. Excisional debridement was performed with a scalpel and the fluid was cultured and sent to the lab. Complications None apparent Specimen Cultures Anesthesia Monitored with local Blood loss Minimal Indications Necrotic wound right lower leg Description of procedure The patient was taken to the operating room and transferred to the operating table in supine position. Pressure points were padded and monitored anesthesia was administered. The right lower leg was prepped with Betadine and draped sterilely. Timeout was called. Local anesthetic was administered on the border of the wound and excisional debridement was performed of 200 cm necrotic skin and subcutaneous tissue using a scalpel. The fascia was opened over the right lower leg wound and there was no dishwater fluid or evidence of necrotizing fasciitis. There was some necrosis of part of the muscle but did not need to be debrided at this time. Once all the debris was performed the skin and subcutaneous tissue wound was irrigated and packed with a Dakin's wet- to-dry dressing and the leg was wrapped. Patient was awakened from anesthesia and transferred to recovery. Postoperative plan Return to OR tomorrow for repeat washout and dressing change Anesthesia: MAC, local Surgeon / Physician: Compa Lott Estimated blood loss: minimal Specimens: other (cultures) Condition: stable Disposition: PACU Results - Labs CBC & BMP: 12/07/16 06:20 12/07/16 09:30 Discharge Plan - Discharge Medications No Action Potassium Chloride 10 meq PO DAILY Gabapentin 600 mg PO TID Acetaminophen Tab [Tylenol Tab] 650 mg PO Q4H PRN tablet PRN Reason: Fever, Headache, Mild Pain Ciprofloxacin Inj [Cipro Inj] 400 mg IV Q12H Levalbuterol Neb [Xopenex Neb] 1.25 mg RESP TX RT Q4H Vancomycin Inj 1,500 mg IV Q18H vial Ziprasidone Inj [Geodon Inj] 10 mg IM Q6H PRN vial PRN Reason: Agitation cloNIDine HCl [Clonidine HCl] 0.1 mg PO Q6HR PRN PRN Reason: Blood Pressure-Increased Bisacodyl Supp [Dulcolax Supp] 10 mg RECTAL DAILY PRN PRN Reason: Constipation Alum/Mag/Simeth Liquid [Mylanta Liquid] 30 ml PO RT Q6H PRN PRN Reason: Indigestion Ciprofloxacin Lactate/D5w [Ciprofloxacin Inj] 400 mg IV BID Famotidine Inj [Pepcid Inj] 20 mg IV BID Albuterol Sulfate [Albuterol Tab] 1 tablet PO QID Silver Sulfadiazine 1% Cream [Silvadene 1% Cream] 1 applic TOP DAILY Clorazepate [Tranxene] 1 tablet PO RT Q6H Lactulose Liquid [Chronulac] 30 ml PO DAILY PRN PRN Reason: Constipation - Follow Up or Referral - Forms/Instructions
--- NOTE | 2016-12-07 15:17 | EKG Report ---
Stationary ECG Study [facility] Test Date: 12/07/2016 1:33:17 PM Pat Name: RAMON HENAO Department: Room: 536 Gender: M Machine Tester: DOUGIE : [id number] Requested by: Compa Lott Order Number: [id number] Reading MD: SARBJIT LEDESMA Intervals [place] Rate: 102 P: 74 DE: 165 QRS: 43 QRSD: 104 T: 76 QT: 345 QTc: 404 Interpretive Statements SINUS TACHYCARDIA POOR QUALITY TRACING Electronically Signed On 12-08-16 16:09:57 CDT by SARBJIT LEDESMA [email or web address]
[2016-12-07] MEDS ORDERED: ALUMINUM/MAGNES/SIMETH MAX STR 30 ML UDCUP PO PRN (15:43)
[2016-12-07] MEDS ORDERED: ZIPRASIDONE 20 MG/1 ML VIAL IM PRN (15:43)
[2016-12-07] MEDS ORDERED: LACTULOSE 20 GM/30 ML UDCUP PO PRN (15:43)
[2016-12-07] MEDS ORDERED: ACETAMINOPHEN 325 MG TABLET PO PRN (15:43)
[2016-12-07] MEDS ORDERED: cloNIDine 0.1 MG TABLET PO PRN (15:43)
[2016-12-07] MEDS ORDERED: BISACODYL 10 MG SUPP RECTAL PRN (15:43)
[2016-12-07] MEDS: CLORAZEPATE 3.75 MG TABLET PO SCH ×2 (16:45→20:59)
[2016-12-07] MEDS: VANCOMYCIN INJ 1,500 MG in SODIUM CHLORIDE 0.9% 500 ML IV SCH (16:45)
[2016-12-07] MEDS: ALBUTEROL 2 MG TABLET PO SCH ×2 (16:45→20:55)
[2016-12-07] MEDS: PIPERACILLIN/TAZOBACTAM 3,375 MG in SODIUM CHLORIDE 0.9% 100 ML IV SCH ×2 (16:46→23:20)
[2016-12-07] MEDS: ALBUTEROL 2.5 MG/3 ML NEB RESP TX SCH ×2 (19:10→23:20)
[2016-12-07] MEDS: GABAPENTIN 600 MG TABLET PO SCH (20:55)
[2016-12-07] MEDS: FAMOTIDINE 20 MG/2 ML VIAL IV SCH (20:55)
[2016-12-08] MEDS: ALBUTEROL 2.5 MG/3 ML NEB RESP TX SCH ×6 (03:20→23:17)
[2016-12-08] MEDS: CLORAZEPATE 3.75 MG TABLET PO SCH ×5 (04:39→20:50)
[2016-12-08 06:07] LABS: Eosinophils # 0.1 10*3/uL (0.0-0.87); Eosinophils % 2.8 % (0.00-10.9); Hematocrit 23.9 VOL% (42.0-52.0); Hemoglobin 8.3 GM/DL (14.0-18.0); Immature Granulocytes % 1.2 %; Immature Granulocytes Absolute 0.03 #; Lymphocytes # 0.7 10*3/uL (1.4-4.0); Mean Corpuscular HGB Conc 34.7 GM/DL (32-36); Mean Corpuscular Hemoglobin 34 PG (27-34); Mean Corpuscular Volume 96.8 FL (87-102); Mean Platelet Volume 9.6 FL (9.6-12.0); Monocytes # 0.2 10*3/uL (0.11-0.8); Monocytes % 5.9 % (1.7-12.7); Neutrophils # 1.6 10*3/uL (1.4-7.4); Neutrophils % 62.1 % (38.7-73.9); Platelet Count 51 T/CUMM (130-400); Red Blood Count 2.47 MC/CUMM (3.8-5.5); Red Cell Distribution Width 14.8 % (9.3-17.3); White Blood Count 2.5 T/CUMM (4-12)
[2016-12-08] MEDS ORDERED: BUPIVACAINE 0.25% 50 ML VIAL ONE (06:25)
[2016-12-08 06:30] LABS: Band Neutrophils 1 % (0-10); Lymphocytes 28 % (20-55); Segmented Neutrophils 67 % (50-85); Total Cells Counted 100
[2016-12-08 06:31] LABS: Hypochromasia 1+; Microcytosis 1+
[2016-12-08 06:32] LABS: Platelet Estimate Decreased
[2016-12-08 07:06] LABS: Bilirubin,Total 0.5 MG/DL (0.2-1.0); Calcium 7.9 MG/DL (8.5-10.1); Osmolality,Calculated 274.7 MOS/KG (273-304); Potassium 4.1 MMOL/L (3.5-5.1); Total Protein 5.8 G/DL (6.4-8.3)
[2016-12-08] MEDS ORDERED: SEVOFLURANE 1 UNIT/15 MINUTE INH ONE (08:13)
[2016-12-08] MEDS ORDERED: PROPOFOL 200 MG/20 ML VIAL IV ONE (08:13)
[2016-12-08] MEDS ORDERED: ePHEDrine 50 MG/ML AMP ONE (08:14)
[2016-12-08] MEDS ORDERED: fentaNYL 100 MCG/2 ML VIAL ONE (08:14)
[2016-12-08] MEDS ORDERED: MIDAZOLAM 2 MG/2 ML VIAL ONE (08:14)
[2016-12-08] MEDS ORDERED: ONDANSETRON 4 MG/2 ML VIAL ONE (08:15)
[2016-12-08] MEDS: INSULIN REGULAR 100 UNIT/ML SUBCUT SCH ×4 (09:35→20:46)
[2016-12-08] MEDS: PIPERACILLIN/TAZOBACTAM 3,375 MG in SODIUM CHLORIDE 0.9% 100 ML IV SCH ×3 (09:35→23:30)
[2016-12-08] MEDS: ALBUTEROL 2 MG TABLET PO SCH ×4 (09:36→20:48)
[2016-12-08] MEDS: GABAPENTIN 600 MG TABLET PO SCH ×3 (09:36→20:49)
[2016-12-08] MEDS: FAMOTIDINE 20 MG/2 ML VIAL IV SCH ×2 (09:37→20:48)
[2016-12-08] MEDS: PANTOPRAZOLE 40 MG TABLET PO SCH (09:37)
--- NOTE | 2016-12-08 11:46 | Anesthesia Post-Op ---
Anesthesia Post OP - Post Ansesthetic Evaluation Patient seen in post op: Yes Resp: within normal limits CV: within normal limits Mental: within normal limits Temp: within normal limits [id number]-[id number]: within normal limits Nausea and Vomiting: within normal limits Pain: within normal limits
--- NOTE | 2016-12-08 12:04 | Operative Note ---
Date of procedure: 12/08/16 Pre-op diagnosis: Open wound right lower leg Post-op diagnosis: same Procedure: Preoperative diagnosis Open wound right lower leg Postoperative diagnosis Same Procedures performed 1. Washout of right lower leg wound 2. Excisional debridement of right lower leg wound sub-cutaneous tissue measuring 10 cm of necrotic subcutaneous fat with scalpel and electrocautery Findings The wound overall looks very healthy. The washout was performed and there was some additional necrotic fat was excised. The muscle twitch nicely today and there was no evidence of muscle needed to be debrided Complications None apparent Specimen None Anesthesia General LMA Blood loss Minimal Indications Open wound right lower leg Description of procedure The patient was taken to the operating room and transferred to the operating table in the supine position. Pressure points were padded and SCDs were placed to the left lower extremity. General LMA anesthesia was administered. The right leg was prepped with Betadine and draped sterilely. Preoperative antibiotics were administered, and a timeout was performed. The dressings were all taken down and a washout was performed on the right leg wound. Overall this looked pretty healthy and there was no major necrotic tissue needed to be debrided. There was some pretty extensive surrounding cellulitis present leg but these areas were all probed and there was no significant undermining or undrained infection or necrotic tissue. There was some additional necrotic subcutaneous fat that was debrided measuring 10 cm with a scalpel and cautery. The wound was then dressed after washing out with a Dakin's wet-to-dry dressing and wrapped with her legs and Coban. The patient was awakened from anesthesia and transferred back to his hospital bed and taken to recovery in stable condition. Postoperative plan Continue wound care and antibiotics Anesthesia: MIRIAM Surgeon / Physician: Compa Lott Estimated blood loss: minimal Specimens: none sent Condition: stable Disposition: PACU Results - Labs CBC & BMP: 12/08/16 05:52 12/08/16 05:52 Discharge Plan - Discharge Medications No Action Potassium Chloride 10 meq PO DAILY Gabapentin 600 mg PO TID Acetaminophen Tab [Tylenol Tab] 650 mg PO Q4H PRN tablet PRN Reason: Fever, Headache, Mild Pain Ciprofloxacin Inj [Cipro Inj] 400 mg IV Q12H Levalbuterol Neb [Xopenex Neb] 1.25 mg RESP TX RT Q4H Vancomycin Inj 1,500 mg IV Q18H vial Ziprasidone Inj [Geodon Inj] 10 mg IM Q6H PRN vial PRN Reason: Agitation cloNIDine HCl [Clonidine HCl] 0.1 mg PO Q6HR PRN PRN Reason: Blood Pressure-Increased Bisacodyl Supp [Dulcolax Supp] 10 mg RECTAL DAILY PRN PRN Reason: Constipation Alum/Mag/Simeth Liquid [Mylanta Liquid] 30 ml PO RT Q6H PRN PRN Reason: Indigestion Ciprofloxacin Lactate/D5w [Ciprofloxacin Inj] 400 mg IV BID Famotidine Inj [Pepcid Inj] 20 mg IV BID Albuterol Sulfate [Albuterol Tab] 1 tablet PO QID Silver Sulfadiazine 1% Cream [Silvadene 1% Cream] 1 applic TOP DAILY Clorazepate [Tranxene] 1 tablet PO RT Q6H Lactulose Liquid [Chronulac] 30 ml PO DAILY PRN PRN Reason: Constipation - Follow Up or Referral - Forms/Instructions
[2016-12-08] MEDS: VANCOMYCIN INJ 1,500 MG in SODIUM CHLORIDE 0.9% 500 ML IV SCH (13:01)
--- NOTE | 2016-12-08 18:47 | Event Note ---
General Surgery Progress Note Chief complaint This patient is a 81-year-old man with AML on chemotherapy admitted with necrotic wound right lower leg treated with excisional debridement and second look washout on 12/07/2016 and 12/08/2016 Interval history The patient is resting well currently. No complaints. Pain is well controlled. Physical exam The patient is afebrile with normal vital signs His right leg wound dressing is clean Labs None new Imaging None Assessment and plan Continue local wound care and antibiotics Follow-up cultures from 12/07/2016 OR drainage of fluid in necrotic wound Elevate right leg
[2016-12-09] MEDS: VANCOMYCIN INJ 1,500 MG in SODIUM CHLORIDE 0.9% 500 ML IV SCH ×2 (03:09→22:22)
[2016-12-09] MEDS: CLORAZEPATE 3.75 MG TABLET PO SCH ×5 (03:09→20:32)
[2016-12-09] MEDS: ALBUTEROL 2.5 MG/3 ML NEB RESP TX SCH ×6 (03:41→23:47)
[2016-12-09 06:43] LABS: Eosinophils # 0.1 10*3/uL (0.0-0.87); Eosinophils % 4.2 % (0.00-10.9); Hematocrit 22.7 VOL% (42.0-52.0); Hemoglobin 7.6 GM/DL (14.0-18.0); Immature Granulocytes % 0.5 %; Immature Granulocytes Absolute 0.01 #; Lymphocytes # 0.8 10*3/uL (1.4-4.0); Lymphocytes % 41.8 % (21.2-54.2); Mean Corpuscular HGB Conc 33.5 GM/DL (32-36); Mean Corpuscular Hemoglobin 34 PG (27-34); Mean Corpuscular Volume 100.4 FL (87-102); Monocytes # 0.1 10*3/uL (0.11-0.8); Monocytes % 6.9 % (1.7-12.7); Neutrophils # 0.9 10*3/uL (1.4-7.4); Neutrophils % 46.6 % (38.7-73.9); Platelet Count 48 T/CUMM (130-400); Red Blood Count 2.26 MC/CUMM (3.8-5.5); Red Cell Distribution Width 15.1 % (9.3-17.3); White Blood Count 1.9 T/CUMM (4-12)
[2016-12-09 07:05] LABS: Albumin 1.9 G/DL (3.4-5.0); Bilirubin,Total 0.8 MG/DL (0.2-1.0); Calcium 7.6 MG/DL (8.5-10.1); Osmolality,Calculated 279.3 MOS/KG (273-304); Potassium 3.7 MMOL/L (3.5-5.1); Total Protein 5.4 G/DL (6.4-8.3)
[2016-12-09 07:45] LABS: Eosinophils 4 % (0-10); Hypochromasia 2+; Lymphocytes 42 % (20-55); Microcytosis 2+; Segmented Neutrophils 52 % (50-85); Total Cells Counted 100
[2016-12-09 07:46] LABS: Platelet Estimate Decreased
[2016-12-09] MEDS: INSULIN REGULAR 100 UNIT/ML SUBCUT SCH ×4 (07:50→21:46)
[2016-12-09] MEDS: PANTOPRAZOLE 40 MG TABLET PO SCH (09:08)
[2016-12-09] MEDS: PIPERACILLIN/TAZOBACTAM 3,375 MG in SODIUM CHLORIDE 0.9% 100 ML IV SCH ×2 (09:09→15:22)
[2016-12-09] MEDS: GABAPENTIN 600 MG TABLET PO SCH ×3 (09:09→20:30)
[2016-12-09] MEDS: ALBUTEROL 2 MG TABLET PO SCH ×5 (09:09→20:30)
[2016-12-09] MEDS: FAMOTIDINE 20 MG/2 ML VIAL IV SCH ×2 (09:09→21:32)
--- NOTE | 2016-12-09 10:34 | General Surgery Progress Note ---
Assessment and Plan (1) Cellulitis of right leg Problem details: Ruptured bullous lesion along proximal calf. Lower right calf bullous lesion intact still fluid-filled. Status: Acute Assessment and plan: Status post debridement right lower extremity next Plan: Continue local wound care. May need repeat debridement in the future. Current Visit: No Subjective Patient reports: Present: no new complaints Exam - Constitutional Vitals: Period Temp Pulse Resp BP Sys/Faulkner Pulse Ox Last 24 Hr 97.0 F-98.3 F 80-89 18-20 100-110/59-80 88-99 General appearance: no acute distress - Head Head exam: Present: normocephalic - ENT Mouth exam: Present: normal external inspection - Neck Neck exam: Present: normal inspection - Respiratory Respiratory exam: Present: clear to auscultation bilaterally - Cardiovascular Cardiovascular exam: Present: RRR - GI/Abdominal GI/Abdominal exam: Present: soft - Extremities Exam Extremities exam: Present: other (Right lower extremity dressing removed. Minimal nonviable tissue present. No significant granulation tissue yet.) Results - Labs CBC & BMP: 12/09/16 05:58 12/09/16 05:58 Lab Results: I have reviewed the past 24 hour labs Quality Measures - VTE Contraindication to Pharmacological VTE Prophylaxis: Thrombocytopenia
[2016-12-10] MEDS: PIPERACILLIN/TAZOBACTAM 3,375 MG in SODIUM CHLORIDE 0.9% 100 ML IV SCH ×3 (02:41→18:36)
[2016-12-10] MEDS: ALBUTEROL 2.5 MG/3 ML NEB RESP TX SCH ×6 (03:04→23:59)
[2016-12-10] MEDS: CLORAZEPATE 3.75 MG TABLET PO SCH ×4 (03:25→21:51)
[2016-12-10 07:21] LABS: Eosinophils # 0.1 10*3/uL (0.0-0.87); Eosinophils % 4.7 % (0.00-10.9); Hematocrit 22.3 VOL% (42.0-52.0); Hemoglobin 7.4 GM/DL (14.0-18.0); Immature Granulocytes % 1.4 %; Immature Granulocytes Absolute 0.03 #; Lymphocytes # 0.8 10*3/uL (1.4-4.0); Lymphocytes % 35.5 % (21.2-54.2); Mean Corpuscular HGB Conc 33.2 GM/DL (32-36); Mean Corpuscular Hemoglobin 33 PG (27-34); Mean Platelet Volume 10.4 FL (9.6-12.0); Monocytes # 0.2 10*3/uL (0.11-0.8); Monocytes % 8.4 % (1.7-12.7); Neutrophils # 1.1 10*3/uL (1.4-7.4); Platelet Count 50 T/CUMM (130-400); Red Blood Count 2.23 MC/CUMM (3.8-5.5); White Blood Count 2.1 T/CUMM (4-12)
[2016-12-10 07:37] LABS: Albumin 1.9 G/DL (3.4-5.0); Bilirubin,Total 0.8 MG/DL (0.2-1.0); Calcium 7.2 MG/DL (8.5-10.1); Osmolality,Calculated 278.3 MOS/KG (273-304); Potassium 3.3 MMOL/L (3.5-5.1); Total Protein 5.3 G/DL (6.4-8.3)
[2016-12-10] MEDS: INSULIN REGULAR 100 UNIT/ML SUBCUT SCH ×4 (07:53→22:53)
[2016-12-10 09:23] LABS: Hypochromasia 2+; Lymphocytes 33 % (20-55); Microcytosis 2+; Platelet Estimate Decreased; Segmented Neutrophils 65 % (50-85); Total Cells Counted 100
[2016-12-10] MEDS: ALBUTEROL 2 MG TABLET PO SCH ×5 (09:39→21:31)
[2016-12-10] MEDS: GABAPENTIN 600 MG TABLET PO SCH ×3 (09:39→21:51)
[2016-12-10] MEDS: PANTOPRAZOLE 40 MG TABLET PO SCH (09:40)
[2016-12-10] MEDS: FAMOTIDINE 20 MG/2 ML VIAL IV SCH ×2 (09:40→21:51)
--- NOTE | 2016-12-10 11:37 | General Surgery Progress Note ---
Assessment and Plan (1) Cellulitis of right leg Problem details: Ruptured bullous lesion along proximal calf. Lower right calf bullous lesion intact still fluid-filled. Status: Acute Assessment and plan: Status post debridement right lower extremity next Plan: Continue local wound care. May need repeat debridement in the future. Current Visit: No Subjective Patient reports: Present: no new complaints Exam - Constitutional Vitals: Period Temp Pulse Resp BP Sys/Faulkner Pulse Ox Last 24 Hr 97.3 F-98.5 F 59-101 16-20 97-121/55-79 91-99 General appearance: no acute distress - Head Head exam: Present: normocephalic - ENT Mouth exam: Present: normal external inspection - Neck Neck exam: Present: normal inspection - Cardiovascular Cardiovascular exam: Present: RRR - GI/Abdominal GI/Abdominal exam: Present: soft - Extremities Exam Extremities exam: Present: other (Right lower extremity fairly clean. There is some nonviable tissue present. Muscle appears dark but not necrotic.) - Neurological Exam Neurological exam: Present: alert, oriented X3 Speech: Present: normal - Skin Skin exam: Present: normal color Results - Labs CBC & BMP: 12/10/16 05:52 12/10/16 05:52 Lab Results: I have reviewed the past 24 hour labs Quality Measures - VTE Contraindication to Pharmacological VTE Prophylaxis: Thrombocytopenia
[2016-12-10] MEDS: VANCOMYCIN INJ 1,500 MG in SODIUM CHLORIDE 0.9% 500 ML IV SCH (15:52)
[2016-12-11] MEDS: PIPERACILLIN/TAZOBACTAM 3,375 MG in SODIUM CHLORIDE 0.9% 100 ML IV SCH ×3 (02:05→21:14)
[2016-12-11] MEDS: CLORAZEPATE 3.75 MG TABLET PO SCH ×4 (03:52→21:21)
[2016-12-11] MEDS: ALBUTEROL 2.5 MG/3 ML NEB RESP TX SCH ×6 (04:02→23:54)
[2016-12-11 06:39] LABS: Basophils % 0.5 % (0.0-0.8); Eosinophils # 0.1 10*3/uL (0.0-0.87); Eosinophils % 7.1 % (0.00-10.9); Hematocrit 20.4 VOL% (42.0-52.0); Immature Granulocytes % 1.1 %; Immature Granulocytes Absolute 0.02 #; Lymphocytes # 0.7 10*3/uL (1.4-4.0); Lymphocytes % 35.5 % (21.2-54.2); Mean Corpuscular HGB Conc 34.3 GM/DL (32-36); Mean Corpuscular Hemoglobin 34 PG (27-34); Mean Corpuscular Volume 97.6 FL (87-102); Mean Platelet Volume 10.7 FL (9.6-12.0); Monocytes # 0.2 10*3/uL (0.11-0.8); Monocytes % 8.2 % (1.7-12.7); Neutrophils # 0.9 10*3/uL (1.4-7.4); Neutrophils % 47.6 % (38.7-73.9); Platelet Count 55 T/CUMM (130-400); Red Blood Count 2.09 MC/CUMM (3.8-5.5); White Blood Count 1.8 T/CUMM (4-12)
[2016-12-11 07:02] LABS: Alanine Aminotransferase 79 U/L (16-61); Albumin 1.9 G/DL (3.4-5.0); Alkaline Phosphatase 78 U/L (45-117); Aspartate Amino Transferase 36 U/L (0-37); Bilirubin,Total < 0.39 MG/DL (0.2-1.0); Blood Urea Nitrogen 6 MG/DL (7-18); Calcium 7.4 MG/DL (8.5-10.1); Glucose 127 MG/DL (74-106); Potassium 3.1 MMOL/L (3.5-5.1); Sodium 143 MMOL/L (136-145); Total Protein 5.3 G/DL (6.4-8.3)
[2016-12-11 07:03] LABS: Band Neutrophils 2 % (0-10); Eosinophils 6 % (0-10); Lymphocytes 36 % (20-55); Platelet Estimate Decreased; Segmented Neutrophils 54 % (50-85); Total Cells Counted 100
[2016-12-11 07:04] LABS: Hypochromasia 1+; Microcytosis 1+; Ovalocytes Slight
[2016-12-11] MEDS: INSULIN REGULAR 100 UNIT/ML SUBCUT SCH ×4 (07:44→21:20)
[2016-12-11] MEDS: ALBUTEROL 2 MG TABLET PO SCH ×4 (09:28→21:20)
[2016-12-11] MEDS: PANTOPRAZOLE 40 MG TABLET PO SCH (09:28)
[2016-12-11] MEDS: GABAPENTIN 600 MG TABLET PO SCH ×3 (09:28→21:21)
[2016-12-11] MEDS: FAMOTIDINE 20 MG/2 ML VIAL IV SCH ×2 (09:31→21:17)
[2016-12-11] MEDS: VANCOMYCIN INJ 1,500 MG in SODIUM CHLORIDE 0.9% 500 ML IV SCH (09:38)
--- NOTE | 2016-12-11 10:14 | Event Note ---
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 Hemoglobin is down to 7 today but platelet count is still above 50,000. Patient is asymptomatic as far as I can tell from this. Wound care has been performed over the weekend. Cultures from the OR are negative. This was likely just fat necrosis. Physical exam The patient is afebrile with normal vital signs His right leg wound has a small rim of reactive erythema but no evidence of undrained invasive infection. There is some sloughing tissue on the wound edges. Labs Reviewed, as above Imaging None Assessment and plan Continue local wound care and antibiotics Management of pancytopenia per oncology Repeat labs tomorrow Discharge planning
[2016-12-11] MEDS: COLLAGENASE OINT 30 GM TUBE TOP SCH (11:15)
[2016-12-11] MEDS: POTASSIUM CHLORIDE 20 MEQ TABLET PO PRN ×4 (12:20→19:22)
[2016-12-12 00:51] LABS: Eosinophils # 0.1 10*3/uL (0.0-0.87); Eosinophils % 6.8 % (0.00-10.9); Hematocrit 20.5 VOL% (42.0-52.0); Immature Granulocytes % 0.5 %; Immature Granulocytes Absolute 0.01 #; Lymphocytes # 0.9 10*3/uL (1.4-4.0); Lymphocytes % 42.9 % (21.2-54.2); Mean Corpuscular HGB Conc 34.1 GM/DL (32-36); Mean Corpuscular Hemoglobin 33 PG (27-34); Mean Corpuscular Volume 97.2 FL (87-102); Mean Platelet Volume 9.9 FL (9.6-12.0); Monocytes # 0.1 10*3/uL (0.11-0.8); Monocytes % 6.8 % (1.7-12.7); Neutrophils # 0.9 10*3/uL (1.4-7.4); Platelet Count 45 T/CUMM (130-400); Red Blood Count 2.11 MC/CUMM (3.8-5.5); Red Cell Distribution Width 15.3 % (9.3-17.3); White Blood Count 2.1 T/CUMM (4-12)
[2016-12-12 01:15] LABS: Band Neutrophils 1 % (0-10); Eosinophils 3 % (0-10); Lymphocytes 35 % (20-55); Myelocytes 3 %; Segmented Neutrophils 58 % (50-85); Total Cells Counted 100
[2016-12-12 01:17] LABS: Anisocytosis 1+; Platelet Estimate Decreased
[2016-12-12 01:27] LABS: Bilirubin,Total 0.8 MG/DL (0.2-1.0); Calcium 7.6 MG/DL (8.5-10.1); Potassium 3.9 MMOL/L (3.5-5.1); Total Protein 5.4 G/DL (6.4-8.3)
[2016-12-12] MEDS: VANCOMYCIN INJ 1,500 MG in SODIUM CHLORIDE 0.9% 500 ML IV SCH ×2 (03:04→21:04)
[2016-12-12] MEDS: ALBUTEROL 2.5 MG/3 ML NEB RESP TX SCH ×6 (03:33→23:52)
[2016-12-12] MEDS: CLORAZEPATE 3.75 MG TABLET PO SCH ×4 (03:58→21:07)
[2016-12-12] MEDS: POTASSIUM CHLORIDE 20 MEQ TABLET PO PRN (03:59)
[2016-12-12] MEDS: PIPERACILLIN/TAZOBACTAM 3,375 MG in SODIUM CHLORIDE 0.9% 100 ML IV SCH ×2 (05:22→17:29)
--- NOTE | 2016-12-12 07:21 | Event Note ---
General Surgery Progress Note Chief complaint This patient is a 81-year-old man with AML on chemotherapy admitted with necrotic wound right lower leg treated with excisional debridement and second look washout on 12/07/2016 and 12/08/2016 Interval history No events overnight. Blood counts reviewed. Hemoglobin is the same. Platelet count has gone down some. Physical exam The patient is afebrile with normal vital signs His right leg wound has a small rim of reactive erythema but no evidence of undrained invasive infection. There is some sloughing tissue on the wound edges. Labs Reviewed, as above Imaging None Assessment and plan Continue local wound care and antibiotics Management of pancytopenia per oncology Repeat labs tomorrow Discharge planning, hopefully [facility]
[2016-12-12] MEDS ORDERED: SODIUM CHLORIDE 0.9% 250 ML IV PRN (07:53)
[2016-12-12] MEDS: INSULIN REGULAR 100 UNIT/ML SUBCUT SCH ×4 (07:55→21:07)
--- NOTE | 2016-12-12 07:55 | Oncology Progress Note ---
Assessment and Plan (1) Myelodysplasia (myelodysplastic syndrome) Status: Chronic Current Visit: No (2) Cellulitis Status: Chronic Current Visit: No (3) AML (acute myeloblastic leukemia) Status: Chronic Current Visit: No Oncology Subjective PN Interval history: Mr. Alexander seems to be doing well this morning. His hemoglobin is stable at 7. He is being evaluated for likely swing bed or rehab placement. I think it would be verdin to give him 2 units of blood to be certain that he does well with rehab. There is no further plans for debridement of his right calf. I told him that once he is done with rehab or swing bed, I will see him back in clinic and we can resume his Dacogen therapy. Exam - Constitutional Vitals: Period Temp Pulse Resp BP Sys/Faulkner Pulse Ox Last 24 Hr 96.4 F-99.4 F 78-89 16-20 109-133/65-79 92-100 General appearance: normal weight, no acute distress - Head Head Exam: Present: normocephalic, atraumatic - Eye Eye Exam: Present: EOMI Pupils: Present: PERRL - ENT ENT exam: Present: normal exam, normal oropharynx - Neck Neck exam: Absent: lymphadenopathy, thyromegaly - Respiratory Respiratory exam: Present: CTAB. Absent: wheezes - Cardiovascular Cardiovascular exam: Present: RRR. Absent: JVD - GI/Abdominal GI/Abdominal exam: Present: soft. Absent: ascites, distended, firm, mass - Neurological Exam Neurological exam: Present: alert, oriented X3 Results - Labs CBC & BMP: 12/12/16 00:43 12/12/16 00:43 Lab Results: I have reviewed the past 24 hour labs Quality Measures - VTE Contraindication to Pharmacological VTE Prophylaxis: Thrombocytopenia
[2016-12-12] MEDS: GABAPENTIN 600 MG TABLET PO SCH ×3 (09:14→21:07)
[2016-12-12] MEDS: FAMOTIDINE 20 MG/2 ML VIAL IV SCH ×2 (09:14→21:09)
[2016-12-12] MEDS: PANTOPRAZOLE 40 MG TABLET PO SCH (09:15)
[2016-12-12] MEDS: ALBUTEROL 2 MG TABLET PO SCH ×4 (09:15→21:07)
[2016-12-12] MEDS: COLLAGENASE OINT 30 GM TUBE TOP SCH (09:15)
[2016-12-12 19:43] LABS: Hematocrit 26.6 VOL% (42.0-52.0); Hemoglobin 9.2 GM/DL (14.0-18.0)
[2016-12-13] MEDS: PIPERACILLIN/TAZOBACTAM 3,375 MG in SODIUM CHLORIDE 0.9% 100 ML IV SCH ×2 (01:34→09:53)
[2016-12-13] MEDS: ALBUTEROL 2.5 MG/3 ML NEB RESP TX SCH ×3 (03:26→10:35)
[2016-12-13] MEDS: CLORAZEPATE 3.75 MG TABLET PO SCH ×2 (03:59→09:52)
[2016-12-13 07:34] LABS: Eosinophils # 0.2 10*3/uL (0.0-0.87); Hematocrit 27.7 VOL% (42.0-52.0); Hemoglobin 9.5 GM/DL (14.0-18.0); Immature Granulocytes % 0.5 %; Immature Granulocytes Absolute 0.01 #; Lymphocytes # 0.7 10*3/uL (1.4-4.0); Lymphocytes % 33.3 % (21.2-54.2); Mean Corpuscular HGB Conc 34.3 GM/DL (32-36); Mean Corpuscular Hemoglobin 33 PG (27-34); Mean Corpuscular Volume 95.2 FL (87-102); Mean Platelet Volume 10.1 FL (9.6-12.0); Monocytes # 0.2 10*3/uL (0.11-0.8); Neutrophils % 49.2 % (38.7-73.9); Platelet Count 45 T/CUMM (130-400); Red Blood Count 2.91 MC/CUMM (3.8-5.5); Red Cell Distribution Width 15.9 % (9.3-17.3)
--- NOTE | 2016-12-13 07:41 | Event Note ---
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 Responded appropriately. No issues overnight. Physical exam The patient is afebrile with normal vital signs His right leg wound has a small rim of reactive erythema but no evidence of undrained invasive infection. This is improved from yesterday. Wound is slightly sleepy this morning there is no pus or infection. There is no foul odor. Labs Reviewed Imaging None Assessment and plan Continue local wound care Transition to p.o. antibiotics Discharge planning, the nurses tell me that we are having some issues with placement but we will continue to look at the options
[2016-12-13 08:01] LABS: Band Neutrophils 1 % (0-10); Eosinophils 8 % (0-10); Hypochromasia 1+; Lymphocytes 33 % (20-55); Ovalocytes Slight; Platelet Estimate Decreased; Segmented Neutrophils 51 % (50-85); Total Cells Counted 100
[2016-12-13 08:02] LABS: Microcytosis Slight
[2016-12-13 08:12] LABS: Albumin 2.2 G/DL (3.4-5.0); Bilirubin,Total 0.8 MG/DL (0.2-1.0); Calcium 8.6 MG/DL (8.5-10.1); Osmolality,Calculated 277.3 MOS/KG (273-304); Potassium 4.2 MMOL/L (3.5-5.1); Total Protein 6.2 G/DL (6.4-8.3)
[2016-12-13] MEDS: INSULIN REGULAR 100 UNIT/ML SUBCUT SCH ×2 (08:46→11:33)
[2016-12-13] MEDS: GABAPENTIN 600 MG TABLET PO SCH (09:51)
[2016-12-13] MEDS: ALBUTEROL 2 MG TABLET PO SCH ×2 (09:52→15:05)
[2016-12-13] MEDS: FAMOTIDINE 20 MG/2 ML VIAL IV SCH (09:52)
[2016-12-13] MEDS: PANTOPRAZOLE 40 MG TABLET PO SCH (09:52)
[2016-12-13] MEDS: COLLAGENASE OINT 30 GM TUBE TOP SCH (11:17)
--- NOTE | 2016-12-13 12:58 | Discharge Summary ---
Hospital Course - Hospital Course Hospital Course: Mr. Alexander is an 81-year-old white male with history of AML and hypertension admitted by Dr. Lott on 12/06/2016 as a transfer from [facility] for worsening right lower extremity wound. He developed a necrotic eschar over the medial right lower leg. He was started on IV antibiotics and taken to the operating room on 12/07/2016 for excisional debridement and on 12/08/2016 for washout and further debridement. Patient has done well postoperatively. Dr. Roger from oncology has been following the patient as well. Due to his low blood counts and pancytopenia he was given 2 units of blood yesterday and patient did respond appropriately. Today his right leg wound has a small rim of reactive erythema but no evidence of invasive infection. This seems to be improved from yesterday. Patient will be transitioned to p.o. antibiotics and he will receive local wound care. He is being transferred to [facility] rehab today for further rehabilitation. Care coordination, chart review, and completed discharge paperwork took approximately 36 minutes. - Time spent with patient Time with patient DS: Greater than 30 minutes Diagnosis - Discharge Diagnosis (1) Right lower extremity wound infection Status: Resolved (2) Pancytopenia, acquired Status: Chronic (3) AML (acute myeloblastic leukemia) Status: Chronic Discharge Plan - Discharge Data Condition at Discharge: Stable Discharge Diet: advance to your usual diet Activity: as per physical therapy Hygiene: may shower Driving: not until seen by doctor Contact your physician if you experience:: fever over 101, Redness or swelling Wound / Dressing Care Instructions: Right leg wound: Remove dressing and clean wound twice daily with Hibiclens and rinsed thoroughly with normal saline. Apply moistened Kerlix to the wound covered by dry gauze, ABD, cast padding, and co-band. Keep the leg elevated above the heart - Discharge Medications New Dextrose 50% [D50] 25 gm IV PRN PRN vial PRN Reason: Hypoglycemia with IV access Glucagon 1 mg IM PRN PRN vial PRN Reason: Hypoglycemia w/o IV access Insulin Regular [HumuLIN R] See Protocol SUBCUT ACHS unit Pantoprazole Tab [Protonix Tab] 40 mg PO DAILY tablet Clindamycin HCl [Clindamycin Cap] 300 mg PO QID #40 capsule HYDROcodone/ACETAMIN 7.5-325 [Wendell 7.5-325] 1 tablet PO Q4H PRN #30 tablet PRN Reason: Pain Moderate (4-7) Continue Potassium Chloride 10 meq PO DAILY Gabapentin 600 mg PO TID Acetaminophen Tab [Tylenol Tab] 650 mg PO Q4H PRN tablet PRN Reason: Fever, Headache, Mild Pain Levalbuterol Neb [Xopenex Neb] 1.25 mg RESP TX RT Q4H Ziprasidone Inj [Geodon Inj] 10 mg IM Q6H PRN vial PRN Reason: Agitation cloNIDine HCl [Clonidine HCl] 0.1 mg PO Q6HR PRN PRN Reason: Blood Pressure-Increased Bisacodyl Supp [Dulcolax Supp] 10 mg RECTAL DAILY PRN PRN Reason: Constipation Alum/Mag/Simeth Liquid [Mylanta Liquid] 30 ml PO RT Q6H PRN PRN Reason: Indigestion Famotidine Inj [Pepcid Inj] 20 mg IV BID Albuterol Sulfate [Albuterol Tab] 1 tablet PO QID Clorazepate [Tranxene] 1 tablet PO RT Q6H Lactulose Liquid [Chronulac] 30 ml PO DAILY PRN PRN Reason: Constipation Discontinued Ciprofloxacin Inj [Cipro Inj] 400 mg IV Q12H Vancomycin Inj 1,500 mg IV Q18H vial Ciprofloxacin Lactate/D5w [Ciprofloxacin Inj] 400 mg IV BID Ondansetron Inj [Zofran Inj] 4 mg IV Q4H PRN vial PRN Reason: Nausea Silver Sulfadiazine 1% Cream [Silvadene 1% Cream] 1 applic TOP DAILY - Follow Up or Referral Follow Up: Compa Lott MD [Physician] - (notify md of room number) Porfirio Roger MD [Physician] - (notify md of room number) - Forms/Instructions Exam - Constitutional Vitals: Period Temp Pulse Resp BP Sys/Faulkner Pulse Ox Last 24 Hr 96.8 F-98.8 F 79-99 16-20 95-152/52-84 92-100 Exam: 81-year-old white male, no acute distress, alert and oriented Chest clear CV regular rate and rhythm Abdomen soft and nontender Extremities with no edema, right leg wound with small rim of reactive erythema no evidence of infection, no foul odor Discharge Results Labs on day of discharge: Labs from last 24 hours 12/13/16 12/13/16 12/13/16 11:20 07:20 06:36 WBC RBC Hgb Hct MCV MCH MCHC RDW Plt Count MPV Neut % (Auto) Lymph % (Auto) Noble % (Auto) Eos % (Auto) Baso % (Auto) Neut # (Auto) Lymph # (Auto) Noble # (Auto) Eos # (Auto) Baso # (Auto) Total Counted Immature Gran % Nucleated RBC % Immature Gran # Segmented Neutrophils Band Neutrophils Lymphocytes Monocytes Eosinophils Basophils Nucleated RBCs # Platelet Estimate Hypochromasia Microcytosis Ovalocytes Morphology Comment Sodium 141 Potassium 4.2 Chloride 106 Carbon Dioxide 28 Anion Gap 11.2 BUN 6 L Creatinine 1.10 GFR Calculation 81 BUN/Creatinine Ratio 5.00 L Glucose 88 POC Glucose 125 H 103 Calculated Osmolality 277.3 Calcium 8.6 Total Bilirubin 0.80 AST 25 ALT 71 H Alkaline Phosphatase 89 Total Protein 6.2 L Albumin 2.2 L Globulin 4.0 H Albumin/Globulin Ratio 0.5 L Vancomycin Trough Blood Type Antibody Screen Crossmatch 12/13/16 12/12/16 12/12/16 06:36 20:04 19:35 WBC 2.0 L RBC 2.91 L D Hgb 9.5 L 9.2 L D Hct 27.7 L 26.6 L MCV 95.2 MCH 33 MCHC 34.3 RDW 15.9 Plt Count 45 L MPV 10.1 Neut % (Auto) 49.2 Lymph % (Auto) 33.3 Noble % (Auto) 9.0 Eos % (Auto) 8.0 Baso % (Auto) 0.0 Neut # (Auto) 1.0 L Lymph # (Auto) 0.7 L Noble # (Auto) 0.2 Eos # (Auto) 0.2 Baso # (Auto) 0.0 Total Counted 100 Immature Gran % 0.5 Nucleated RBC % 0.0 Immature Gran # 0.01 Segmented Neutrophils 51 Band Neutrophils 1 Lymphocytes 33 Monocytes 6 Eosinophils 8 Basophils 1.0 H Nucleated RBCs # 0.00 Platelet Estimate Decreased Hypochromasia 1+ Microcytosis Slight Ovalocytes Slight Morphology Comment Sodium Potassium Chloride Carbon Dioxide Anion Gap BUN Creatinine GFR Calculation BUN/Creatinine Ratio Glucose POC Glucose 108 H Calculated Osmolality Calcium Total Bilirubin AST ALT Alkaline Phosphatase Total Protein Albumin Globulin Albumin/Globulin Ratio Vancomycin Trough Blood Type Antibody Screen Crossmatch 12/12/16 12/12/16 12/12/16 19:35 15:50 00:41 WBC RBC Hgb Hct MCV MCH MCHC RDW Plt Count MPV Neut % (Auto) Lymph % (Auto) Noble % (Auto) Eos % (Auto) Baso % (Auto) Neut # (Auto) Lymph # (Auto) Noble # (Auto) Eos # (Auto) Baso # (Auto) Total Counted Immature Gran % Nucleated RBC % Immature Gran # Segmented Neutrophils Band Neutrophils Lymphocytes Monocytes Eosinophils Basophils Nucleated RBCs # Platelet Estimate Hypochromasia Microcytosis Ovalocytes Morphology Comment Sodium Potassium Chloride Carbon Dioxide Anion Gap BUN Creatinine GFR Calculation BUN/Creatinine Ratio Glucose POC Glucose 142 H Calculated Osmolality Calcium Total Bilirubin AST ALT Alkaline Phosphatase Total Protein Albumin Globulin Albumin/Globulin Ratio Vancomycin Trough 17.6 Blood Type O POSITIVE Antibody Screen Negative Crossmatch See Detail DS: Provider Date of admission: 12/06/16 20:27 Primary care physician: Delilah Quintana M.D. Attending physician on admission: Compa Lott MD Consults: 12/06/16 21:25 Consult to Anesthesiology [CONS] Routine Consulting Provider: Reason for Anesthesiology: Pre-op Clearance Consult to Physician [CONS] Routine Comment: randa patient, AML, chemotherapy Consulting Provider: Porfirio Roger Person Notified: MD BLANCHARD/NATACHA Date Notified: 12/07/16 Time Notified: 08:59 12/06/16 21:29 Consult to Pharmacy [CONS] Routine Reason for Pharmacy Consult: Dose/Manage Vancomycin 12/07/16 15:43 Consult to Anesthesiology [CONS] Routine Consulting Provider: Reason for Anesthesiology: Pre-op Clearance 12/11/16 10:01 Consult to Occupational Therapy [CONS] Routine Reason for Occupational Therapy: Evaluate and Treat PT [Consult to Physical Therapy] [CONS] Routine Reason for Physical Therapy: Evaluate and Treat 12/11/16 11:08 Consult to Wound Care - [place] [CONS] Routine Reason for Wound Care: Wound Care Management Consult Comment: for dressing change 12/12/16 18:46 Consult to Case Mgmt/Social Srvs [CONS] Routine Reason for Case Mgmt/Social Srvs: Other Consult Comment: will need Teflaro 600mg IV every 12 hours for 2 weeks. Discharging clinician: TERRENCE Hamilton Expected date of discharge: 12/13/16
[2016-12-13 13:55] VITALS: BP 114/74
[2016-12-13] MEDS: VANCOMYCIN INJ 1,500 MG in SODIUM CHLORIDE 0.9% 500 ML IV SCH (15:05)
== END 2016-12-13 15:49 | DRG 571 ==
LOC: N.5E 20:27
PROVIDERS: ADMIT Surgery; ATTEND Surgery

== ENCOUNTER 2018-05-03 09:56 | Inpatient (IN) ==
[2018-05-03] MEDS ORDERED: LACTULOSE 20 GM/30 ML UDCUP PO PRN (09:58)
[2018-05-03] MEDS ORDERED: ONDANSETRON 4 MG/2 ML VIAL IV PRN (09:58)
[2018-05-03] MEDS ORDERED: traMADol 50 MG TABLET PO PRN (09:58)
[2018-05-03] MEDS ORDERED: chlorproMAZINE INJ 25 MG in SODIUM CHLORIDE 0.9% 100 ML IV PRN (09:58)
[2018-05-03] MEDS ORDERED: LOPERAMIDE 2 MG CAPSULE PO PRN ×2 (09:58)
[2018-05-03] MEDS ORDERED: ALPRAZolam 0.25 MG TABLET PO PRN (09:58)
[2018-05-03] MEDS ORDERED: diphenhydrAMINE CAP 25 MG CAPSULE PO PRN (09:58)
[2018-05-03] MEDS ORDERED: PROMETHAZINE INJ 25 MG in SODIUM CHLORIDE 0.9% 50 ML IV PRN (09:58)
[2018-05-03] MEDS ORDERED: chlorproMAZINE INJ 50 MG in SODIUM CHLORIDE 0.9% 100 ML IV PRN (09:58)
[2018-05-03] MEDS ORDERED: guaiFENesin 200 MG/10 ML UDCUP PO PRN (09:58)
[2018-05-03] MEDS ORDERED: ALUMINUM/MAGNES/SIMETH MAX STR 30 ML UDCUP PO PRN (09:58)
[2018-05-03] MEDS ORDERED: MAGNESIUM HYDROXIDE SUSP 30 ML UDCUP PO PRN (09:58)
[2018-05-03] MEDS ORDERED: ACETAMINOPHEN 325 MG TABLET PO PRN (09:58)
[2018-05-03] MEDS ORDERED: chlorproMAZINE 25 MG TABLET PO PRN (09:58)
[2018-05-03] MEDS ORDERED: MYLANTA/LIDO VISC 2:1 300 ML BOTTLE SWISH/SWAL PRN (09:58)
[2018-05-03] MEDS ORDERED: TEMAZEPAM 7.5 MG CAPSULE PO PRN (09:58)
[2018-05-03] MEDS ORDERED: BENZTROPINE 2 MG/2 ML AMP IV PRN (09:58)
[2018-05-03] MEDS ORDERED: MYLANTA/LIDO VISC 2:1 300 ML BOTTLE SWISH/SPIT PRN (09:58)
[2018-05-03] MEDS ORDERED: VANCOMYCIN INJ 1,000 MG in SODIUM CHLORIDE 0.9% 250 ML IV SCH (10:30)
[2018-05-03] MEDS: VANCOMYCIN INJ 1,000 MG in SODIUM CHLORIDE 0.9% 250 ML IV SCH (13:34)
[2018-05-03 14:30] LABS: Hematocrit 28.1 VOL% (42.0-52.0); Immature Granulocytes % 8.4 %; Immature Granulocytes Absolute 0.14 #; Lymphocytes # 0.9 10*3/uL (1.4-4.0); Lymphocytes % 56.3 % (21.2-54.2); Mean Corpuscular Hemoglobin 34 PG (27-34); Mean Platelet Volume 11.8 FL (9.6-12.0); Monocytes % 1.8 % (1.7-12.7); Neutrophils # 0.6 10*3/uL (1.4-7.4); Neutrophils % 33.5 % (38.7-73.9); Platelet Count 53 T/CUMM (130-400); Red Blood Count 2.65 MC/CUMM (3.8-5.5); Red Cell Distribution Width 16.7 % (9.3-17.3); White Blood Count 1.7 T/CUMM (4-12)
[2018-05-03 14:50] LABS: Albumin 3.6 G/DL (3.4-5.0); Bilirubin,Total 0.4 MG/DL (0.2-1.0); Calcium 8.6 MG/DL (8.5-10.1); Osmolality,Calculated 283.3 MOS/KG (273-304); Potassium 4.1 MMOL/L (3.5-5.1); Total Protein 6.9 G/DL (6.4-8.3)
[2018-05-03 14:55] LABS: Anisocytosis 1+; Band Neutrophils 3 % (0-10); Lymphocytes 62 % (20-55); Platelet Estimate Decreased; Segmented Neutrophils 35 % (50-85); Total Cells Counted 100
[2018-05-03 14:56] LABS: Macrocytosis Slight
[2018-05-03 18:12] LABS: Apearance,Urine Slightly Hazy (Clear); Bilirubin,Urine Negative (Negative); Blood, Urine Negative (Negative); Glucose,Urine (UA) Negative (Negative); Ketones,Urine Negative (Negative); Mucus,Urine Occasional /LPF (Occasional); Nitrite,Urine Negative (Negative); Protein,Urine Negative; RBC,Urine 2 /HPF (0-4); Urine Color Yellow (Yellow); Urine Specific Gravity 1.009 (1.001-1.035); Urine Urobilinogen < 2.0 EU/DL (0.2-1.0); WBC,Urine 2 /HPF (0-6)
[2018-05-04] MEDS: VANCOMYCIN INJ 1,000 MG in SODIUM CHLORIDE 0.9% 250 ML IV SCH ×3 (00:57→23:59)
[2018-05-04] MEDS: CIPROFLOXACIN 500 MG TABLET PO SCH (20:30)
[2018-05-05 04:47] LABS: Basophils % 0.8 % (0.0-0.8); Eosinophils % 3.1 % (0.00-10.9); Hematocrit 26.9 VOL% (42.0-52.0); Hemoglobin 8.9 GM/DL (14.0-18.0); Lymphocytes # 0.8 10*3/uL (1.4-4.0); Lymphocytes % 62.8 % (21.2-54.2); Mean Corpuscular HGB Conc 33.1 GM/DL (32-36); Mean Corpuscular Hemoglobin 35 PG (27-34); Mean Corpuscular Volume 104.7 FL (87-102); Mean Platelet Volume 11.6 FL (9.6-12.0); Monocytes # 0.1 10*3/uL (0.11-0.8); Monocytes % 4.7 % (1.7-12.7); Neutrophils # 0.4 10*3/uL (1.4-7.4); Neutrophils % 28.6 % (38.7-73.9); Platelet Count 44 T/CUMM (130-400); Red Blood Count 2.57 MC/CUMM (3.8-5.5); Red Cell Distribution Width 16.7 % (9.3-17.3); White Blood Count 1.3 T/CUMM (4-12)
[2018-05-05 05:12] LABS: Calcium 7.8 MG/DL (8.5-10.1); Osmolality,Calculated 283.1 MOS/KG (273-304); Potassium 4.1 MMOL/L (3.5-5.1)
[2018-05-05 06:04] LABS: Hypochromasia 1+; Lymphocytes 92 % (20-55); Microcytosis 1+; Platelet Estimate Decreased; Segmented Neutrophils 8 % (50-85); Total Cells Counted 100
[2018-05-05] MEDS: CIPROFLOXACIN 500 MG TABLET PO SCH ×2 (08:36→20:37)
[2018-05-05] MEDS: cefTRIAXone 1,000 MG in SYRINGE 1 EACH IV SCH (09:49)
[2018-05-06 06:08] LABS: Basophils % 0.8 % (0.0-0.8); Eosinophils % 2.3 % (0.00-10.9); Hematocrit 26.8 VOL% (42.0-52.0); Hemoglobin 8.6 GM/DL (14.0-18.0); Immature Granulocytes % 0.8 %; Immature Granulocytes Absolute 0.01 #; Lymphocytes # 0.8 10*3/uL (1.4-4.0); Lymphocytes % 61.2 % (21.2-54.2); Mean Corpuscular HGB Conc 32.1 GM/DL (32-36); Mean Corpuscular Hemoglobin 34 PG (27-34); Mean Corpuscular Volume 107.2 FL (87-102); Mean Platelet Volume 11.7 FL (9.6-12.0); Monocytes # 0.1 10*3/uL (0.11-0.8); Monocytes % 4.7 % (1.7-12.7); Neutrophils # 0.4 10*3/uL (1.4-7.4); Neutrophils % 30.2 % (38.7-73.9); Platelet Count 41 T/CUMM (130-400); Red Cell Distribution Width 16.8 % (9.3-17.3); White Blood Count 1.3 T/CUMM (4-12)
[2018-05-06 06:22] LABS: Calcium 7.8 MG/DL (8.5-10.1); Osmolality,Calculated 280.3 MOS/KG (273-304); Potassium 4.1 MMOL/L (3.5-5.1)
[2018-05-06 06:42] LABS: Band Neutrophils 1 % (0-10); Eosinophils 1 % (0-10); Lymphocytes 69 % (20-55); Platelet Estimate Decreased; Segmented Neutrophils 27 % (50-85); Total Cells Counted 100
[2018-05-06 06:43] LABS: Anisocytosis 1+; Hypochromasia 1+; Macrocytosis 1+; Ovalocytes 1+; Polychromasia 2+
[2018-05-06 08:43] VITALS: BP 129/72
[2018-05-06] MEDS: cefTRIAXone 1,000 MG in SYRINGE 1 EACH IV SCH (09:11)
[2018-05-06] MEDS: CIPROFLOXACIN 500 MG TABLET PO SCH (09:13)
== END 2018-05-06 11:35 | disposition home health service (06) | DRG 872 ==
LOC: N.4E 11:11
PROVIDERS: ADMIT Specialist; ATTEND Specialist

== ENCOUNTER 2018-08-10 17:43 | Inpatient (IN) ==
[2018-08-10] MEDS ORDERED: SODIUM CHLORIDE 0.9% 1,000 ML IV STA (18:34)
[2018-08-10] MEDS ORDERED: ACETAMINOPHEN 500 MG TABLET PO STA (18:34)
[2018-08-10 18:45] LABS: Hemoglobin 8.5 GM/DL (14.0-18.0); Lymphocytes # 0.7 10*3/uL (1.4-4.0); Lymphocytes % 65.7 % (21.2-54.2); Mean Corpuscular HGB Conc 32.7 GM/DL (32-36); Mean Corpuscular Hemoglobin 35 PG (27-34); Mean Corpuscular Volume 107.4 FL (87-102); Mean Platelet Volume 12.1 FL (9.6-12.0); Monocytes # 0.1 10*3/uL (0.11-0.8); Monocytes % 5.1 % (1.7-12.7); NRBC # 0.02 10*3/uL; Neutrophils # 0.3 10*3/uL (1.4-7.4); Neutrophils % 27.2 % (38.7-73.9); Red Blood Count 2.42 MC/CUMM (3.8-5.5); Red Cell Distribution Width 16.5 % (9.3-17.3)
[2018-08-10 18:54] LABS: Platelet Count 39 T/CUMM (130-400)
[2018-08-10 18:58] LABS: Albumin 3.5 G/DL (3.4-5.0); Bilirubin,Total 1.4 MG/DL (0.2-1.0); Calcium 8.7 MG/DL (8.5-10.1); Osmolality,Calculated 271.1 MOS/KG (273-304); Total Protein 7.6 G/DL (6.4-8.3)
[2018-08-10 19:20] LABS: Band Neutrophils 1 % (0-10); Eosinophils 5 % (0-10); Hypochromasia 1+; Lymphocytes 69 % (20-55); Metamyelocytes 1 %; Nucleated Red Blood Cells 2 (0-5); Platelet Estimate Decreased; Segmented Neutrophils 21 % (50-85); Total Cells Counted 100
[2018-08-10 19:21] LABS: Macrocytosis 1+; Ovalocytes Few
[2018-08-10 19:34] LABS: Amorphous Crystals,Urine Occasional /HPF (Few); Apearance,Urine CLOUDY (Clear); Bacteria,Urine Occasional /HPF (Few); Bilirubin,Urine Negative (Negative); Blood, Urine Moderate mg/dL (Negative); Glucose,Urine (UA) Negative (Negative); Ketones,Urine Negative (Negative); Nitrite,Urine Negative (Negative); Protein,Urine 30 MG/DL; RBC,Urine 3 /HPF (0-4); Urine Specific Gravity 1.011 (1.001-1.035); Urine Urobilinogen < 2.0 EU/DL (0.2-1.0); WBC,Urine 5 /HPF (0-6)
[2018-08-10] MEDS ORDERED: MEROPENEM 1,000 MG in SODIUM CHLORIDE 0.9% 100 ML IV STA (20:04)
[2018-08-10] MEDS ORDERED: ALBUTEROL 1.25 MG/3 ML NEB RESP TX PRN (21:52)
[2018-08-10 22:00] LABS: Atypical Lymphocytes Few
[2018-08-10] MEDS ORDERED: ACETAMINOPHEN 325 MG TABLET PO PRN (23:11)
[2018-08-10] MEDS ORDERED: ONDANSETRON 4 MG/2 ML VIAL IV PRN (23:11)
[2018-08-10] MEDS: SODIUM CHLORIDE 0.9% 1,000 ML IV SCH (23:40)
[2018-08-11] MEDS: GABAPENTIN 600 MG TABLET PO SCH ×4 (02:37→20:51)
[2018-08-11] MEDS: MEROPENEM 1,000 MG in SODIUM CHLORIDE 0.9% 100 ML IV SCH ×3 (04:12→20:51)
[2018-08-11 05:01] LABS: Eosinophils % 2.3 % (0.00-10.9); Hematocrit 23.5 VOL% (42.0-52.0); Hemoglobin 7.7 GM/DL (14.0-18.0); Lymphocytes # 0.5 10*3/uL (1.4-4.0); Lymphocytes % 62.1 % (21.2-54.2); Mean Corpuscular HGB Conc 32.8 GM/DL (32-36); Mean Corpuscular Hemoglobin 35 PG (27-34); Mean Corpuscular Volume 107.8 FL (87-102); Mean Platelet Volume 12.7 FL (9.6-12.0); Monocytes # 0.1 10*3/uL (0.11-0.8); Monocytes % 5.7 % (1.7-12.7); Neutrophils # 0.3 10*3/uL (1.4-7.4); Neutrophils % 29.9 % (38.7-73.9); Red Blood Count 2.18 MC/CUMM (3.8-5.5); Red Cell Distribution Width 16.4 % (9.3-17.3)
[2018-08-11 05:08] LABS: Platelet Count 31 T/CUMM (130-400); White Blood Count 0.9 T/CUMM (4-12)
[2018-08-11 05:24] LABS: Bilirubin,Total 1.3 MG/DL (0.2-1.0); Osmolality,Calculated 274.8 MOS/KG (273-304); Potassium 3.9 MMOL/L (3.5-5.1); Total Protein 6.7 G/DL (6.4-8.3)
[2018-08-11 05:29] LABS: Atypical Lymphocytes Few; Eosinophils 2 % (0-10); Hypochromasia 1+; Lymphocytes 62 % (20-55); Macrocytosis 1+; Segmented Neutrophils 34 % (50-85); Total Cells Counted 100
[2018-08-11 05:30] LABS: Platelet Estimate Decreased
[2018-08-11] MEDS: MULTIVITAMIN (CENTRUM) TABLET PO SCH (10:04)
[2018-08-11] MEDS: PANTOPRAZOLE 40 MG TABLET PO SCH (10:04)
[2018-08-11] MEDS: MONTELUKAST 10 MG TABLET PO SCH (10:04)
[2018-08-12] MEDS: MEROPENEM 1,000 MG in SODIUM CHLORIDE 0.9% 100 ML IV SCH ×2 (04:02→12:16)
[2018-08-12 04:43] LABS: Eosinophils % 3.2 % (0.00-10.9); Hematocrit 23.5 VOL% (42.0-52.0); Hemoglobin 7.8 GM/DL (14.0-18.0); Lymphocytes # 0.9 10*3/uL (1.4-4.0); Lymphocytes % 70.2 % (21.2-54.2); Mean Corpuscular HGB Conc 33.2 GM/DL (32-36); Mean Corpuscular Hemoglobin 36 PG (27-34); Mean Corpuscular Volume 107.3 FL (87-102); Mean Platelet Volume 12.4 FL (9.6-12.0); Monocytes % 2.4 % (1.7-12.7); Neutrophils # 0.3 10*3/uL (1.4-7.4); Neutrophils % 24.2 % (38.7-73.9); Red Blood Count 2.19 MC/CUMM (3.8-5.5); Red Cell Distribution Width 16.2 % (9.3-17.3); White Blood Count 1.2 T/CUMM (4-12)
[2018-08-12 05:07] LABS: Platelet Count 34 T/CUMM (130-400)
[2018-08-12 06:22] LABS: Eosinophils 1 % (0-10); Hypochromasia 1+; Lymphocytes 74 % (20-55); Microcytosis 1+; Platelet Estimate Decreased; Polychromasia Few; Segmented Neutrophils 23 % (50-85); Total Cells Counted 100
[2018-08-12] MEDS: GABAPENTIN 600 MG TABLET PO SCH ×2 (09:36→14:51)
[2018-08-12] MEDS: MULTIVITAMIN (CENTRUM) TABLET PO SCH (09:36)
[2018-08-12] MEDS: PANTOPRAZOLE 40 MG TABLET PO SCH (09:36)
[2018-08-12] MEDS: MONTELUKAST 10 MG TABLET PO SCH (09:37)
[2018-08-12] MEDS: SODIUM CHLORIDE 0.9% 1,000 ML IV SCH (15:50)
[2018-08-12 16:25] VITALS: BP 126/74
== END 2018-08-12 19:05 | disposition home or self-care (01) | DRG 871 ==
LOC: N.ED 17:43 → SUATTDRO 20:14 → N.EDINP 20:14 → N.4E 23:04
PROVIDERS: ADMIT Hospitalist; ATTEND Internal Medicine

== ENCOUNTER 2020-03-01 12:11 | Inpatient (IN) ==
[2020-03-01 14:24] LABS: Basophils % 0.4 % (0.0-0.8); Hematocrit 26.2 VOL% (42.0-52.0); Hemoglobin 8.2 GM/DL (14.0-18.0); Immature Granulocytes % 0.4 %; Immature Granulocytes Absolute 0.01 #; Lymphocytes # 0.7 10*3/uL (1.4-4.0); Lymphocytes % 28.5 % (21.2-54.2); Mean Corpuscular HGB Conc 31.3 GM/DL (32-36); Mean Corpuscular Volume 93.2 FL (87-102); Mean Platelet Volume 10.8 FL (9.6-12.0); Monocytes % 8.8 % (1.7-12.7); Neutrophils % 61.9 % (38.7-73.9); Platelet Count 56 T/CUMM (130-400); Red Blood Count 2.81 MC/CUMM (3.8-5.5); Red Cell Distribution Width 17.9 % (9.3-17.3); White Blood Count 2.5 T/CUMM (4-12)
[2020-03-01 14:53] LABS: Albumin 2.5 G/DL (3.4-5.0); Bilirubin,Total 0.8 MG/DL (0.2-1.0); Calcium 8.3 MG/DL (8.5-10.1); Osmolality,Calculated 257.9 MOS/KG (273-304); Total Protein 6.8 G/DL (6.4-8.3)
[2020-03-01] MEDS ORDERED: SODIUM CHLORIDE 0.9% 500 ML IV STA ×2 (15:14→16:33)
[2020-03-01 15:21] LABS: Bacteria,Urine Occasional /HPF (Few); Bilirubin,Urine Negative (Negative); Blood, Urine Negative (Negative); Glucose,Urine (UA) Negative (Negative); Ketones,Urine Negative (Negative); Nitrite,Urine Negative (Negative); Protein,Urine Negative; RBC,Urine 5 /HPF (0-4); Urine Appearance CLEAR (Clear); Urine Color Yellow (Yellow); Urine Specific Gravity 1.011 (1.001-1.035); WBC,Urine 5 /HPF (0-6)
[2020-03-01 15:42] LABS: Lymphocytes 23 % (20-55); Microcytosis 2+; Segmented Neutrophils 69 % (50-85); Total Cells Counted 100
[2020-03-01 15:43] LABS: Elliptocytes Few; Hypochromasia 2+; Platelet Estimate Decreased
[2020-03-01] MEDS ORDERED: VANCOMYCIN INJ 2,000 MG in SODIUM CHLORIDE 0.9% 250 ML IV ONE (16:30)
[2020-03-01] MEDS ORDERED: cefTRIAXone 2,000 MG in SODIUM CHLORIDE 0.9% 100 ML IV STA (16:31)
[2020-03-01] MEDS ORDERED: ALBUTEROL/IPRATROPIUM 3 ML NEB RESP TX PRN (19:20)
[2020-03-01] MEDS ORDERED: ONDANSETRON 4 MG/2 ML VIAL IV PRN (19:20)
[2020-03-01] MEDS ORDERED: DEXTROSE 50% 25 GM/50 ML VIAL IV PRN (19:20)
[2020-03-01] MEDS ORDERED: GLUCAGON 1 MG VIAL IM PRN (19:20)
[2020-03-01] MEDS: MORPHINE 4 MG/1 ML VIAL IV PRN (22:21)
[2020-03-02] MEDS: MORPHINE 4 MG/1 ML VIAL IV PRN (02:15)
[2020-03-02 05:44] LABS: Basophils % 0.4 % (0.0-0.8); Hematocrit 25.1 VOL% (42.0-52.0); Lymphocytes # 0.6 10*3/uL (1.4-4.0); Lymphocytes % 23.2 % (21.2-54.2); Mean Corpuscular HGB Conc 31.9 GM/DL (32-36); Mean Corpuscular Volume 90.9 FL (87-102); Mean Platelet Volume 10.4 FL (9.6-12.0); Monocytes % 8.7 % (1.7-12.7); Neutrophils % 67.7 % (38.7-73.9); Platelet Count 52 T/CUMM (130-400); Red Blood Count 2.76 MC/CUMM (3.8-5.5); Red Cell Distribution Width 18.1 % (9.3-17.3); White Blood Count 2.5 T/CUMM (4-12)
[2020-03-02 06:00] LABS: Calcium 8.2 MG/DL (8.5-10.1); Osmolality,Calculated 266.2 MOS/KG (273-304)
[2020-03-02 06:02] LABS: Hypochromasia 2+; Microcytosis 1+; Platelet Estimate Decreased
[2020-03-02] MEDS: PANTOPRAZOLE 40 MG TABLET PO SCH (08:33)
[2020-03-02] MEDS: SODIUM CHLORIDE 0.9% 1,000 ML IV SCH ×2 (08:33→10:08)
[2020-03-02] MEDS ORDERED: SODIUM CHLORIDE 0.9% 500 ML IV SCH (10:00)
[2020-03-02] MEDS: VANCOMYCIN INJ 1,750 MG in SODIUM CHLORIDE 0.9% 500 ML IV SCH (13:15)
[2020-03-02] MEDS: GABAPENTIN 600 MG TABLET PO SCH ×2 (14:30→20:30)
[2020-03-02] MEDS ORDERED: VENETOCLAX 100 MG PO SCH (15:00)
[2020-03-02] MEDS: cefTRIAXone 2,000 MG in SYRINGE 1 EACH IV SCH (17:52)
[2020-03-02] MEDS ORDERED: LOPERAMIDE 2 MG CAPSULE PO PRN ×2 (18:03)
[2020-03-02] MEDS ORDERED: ALUMINUM/MAGNES/SIMETH MAX STR 30 ML UDCUP PO PRN (18:03)
[2020-03-02] MEDS ORDERED: MAGNESIUM HYDROXIDE SUSP 30 ML UDCUP PO PRN (18:03)
[2020-03-02] MEDS ORDERED: guaiFENesin 200 MG/10 ML UDCUP PO PRN (18:03)
[2020-03-02] MEDS ORDERED: ACETAMINOPHEN 325 MG TABLET PO PRN (18:03)
[2020-03-02] MEDS ORDERED: LACTULOSE 20 GM/30 ML UDCUP PO PRN (18:03)
[2020-03-02] MEDS ORDERED: ONDANSETRON 4 MG/2 ML VIAL IV PRN (18:03)
[2020-03-02] MEDS ORDERED: diphenhydrAMINE CAP 25 MG CAPSULE PO PRN (18:03)
[2020-03-02] MEDS ORDERED: traMADol 50 MG TABLET PO PRN (18:03)
[2020-03-02] MEDS ORDERED: MYLANTA/LIDO VISC 2:1 300 ML BOTTLE SWISH/SWAL PRN (18:03)
[2020-03-02] MEDS ORDERED: ALPRAZolam 0.25 MG TABLET PO PRN (18:03)
[2020-03-02] MEDS ORDERED: MYLANTA/LIDO VISC 2:1 300 ML BOTTLE SWISH/SPIT PRN (18:03)
[2020-03-02] MEDS ORDERED: PROMETHAZINE INJ 25 MG in SODIUM CHLORIDE 0.9% 50 ML IV PRN (18:03)
[2020-03-03] MEDS: VANCOMYCIN INJ 1,750 MG in SODIUM CHLORIDE 0.9% 500 ML IV SCH ×2 (06:05→23:57)
[2020-03-03 06:44] LABS: Basophils % 0.4 % (0.0-0.8); Hemoglobin 7.7 GM/DL (14.0-18.0); Immature Granulocytes % 0.8 %; Immature Granulocytes Absolute 0.02 #; Lymphocytes # 0.7 10*3/uL (1.4-4.0); Lymphocytes % 29.3 % (21.2-54.2); Mean Corpuscular HGB Conc 30.8 GM/DL (32-36); Mean Corpuscular Volume 92.9 FL (87-102); Mean Platelet Volume 9.7 FL (9.6-12.0); Monocytes % 8.8 % (1.7-12.7); Neutrophils % 60.7 % (38.7-73.9); Red Blood Count 2.69 MC/CUMM (3.8-5.5); Red Cell Distribution Width 18.2 % (9.3-17.3); White Blood Count 2.4 T/CUMM (4-12)
[2020-03-03 06:50] LABS: Platelet Count 50 T/CUMM (130-400)
[2020-03-03 07:02] LABS: Alanine Aminotransferase 29 U/L (16-61); Albumin 2.1 G/DL (3.4-5.0); Alkaline Phosphatase 107 U/L (45-117); Aspartate Amino Transferase 24 U/L (0-37); Bilirubin,Total < 0.39 MG/DL (0.2-1.0); Blood Urea Nitrogen 9 MG/DL (7-18); Calcium 7.9 MG/DL (8.5-10.1); Estimated Glom Filtration Rate 96 ML/MIN; Glucose 91 MG/DL (74-106); Osmolality,Calculated 271.8 MOS/KG (273-304); Total Protein 6.3 G/DL (6.4-8.3)
[2020-03-03 07:18] LABS: Band Neutrophils 1 % (0-10); Lymphocytes 21 % (20-55); Segmented Neutrophils 70 % (50-85); Total Cells Counted 100
[2020-03-03 07:19] LABS: Hypochromasia 2+; Microcytosis 1+; Ovalocytes Slight; Platelet Estimate Decreased
[2020-03-03] MEDS ORDERED: SODIUM CHLORIDE 0.9% 1,000 ML IV PRN (08:08)
[2020-03-03] MEDS: DULoxetine 30 MG CAPSULE PO SCH (08:20)
[2020-03-03] MEDS: PANTOPRAZOLE 40 MG TABLET PO SCH (08:21)
[2020-03-03] MEDS: GABAPENTIN 600 MG TABLET PO SCH ×3 (08:21→21:53)
[2020-03-03] MEDS: MULTIVITAMIN (CENTRUM) TABLET PO SCH (08:21)
[2020-03-03] MEDS: SODIUM CHLORIDE 0.9% 1,000 ML IV SCH ×2 (08:38→21:42)
[2020-03-03] MEDS ORDERED: BISACODYL 10 MG SUPP RECTAL PRN (08:53)
[2020-03-03] MEDS: cefTRIAXone 2,000 MG in SYRINGE 1 EACH IV SCH (17:31)
[2020-03-03] MEDS: TEMAZEPAM 7.5 MG CAPSULE PO PRN (21:54)
[2020-03-04 05:45] LABS: Hemoglobin 8.5 GM/DL (14.0-18.0); White Blood Count 2.5 T/CUMM (4-12)
[2020-03-04 05:46] LABS: Basophils % 0.8 % (0.0-0.8); Lymphocytes # 0.8 10*3/uL (1.4-4.0); Lymphocytes % 30.8 % (21.2-54.2); Mean Corpuscular HGB Conc 32.7 GM/DL (32-36); Mean Corpuscular Volume 89.7 FL (87-102); Mean Platelet Volume 10.8 FL (9.6-12.0); Monocytes % 11.7 % (1.7-12.7); Neutrophils % 56.7 % (38.7-73.9); Red Cell Distribution Width 16.9 % (9.3-17.3)
[2020-03-04 05:47] LABS: Platelet Count 48 T/CUMM (130-400)
[2020-03-04 06:15] LABS: Hypochromasia 2+; Microcytosis 1+; Platelet Estimate Decreased
[2020-03-04 06:18] LABS: Calcium 7.9 MG/DL (8.5-10.1); Osmolality,Calculated 270.8 MOS/KG (273-304)
[2020-03-04] MEDS ORDERED: POTASSIUM CHLORIDE 20 MEQ TABLET PO ONE (07:32)
[2020-03-04] MEDS: MULTIVITAMIN (CENTRUM) TABLET PO SCH (09:51)
[2020-03-04] MEDS: GABAPENTIN 600 MG TABLET PO SCH ×3 (09:51→21:30)
[2020-03-04] MEDS: DULoxetine 30 MG CAPSULE PO SCH (09:51)
[2020-03-04] MEDS: PANTOPRAZOLE 40 MG TABLET PO SCH (09:51)
[2020-03-04] MEDS ORDERED: GENTAMICIN INJ 420 MG in SODIUM CHLORIDE 0.9% 100 ML IV SCH (16:00)
[2020-03-04] MEDS: AMPICILLIN INJ 2,000 MG in SODIUM CHLORIDE 0.9% 100 ML IV SCH ×2 (18:06→23:06)
[2020-03-04] MEDS: GENTAMICIN INJ 80 MG in PREMIX 1 EACH IV SCH (21:27)
[2020-03-04] MEDS: SODIUM CHLORIDE 0.9% 1,000 ML IV SCH (21:28)
[2020-03-04] MEDS: TEMAZEPAM 7.5 MG CAPSULE PO PRN (21:30)
[2020-03-04] MEDS: POTASSIUM CHLORIDE 20 MEQ TABLET PO PRN ×2 (21:30→23:35)
[2020-03-05] MEDS: AMPICILLIN INJ 2,000 MG in SODIUM CHLORIDE 0.9% 100 ML IV SCH ×7 (01:47→22:34)
[2020-03-05] MEDS: POTASSIUM CHLORIDE 20 MEQ TABLET PO PRN ×2 (01:48→04:01)
[2020-03-05] MEDS: SODIUM CHLORIDE 0.9% 1,000 ML IV SCH ×4 (07:12→18:10)
[2020-03-05] MEDS: GENTAMICIN INJ 80 MG in PREMIX 1 EACH IV SCH ×2 (08:10→20:59)
[2020-03-05] MEDS: GABAPENTIN 600 MG TABLET PO SCH ×3 (08:11→20:59)
[2020-03-05] MEDS: DULoxetine 30 MG CAPSULE PO SCH (08:11)
[2020-03-05] MEDS: PANTOPRAZOLE 40 MG TABLET PO SCH (08:11)
[2020-03-05] MEDS: MULTIVITAMIN (CENTRUM) TABLET PO SCH (08:11)
[2020-03-05] MEDS: TEMAZEPAM 7.5 MG CAPSULE PO PRN ×2 (20:59→22:35)
[2020-03-06] MEDS: AMPICILLIN INJ 2,000 MG in SODIUM CHLORIDE 0.9% 100 ML IV SCH ×6 (03:26→21:52)
[2020-03-06] MEDS: GENTAMICIN INJ 80 MG in PREMIX 1 EACH IV SCH ×2 (08:54→21:51)
[2020-03-06] MEDS: DULoxetine 30 MG CAPSULE PO SCH (08:57)
[2020-03-06] MEDS: MULTIVITAMIN (CENTRUM) TABLET PO SCH (08:58)
[2020-03-06] MEDS: GABAPENTIN 600 MG TABLET PO SCH ×3 (08:58→20:29)
[2020-03-06] MEDS: PANTOPRAZOLE 40 MG TABLET PO SCH (08:58)
[2020-03-06] MEDS: TEMAZEPAM 7.5 MG CAPSULE PO PRN (20:29)
[2020-03-07] MEDS: AMPICILLIN INJ 2,000 MG in SODIUM CHLORIDE 0.9% 100 ML IV SCH ×6 (02:55→23:45)
[2020-03-07 05:12] LABS: Basophils % 0.7 % (0.0-0.8); Hematocrit 28.5 VOL% (42.0-52.0); Hemoglobin 9.1 GM/DL (14.0-18.0); Immature Granulocytes % 0.3 %; Immature Granulocytes Absolute 0.01 #; Lymphocytes # 0.9 10*3/uL (1.4-4.0); Lymphocytes % 29.3 % (21.2-54.2); Mean Corpuscular HGB Conc 31.9 GM/DL (32-36); Mean Corpuscular Volume 89.9 FL (87-102); Mean Platelet Volume 10.1 FL (9.6-12.0); Monocytes % 14.7 % (1.7-12.7); Red Blood Count 3.17 MC/CUMM (3.8-5.5); Red Cell Distribution Width 16.6 % (9.3-17.3); White Blood Count 3.1 T/CUMM (4-12)
[2020-03-07 05:17] LABS: Platelet Count 55 T/CUMM (130-400)
[2020-03-07 05:23] LABS: Calcium 8.3 MG/DL (8.5-10.1); Osmolality,Calculated 268.1 MOS/KG (273-304)
[2020-03-07 05:29] LABS: Hypochromasia 1+; Microcytosis 1+
[2020-03-07 05:30] LABS: Platelet Estimate Decreased
[2020-03-07] MEDS: MULTIVITAMIN (CENTRUM) TABLET PO SCH (08:44)
[2020-03-07] MEDS: PANTOPRAZOLE 40 MG TABLET PO SCH (08:44)
[2020-03-07] MEDS: GENTAMICIN INJ 80 MG in PREMIX 1 EACH IV SCH ×2 (08:44→22:19)
[2020-03-07] MEDS: DULoxetine 30 MG CAPSULE PO SCH (08:44)
[2020-03-07] MEDS: GABAPENTIN 600 MG TABLET PO SCH ×3 (08:44→22:19)
[2020-03-07] MEDS: TEMAZEPAM 7.5 MG CAPSULE PO PRN (22:19)
[2020-03-08] MEDS: TEMAZEPAM 7.5 MG CAPSULE PO PRN ×2 (00:24→21:35)
[2020-03-08] MEDS: AMPICILLIN INJ 2,000 MG in SODIUM CHLORIDE 0.9% 100 ML IV SCH ×6 (02:11→22:55)
[2020-03-08] MEDS: GABAPENTIN 600 MG TABLET PO SCH ×3 (09:19→21:35)
[2020-03-08] MEDS: GENTAMICIN INJ 80 MG in PREMIX 1 EACH IV SCH ×2 (09:19→21:35)
[2020-03-08] MEDS: MULTIVITAMIN (CENTRUM) TABLET PO SCH (09:19)
[2020-03-08] MEDS: DULoxetine 30 MG CAPSULE PO SCH (09:19)
[2020-03-08] MEDS: MORPHINE 4 MG/1 ML VIAL IV PRN (09:22)
[2020-03-08] MEDS: PANTOPRAZOLE 40 MG TABLET PO SCH (09:29)
[2020-03-08] MEDS: SODIUM CHLORIDE 0.9% 1,000 ML IV SCH (10:02)
[2020-03-08] MEDS ORDERED: POTASSIUM CHLORIDE 20 MEQ TABLET PO ONE (11:11)
[2020-03-09] MEDS: AMPICILLIN INJ 2,000 MG in SODIUM CHLORIDE 0.9% 100 ML IV SCH ×6 (02:16→21:29)
[2020-03-09 06:33] LABS: Basophils % 0.6 % (0.0-0.8); Hematocrit 30.3 VOL% (42.0-52.0); Hemoglobin 9.7 GM/DL (14.0-18.0); Immature Granulocytes % 0.6 %; Immature Granulocytes Absolute 0.02 #; Lymphocytes # 0.9 10*3/uL (1.4-4.0); Lymphocytes % 27.9 % (21.2-54.2); Mean Corpuscular Volume 90.4 FL (87-102); Mean Platelet Volume 10.5 FL (9.6-12.0); Monocytes % 14.3 % (1.7-12.7); Neutrophils % 56.6 % (38.7-73.9); Red Blood Count 3.35 MC/CUMM (3.8-5.5); Red Cell Distribution Width 16.7 % (9.3-17.3); White Blood Count 3.1 T/CUMM (4-12)
[2020-03-09 06:37] LABS: Platelet Count 62 T/CUMM (130-400)
[2020-03-09 06:57] LABS: Hypochromasia 1+; Microcytosis 1+; Ovalocytes Slight; Platelet Estimate Decreased
[2020-03-09 06:59] LABS: Calcium 8.4 MG/DL (8.5-10.1); Osmolality,Calculated 266.2 MOS/KG (273-304)
[2020-03-09] MEDS: GENTAMICIN INJ 80 MG in PREMIX 1 EACH IV SCH ×2 (08:36→20:33)
[2020-03-09] MEDS: GABAPENTIN 600 MG TABLET PO SCH ×3 (08:46→20:34)
[2020-03-09] MEDS: MULTIVITAMIN (CENTRUM) TABLET PO SCH (08:46)
[2020-03-09] MEDS: PANTOPRAZOLE 40 MG TABLET PO SCH (08:46)
[2020-03-09] MEDS: DULoxetine 30 MG CAPSULE PO SCH (08:47)
[2020-03-10] MEDS: AMPICILLIN INJ 2,000 MG in SODIUM CHLORIDE 0.9% 100 ML IV SCH ×6 (02:02→21:00)
[2020-03-10] MEDS: GENTAMICIN INJ 80 MG in PREMIX 1 EACH IV SCH ×2 (08:35→21:00)
[2020-03-10] MEDS: MULTIVITAMIN (CENTRUM) TABLET PO SCH (08:37)
[2020-03-10] MEDS: GABAPENTIN 600 MG TABLET PO SCH ×3 (08:37→21:02)
[2020-03-10] MEDS: DULoxetine 30 MG CAPSULE PO SCH (08:37)
[2020-03-10] MEDS: PANTOPRAZOLE 40 MG TABLET PO SCH (08:38)
[2020-03-10] MEDS ORDERED: TUBERCULIN SKIN TEST 0.1 ML SYRINGE INTRADERM ONE (13:36)
[2020-03-10] MEDS: TEMAZEPAM 7.5 MG CAPSULE PO PRN (21:01)
[2020-03-11] MEDS: AMPICILLIN INJ 2,000 MG in SODIUM CHLORIDE 0.9% 100 ML IV SCH ×6 (02:34→20:35)
[2020-03-11 04:52] LABS: Basophils % 0.5 % (0.0-0.8); Hematocrit 28.7 VOL% (42.0-52.0); Hemoglobin 9.1 GM/DL (14.0-18.0); Immature Granulocytes % 0.3 %; Immature Granulocytes Absolute 0.01 #; Lymphocytes # 1.1 10*3/uL (1.4-4.0); Lymphocytes % 28.4 % (21.2-54.2); Mean Corpuscular HGB Conc 31.7 GM/DL (32-36); Mean Corpuscular Volume 91.4 FL (87-102); Monocytes % 15.8 % (1.7-12.7); Red Blood Count 3.14 MC/CUMM (3.8-5.5); Red Cell Distribution Width 16.7 % (9.3-17.3); White Blood Count 3.7 T/CUMM (4-12)
[2020-03-11 05:06] LABS: Platelet Count 68 T/CUMM (130-400)
[2020-03-11 05:10] LABS: Atypical Lymphocytes Few; Band Neutrophils 2 % (0-10); Lymphocytes 26 % (20-55); Segmented Neutrophils 61 % (50-85); Total Cells Counted 100
[2020-03-11 05:11] LABS: Calcium 8.3 MG/DL (8.5-10.1)
[2020-03-11 05:12] LABS: Hypochromasia 1+; Microcytosis 1+; Ovalocytes Few; Platelet Estimate Decreased
[2020-03-11] MEDS: GABAPENTIN 600 MG TABLET PO SCH ×3 (08:25→21:23)
[2020-03-11] MEDS: GENTAMICIN INJ 80 MG in PREMIX 1 EACH IV SCH ×2 (08:25→19:45)
[2020-03-11] MEDS: PANTOPRAZOLE 40 MG TABLET PO SCH (08:25)
[2020-03-11] MEDS: MULTIVITAMIN (CENTRUM) TABLET PO SCH (08:26)
[2020-03-11] MEDS: DULoxetine 30 MG CAPSULE PO SCH (08:26)
[2020-03-11] MEDS: TEMAZEPAM 7.5 MG CAPSULE PO PRN (21:24)
[2020-03-12] MEDS: AMPICILLIN INJ 2,000 MG in SODIUM CHLORIDE 0.9% 100 ML IV SCH ×4 (02:22→14:31)
[2020-03-12] MEDS: GENTAMICIN INJ 80 MG in PREMIX 1 EACH IV SCH (08:29)
[2020-03-12] MEDS: GABAPENTIN 600 MG TABLET PO SCH ×2 (08:31→14:31)
[2020-03-12] MEDS: MULTIVITAMIN (CENTRUM) TABLET PO SCH (08:31)
[2020-03-12] MEDS: DULoxetine 30 MG CAPSULE PO SCH (08:31)
[2020-03-12] MEDS: PANTOPRAZOLE 40 MG TABLET PO SCH (08:31)
[2020-03-12 15:47] VITALS: BP 124/67
== END 2020-03-12 15:50 | disposition home health service (06) | DRG 551 ==
LOC: N.EDINP 12:11 → N.ED 12:11 → N.4E 21:20 → SUATTDRO 03-02 15:30
PROVIDERS: ADMIT Internal Medicine; ATTEND Internal Medicine

== ENCOUNTER 2020-08-01 17:25 | Inpatient (IN) ==
[2020-08-01 18:03] LABS: Lymphocytes # 0.2 10*3/uL (1.4-4.0); Lymphocytes % 60.5 % (21.2-54.2); Mean Corpuscular HGB Conc 33.5 GM/DL (32-36); Mean Corpuscular Volume 85.6 FL (87-102); Mean Platelet Volume 12.5 FL (9.6-12.0); Monocytes % 5.3 % (1.7-12.7); Neutrophils % 34.2 % (38.7-73.9); Red Blood Count 2.02 MC/CUMM (3.8-5.5); Red Cell Distribution Width 12.9 % (9.3-17.3)
[2020-08-01 18:09] LABS: Hematocrit 17.3 VOL% (42.0-52.0)
[2020-08-01 18:10] LABS: Platelet Count 3 T/CUMM (130-400); White Blood Count 0.4 T/CUMM (4-12)
[2020-08-01 18:11] LABS: Hemoglobin 5.8 GM/DL (14.0-18.0)
[2020-08-01 18:14] LABS: Bacteria,Urine Many /HPF (Few); Bilirubin,Urine Negative (Negative); Blood, Urine Small mg/dL (Negative); Glucose,Urine (UA) Negative (Negative); Hyaline Casts,Urine 4 /LPF (0-3); Ketones,Urine Negative (Negative); Mucus,Urine Occasional /LPF (Occasional); Nitrite,Urine Negative (Negative); Protein,Urine Negative; RBC,Urine 2 /HPF (0-4); Squamous Epithelial Cell,Urine Occasional /HPF (0-10); Urine Appearance CLOUDY (Clear); Urine Color Yellow (Yellow); Urine Specific Gravity 1.012 (1.001-1.035); WBC,Urine 14 /HPF (0-6)
[2020-08-01 18:15] LABS: INR 1.1; Partial Thromboplastin Time 27.7 SECS (23.9-33.8)
[2020-08-01 18:24] LABS: Albumin 2.4 G/DL (3.4-5.0); Bilirubin,Total 0.6 MG/DL (0.2-1.0); Calcium 7.9 MG/DL (8.5-10.1); Osmolality,Calculated 273.1 MOS/KG (273-304); Potassium 3.8 MMOL/L (3.5-5.1); Total Protein 6.1 G/DL (5.0-7.5)
[2020-08-01 18:34] LABS: Lymphocytes 50 % (20-55); Platelet Estimate Decreased; Segmented Neutrophils 50 % (50-85); Total Cells Counted 100
[2020-08-01 18:35] LABS: Anisocytosis 1+
[2020-08-01 18:37] LABS: Microcytosis 1+
[2020-08-01] MEDS ORDERED: FILGRASTIM-SNDZ 300 MCG/0.5 ML SYRINGE SUBCUT ONE (18:43)
[2020-08-01] MEDS ORDERED: MEROPENEM 500 MG in SODIUM CHLORIDE 0.9% 100 ML IV ONE (18:43)
[2020-08-01] MEDS ORDERED: GLUCAGON 1 MG VIAL IM PRN (20:27)
[2020-08-01] MEDS ORDERED: guaiFENesin/DM ER 600-30 MG TABLET PO PRN (20:27)
[2020-08-01] MEDS ORDERED: NICOTINE 21 MG/24 HR PATCH TRANSDERM PRN (20:27)
[2020-08-01] MEDS ORDERED: SODIUM CHLORIDE 0.9% 1,000 ML IV PRN (20:27)
[2020-08-01] MEDS ORDERED: ACETAMINOPHEN 325 MG TABLET PO PRN (20:27)
[2020-08-01] MEDS ORDERED: diphenhydrAMINE CAP 25 MG CAPSULE PO PRN (20:27)
[2020-08-01] MEDS ORDERED: hydrALAZINE 20 MG/1 ML VIAL IV PRN (20:27)
[2020-08-01] MEDS ORDERED: DEXTROSE 50% 25 GM/50 ML VIAL IV PRN (20:27)
[2020-08-01] MEDS ORDERED: ONDANSETRON 4 MG/2 ML VIAL IV PRN (20:27)
[2020-08-02] MEDS: MEROPENEM 500 MG in SODIUM CHLORIDE 0.9% 100 ML IV SCH ×4 (00:33→22:12)
[2020-08-02 04:09] LABS: Lymphocytes # 0.3 10*3/uL (1.4-4.0); Mean Corpuscular HGB Conc 33.8 GM/DL (32-36); Mean Corpuscular Volume 85.3 FL (87-102); Mean Platelet Volume 10.5 FL (9.6-12.0); Monocytes % 9.1 % (1.7-12.7); Neutrophils % 30.9 % (38.7-73.9); Red Blood Count 1.84 MC/CUMM (3.8-5.5)
[2020-08-02 04:28] LABS: Hemoglobin 5.3 GM/DL (14.0-18.0); White Blood Count 0.6 T/CUMM (4-12)
[2020-08-02 04:29] LABS: Hematocrit 15.7 VOL% (42.0-52.0); Platelet Count 3 T/CUMM (130-400)
[2020-08-02 04:36] LABS: Atypical Lymphocytes Few; Band Neutrophils 4 % (0-10); Hypochromasia 2+; Lymphocytes 64 % (20-55); Microcytosis 1+; Platelet Estimate Decreased; Segmented Neutrophils 24 % (50-85); Total Cells Counted 100
[2020-08-02 04:46] LABS: Albumin 2.2 G/DL (3.4-5.0); Calcium 7.7 MG/DL (8.5-10.1); Osmolality,Calculated 275.1 MOS/KG (273-304); Potassium 3.9 MMOL/L (3.5-5.1); Total Protein 5.8 G/DL (5.0-7.5)
[2020-08-02 13:15] LABS: Hematocrit 17.5 VOL% (42.0-52.0); Hemoglobin 5.8 GM/DL (14.0-18.0)
[2020-08-02] MEDS ORDERED: SODIUM CHLORIDE 0.9% 1,000 ML IV PRN (13:54)
[2020-08-03] MEDS: MEROPENEM 500 MG in SODIUM CHLORIDE 0.9% 100 ML IV SCH ×3 (04:39→15:30)
[2020-08-03 06:28] LABS: Hemoglobin 6.9 GM/DL (14.0-18.0); Immature Granulocytes % 2.9 %; Immature Granulocytes Absolute 0.02 #; Lymphocytes # 0.5 10*3/uL (1.4-4.0); Lymphocytes % 66.7 % (21.2-54.2); Mean Corpuscular HGB Conc 34.5 GM/DL (32-36); Mean Corpuscular Volume 84.7 FL (87-102); Monocytes % 2.9 % (1.7-12.7); Neutrophils % 27.5 % (38.7-73.9); Red Blood Count 2.36 MC/CUMM (3.8-5.5)
[2020-08-03 06:40] LABS: White Blood Count 0.7 T/CUMM (4-12)
[2020-08-03 06:42] LABS: Platelet Count 10 T/CUMM (130-400)
[2020-08-03 06:47] LABS: Albumin 2.4 G/DL (3.4-5.0); Bilirubin,Total 1.2 MG/DL (0.2-1.0); Calcium 8.3 MG/DL (8.5-10.1); Osmolality,Calculated 280.7 MOS/KG (273-304); Potassium 4.1 MMOL/L (3.5-5.1); Total Protein 6.3 G/DL (5.0-7.5)
[2020-08-03 07:10] LABS: Lymphocytes 73 % (20-55); Segmented Neutrophils 20 % (50-85); Total Cells Counted 100
[2020-08-03 07:11] LABS: Atypical Lymphocytes Few; Hypochromasia 1+; Microcytosis 1+; Platelet Estimate Decreased
[2020-08-03] MEDS ORDERED: SODIUM CHLORIDE 0.9% 1,000 ML IV PRN ×2 (08:15→16:43)
[2020-08-03] MEDS: PANTOPRAZOLE 40 MG VIAL IV SCH (15:30)
[2020-08-03] MEDS ORDERED: FUROSEMIDE 40 MG/4 ML VIAL IV ONE (16:42)
[2020-08-03] MEDS ORDERED: MORPHINE 4 MG/1 ML VIAL IV ONE (23:51)
[2020-08-04] MEDS: PANTOPRAZOLE 40 MG VIAL IV SCH ×2 (00:13→08:19)
[2020-08-04] MEDS: MEROPENEM 500 MG in SODIUM CHLORIDE 0.9% 100 ML IV SCH ×2 (00:14→05:31)
[2020-08-04 06:07] LABS: Hematocrit 23.1 VOL% (42.0-52.0); Hemoglobin 8.1 GM/DL (14.0-18.0); Immature Granulocytes % 4.2 %; Immature Granulocytes Absolute 0.03 #; Lymphocytes # 0.5 10*3/uL (1.4-4.0); Lymphocytes % 67.6 % (21.2-54.2); Mean Corpuscular HGB Conc 35.1 GM/DL (32-36); Mean Corpuscular Volume 84.3 FL (87-102); Monocytes % 11.3 % (1.7-12.7); Neutrophils % 16.9 % (38.7-73.9); Red Blood Count 2.74 MC/CUMM (3.8-5.5); Red Cell Distribution Width 13.1 % (9.3-17.3)
[2020-08-04 06:09] LABS: Platelet Count 29 T/CUMM (130-400); White Blood Count 0.7 T/CUMM (4-12)
[2020-08-04 06:31] LABS: Atypical Lymphocytes Few; Lymphocytes 76 % (20-55); Platelet Estimate Decreased; Segmented Neutrophils 12 % (50-85); Total Cells Counted 100
[2020-08-04 06:32] LABS: Hypochromasia 1+; Microcytosis 1+
[2020-08-04 06:36] LABS: Albumin 2.5 G/DL (3.4-5.0); Bilirubin,Total 1.1 MG/DL (0.2-1.0); Calcium 8.3 MG/DL (8.5-10.1); Osmolality,Calculated 277.7 MOS/KG (273-304); Potassium 3.2 MMOL/L (3.5-5.1); Total Protein 6.4 G/DL (5.0-7.5)
[2020-08-04] MEDS: MORPHINE 4 MG/1 ML VIAL IV PRN ×3 (08:20→19:45)
[2020-08-05] MEDS: MORPHINE 4 MG/1 ML VIAL IV PRN ×8 (03:19→23:22)
[2020-08-05 14:25] LABS: Hematocrit 25.7 VOL% (42.0-52.0); Hemoglobin 8.4 GM/DL (14.0-18.0); Immature Granulocytes % 1.8 %; Immature Granulocytes Absolute 0.01 #; Lymphocytes # 0.4 10*3/uL (1.4-4.0); Mean Corpuscular HGB Conc 32.7 GM/DL (32-36); Mean Corpuscular Volume 89.5 FL (87-102); Mean Platelet Volume 10.6 FL (9.6-12.0); Monocytes % 5.4 % (1.7-12.7); Neutrophils % 17.8 % (38.7-73.9); Red Blood Count 2.87 MC/CUMM (3.8-5.5); Red Cell Distribution Width 12.9 % (9.3-17.3)
[2020-08-05 14:27] LABS: Platelet Count 18 T/CUMM (130-400); White Blood Count 0.6 T/CUMM (4-12)
[2020-08-05 15:03] LABS: Anisocytosis 1+; Burr Cells Few; Hypochromasia 1+; Lymphocytes 79 % (20-55); Microcytosis 1+; Platelet Estimate Decreased; Segmented Neutrophils 16 % (50-85); Total Cells Counted 100
[2020-08-05] MEDS ORDERED: chlorproMAZINE INJ 12.5 MG in SODIUM CHLORIDE 0.9% 100 ML IV PRN (15:37)
[2020-08-05] MEDS ORDERED: diphenhydrAMINE 50 MG/1 ML VIAL IV PRN (19:27)
[2020-08-06] MEDS: MORPHINE 4 MG/1 ML VIAL IV PRN ×4 (01:52→10:24)
[2020-08-06 11:35] VITALS: BP 130/72
== END 2020-08-06 12:07 | disposition hospice, home (50) | DRG 835 ==
LOC: EDUNIT# → EDBD → N.ED 17:25 → N.EDINP 20:27 → N.4E 21:53
PROVIDERS: ADMIT Internal Medicine; ATTEND Internal Medicine